=== PATIENT | female | born 1955 | race Caucasian/White ===

== ENCOUNTER 2020-08-11 08:45 | Emergency (ER) | payer MEDICARE, SELFPAY ==
[2020-08-11 09:14] VITALS: BP 216/111; PULSE 65; RESP 16; TEMP 36.6; O2SAT 97; BMI 38.0
--- NOTE | 2020-08-11 09:22 | XR_ITS ---
EXAMINATION: CR SHOULDER, LEFT CLINICAL INFORMATION: Left shoulder pain. COMPARISON: Contralateral right shoulder films from 07/04/2017. TECHNIQUE: AP external rotation, Grashey, scapular Y, and axillary views of the left shoulder. FINDINGS: No acute fracture or dislocation. Glenohumeral joint and acromioclavicular joints intact. Mild degenerative change at the acromioclavicular joint with moderate bursal surface spurring seen. No soft tissue calcification. Included left ribs intact. Low lung volumes are seen with crowding of bronchovascular lung markings in the left lung base. XR/XR shoulder LT min 2V IMPRESSION: No acute fracture or dislocation. Mild degenerative change at the acromioclavicular joint.
--- NOTE | 2020-08-11 09:22 | ECG_ITS ---
Test Reason : SHOULDER PAIN Blood Pressure : / mmHG Vent. Rate : 063 BPM Atrial Rate : 063 BPM P-R Int : 210 ms QRS Dur : 080 ms QT Int : 388 ms P-R-T Axes : 049 -02 010 degrees QTc Int : 397 ms Sinus rhythm with 1st degree A-V block Otherwise normal ECG When compared with ECG of 29-MAR-2019 11:33, No significant change was found Referred By: Marcio Yoo Electronically Signed By:IRENE HOLM MD
--- NOTE | 2020-08-11 09:27 | ED_ITS ---
HPI - General Adult General Chief complaint: Nausea/Vomiting/Diarrhea Stated complaint: neck pain, nausea Time Seen by Provider: 08/11/20 09:10 Source: patient Mode of arrival: ambulatory Limitations: no limitations History of Present Illness HPI narrative: Patient presents to ED for left shoulder pain and nausea. Patient states this morning she woke up and felt a pop in the left shoulder and ever since has had pain. Patient states also having nausea. Patient states no chest pain or shortness of breath. Related Data Previous Rx's Medication Instructions Recorded cyclobenzaprine 10 mg PO TID PRN #18 tab 08/11/20 Allergies Allergy/AdvReac Type Severity Reaction Status Date / Time nitroglycerin [NITROGLYCERIN] Allergy Severe SEVERE Unverified 05/04/20 15:04 HYPOTENSION codeine [CODEINE] Allergy Intermediate RASH Unverified 05/04/20 15:04 Sulfa (Sulfonamide Allergy Intermediate VOMITING Unverified 05/04/20 15:04 Antibiotics) [SULFA (SULFONAMIDE ANTIBIOTICS)] sulfamethoxazole Allergy Intermediate VOMITING Unverified 05/04/20 15:04 [From BACTRIM] trimethoprim [From BACTRIM] Allergy Intermediate UVOMITING Unverified 05/04/20 15:04 Menboav-Tbe-Yaj Reductase AdvReac Severe Severe Unverified 05/04/20 15:04 Inhibitor muscle [[id number] REDUCTASE pain. INHIBITOR] Codeine Phosphate Allergy Unknown Uncoded 11/09/14 00:00 statins Allergy Unknown Uncoded 07/23/19 00:00 Review of Systems Review of Systems: Yes all other systems are reviewed and are negative Constitutional: Constitutional: Reports as per HPI and Reports no additional constitutional complaints Eyes: Eyes: Reports as per HPI and Reports no additional eye complaints ENT: Reports system reviewed and no additional complaints, except as documented and Reports as per HPI Cardiovascular: Cardiovascular: Reports as per HPI and Reports no additional cardiovascular complaints Respiratory: Respiratory: Reports as per HPI and Reports no additional respiratory complaints Gastrointestinal: Gastrointestinal: Reports as per HPI and Reports no additional gastrointestinal complaints Musculoskeletal: Musculoskeletal: Reports no additional musculoskeletal complaints, Reports as per HPI and Reports arthralgias (Left shoulder) Neurologic: Reports system reviewed and no additional complaints, except as documented and Reports as per HPI Psychiatric: Psychiatric: Reports no additional psychiatric complaints and Reports as per HPI FOR[facility]LY [facility], [facility] Social History Social History Alcohol intake: never Smoking Status: Former smoker Smoked in Last 30 Days: No Use of substances other than those prescribed or required for medical reasons: No Advance Directives: No Advance Directives Information Provided: Yes Physical Exam Vital Signs: Vital Signs: Last Vital Signs Temp 97.9 F 08/11/20 09:14 Pulse 65 08/11/20 09:14 Resp 16 08/11/20 09:14 BP 182/96 H 08/11/20 11:37 Pulse Ox 97 08/11/20 09:14 Body Mass Index 38.0 Const: General: cooperative, healthy appearing, comfortable, no acute distress, well developed, alert, awake and Physically active Orientation/consciousness: patient oriented x3 HENMT: Head: Yes normal to inspection, Yes No palpable skull fracture present, Yes normocephalic and Yes atraumatic Eyes: General: appearance normal, both eyes and all related structures Neck: Neck: Yes normal visual inspection, Yes full ROM, Yes no lymphadenopathy, Yes no meningeal signs, Yes trachea midline, Yes supple, No anterior neck swelling and No tender Chest: Chest palpation & inspection: normal inspection of the chest and normal palpation of entire chest wall Resp: Effort & Inspection: normal respiratory effort and able to speak in complete sentences Auscultation: clear to auscultation bilaterally Cardio: Jugular venous distension: no JVD Heart sounds: S1 normal heart sound present and S2 normal heart sound present GI: Inspection: Yes normal to inspection and No abdominal wall ecchymosis Palpation (GI): Soft to palpation, not firm, nontender, no guarding and not rigid : General: No CVA tenderness and Yes no CVA tenderness Back/Spine/Pelvis: Back: no CVA tenderness, No CVA tenderness and No back tenderness Skin: General skin exam: no rashes or lesions noted and elasticity normal Neuro: General: patient oriented x3, gait normal, no meningeal signs and CN's II-XI intact bilaterally Cranial nerves: Yes CN's II-XII intact bilaterally Extrem: Other: Left upper extremity. Negative for any swelling, redness, or deformity of left shoulder. Positive for muscle tenderness on palpation of shoulder. Negative for any bone tenderness. Patient able to lift left upper extremity. Other extremities normal and negative for signs of trauma. Psych: Appearance: grossly normal, well kempt and not disheveled Course Course Course Narrative: Patient's blood pressure systolics 211 to 220. Patient states she took her meds this morning. Elevated blood pressure may be due to pain, but patient also having nausea without abdominal pain. Due to patient age and risk factors will do blood work to make sure patient is not having a heart attack. Patient also sent for head CT to make sure there is no hyperEmergency stroke. Physical exam negative for any neuro deficit. Not suspecting shoulder dislocation. Patient has multiple allergies and going take Tylenol for pain. Tylenol and Flexeril 10 ordered from patient. Reevaluation(s) Reevaluation #1: Patient head CT came back normal. Left shoulder showed d egenerative arthritis. Patient refused to have blood work done. Patient patient was explained blood work was ordered to make sure she was not in acute renal failure or having heart attack from elevated blood pressure. Discussion was made for at least 2 troponins to be done, but patient did not want to stay in the ED and wanted to go home for [place]. My assessment is most likely patient had left shoulder pain from arthritis or possible tear, but due to age and risk factors patient was informed was best to make sure there is no cardiac or kidney injury. Patient states she will return if symptoms worsen. Patient states left shoulder pain resolved with Flexeril. patient was explained risk of , heart attack, disablity, and decrease quality of life before signing out AMA. Time: 11:30 Medical Decision Making MDM Narrative Medical decision making narrative: Shoulder arthritis. Elevated blood pressure ECG Data Interpretation: Sinus rhythm with 1st degree AV block. Ventricular rate 63. VT interval 210. QRS duration 80. QTC 397 Discharge Plan Discharge Clinical Impression: Arthritis of shoulder, Hypertension Patient Disposition: Left Against Medical Advice Instructions: Osteoarthritis (ED), Hypertension (ED) Additional Instructions: Return to the ED immediately for worsening shoulder pain, any chest pain, shortness of breath, headache, dizziness, coughing up blood, blurry vision, or any other concerning symptoms. Prescriptions: New cyclobenzaprine 10 mg tablet 10 mg PO TID PRN (Reason: muscle spasm) Qty: 18 RF: 0 Referrals: Braulio Corrales MD [Primary Care Provider] - 2 days (Left shoulder arthritis. If pain worsens patient may need MRI. Patient also seen in the ED for high blood pressure.) Stand Alone Forms: Against Medical Advice Interventions: ED Discharge Assessment Last Done: 08/11/20 11:52 Discharge Date/Time: 08/11/20 11:55 Print Language: [place]
[2020-08-11] MEDS: Acetaminophen 325 MG TABLET 650 MG PO (09:31)
[2020-08-11] MEDS: Cyclobenzaprine HCl 10 MG TABLET PO (09:32)
--- NOTE | 2020-08-11 09:32 | CT_ITS ---
EXAMINATION: CT HEAD WITHOUT CONTRAST CLINICAL INFORMATION: Elevated blood pressure. Question stroke or bleed. COMPARISON: Report CT head 04/28/2012. TECHNIQUE: Contiguous axial imaging was performed from the skull base to vertex without intravenous administration of contrast. This CT examination was performed using dose optimization techniques as appropriate, variously including the following: *Automated exposure control *Adjustment of mA and/or kV according to patient size (this includes techniques or standardized protocols for targeted exams where dose is matched to indication/reason for exam; i.e. extremities or head) *Use of iterative reconstruction technique DLP: 563 mGy-cm FINDINGS: Incidental note is made of 2 mm inferior ectopia of the right cerebellar tonsil, within normal limits of expected anatomic variation and not sufficient for a Chiari malformation. Moderate segmental calcific atherosclerosis of the cavernous portions of the internal carotid arteries is visualized. The ventricles and sulci are normal in size and configuration. No intracranial hemorrhage, tumors or acute appearing infarcts are visualized. No focal parenchymal lesions of the brain are noted. The orbits and globes are partially included in the image [id number] and demonstrate no abnormalities. Within the visualized paranasal sinuses, mastoid air cells and middle ear cavities, no significant opacification is noted. CT/CT head/brain wo con IMPRESSION: 1. No acute abnormalities. 2. Mild nonocclusive appearing calcific atherosclerosis of the cavernous portions of the internal carotid arteries.
--- NOTE | 2020-08-11 09:32 | PC.NURSE ---
medicated per emar, tolerating po. ambulated to imaging w steady gait.
[2020-08-11 10:41] VITALS: BP 209/97
[2020-08-11 10:48] VITALS: BP 209/97
[2020-08-11] MEDS: cloNIDine HCL 0.2 MG TABLET PO (10:48)
--- NOTE | 2020-08-11 11:31 | PC.NURSE ---
pt doesnt want to stay for blood work, provider at bedside to discuss plan of care. pt deciding to leave ama. education and risks discussed by provider at bedside.
[2020-08-11 11:37] VITALS: BP 182/96
== END 2020-08-11 11:55 | disposition left against medical advice (07) ==
PROVIDERS: Emergency Provider Emergency Medicine Emergency Medical Services; PCP Internal Medicine
DX: M25.512 Pain in left shoulder (principal); M54.2 Cervicalgia; R51.9 Headache, unspecified; M19.012 Primary osteoarthritis, left shoulder; M19.011 Primary osteoarthritis, right shoulder; I10 Essential (primary) hypertension; Z87.891 Personal history of nicotine dependence; Z79.899 Other long term (current) drug therapy
CPT/HCPCS: 70450; 73030; 93005; 99284

== ENCOUNTER 2020-09-22 12:06 | Outpatient (REF) | payer MEDICARE, SELFPAY ==
--- NOTE | ~2020-09-22 | XR_ITS ---
EXAMINATION: XR LUMBOSACRAL SPINE CLINICAL INFORMATION: Back pain COMPARISON: Previous x-ray most recent March 2015 TECHNIQUE: Three views of the lumbosacral spine. FINDINGS: There is mild 5 mm anterior subluxation of L4 with respect L5. Bone alignment is otherwise normal. No fracture or dislocation is seen. There is degenerative disc disease at T12-L1 and L1-L2. There is lower lumbar spine facet arthritis. XR/XR lumbar spine 2-3V IMPRESSION: Degenerative changes.
[2020-09-22 13:28] LABS: MANUAL DIFF FLAG NO
[2020-09-22 13:51] LABS: Basophils Absolute Auto 0.1 X10*3/uL (0.0-0.2); Basophils Percent Auto 0.8 % (0-2); Eosinophils Absolute Auto 0.1 X10*3/uL (0.0-0.4); Eosinophils Percent Auto 1.5 % (0-4); Hematocrit 44.8 % (37-47); Hemoglobin 14.1 g/dl (12.0-16.0); Imm Gran Abs Auto 0.03 X10*3/uL (0.00-0.03); Imm Gran Pct Auto 0.5 % (0.0-0.4); Lymphocytes Absolute Auto 1.1 X10*3/uL (1.2-4.9); Lymphocytes Percent Auto 17.2 % (20-40); Mean Corpuscular HGB Conc 31.5 g/dl (31.0-35.0); Mean Corpuscular Hemoglobin 26.2 pg (27.0-33.0); Mean Corpuscular Volume 83.3 fL (80-98); Monocytes Absolute Auto 0.4 X10*3/uL (0.1-1.2); Monocytes Percent Auto 6.2 % (2-11); Neutrophils Absolute Auto 4.9 X10*3/uL (2.0-8.3); Neutrophils Percent Auto 73.8 % (45-73); Platelet Count 274 X10*3/uL (160-400); Red Blood Count 5.38 X10*6/uL (4.20-5.50); Red Cell Distribution Width 15.6 % (11.0-16.0); White Blood Count 6.6 X10*3/uL (4.8-10.8)
[2020-09-22 14:06] LABS: Alanine Aminotransferase 16 U/L (0-31); Albumin Level 4.3 g/dL (3.5-5.0); Alkaline Phosphatase 68 U/L (39-117); Anion Gap 15 (12-20); Aspartate Amino Transferase 21 U/L (5-31); Bilirubin Total 0.3 mg/dL (0.0-1.0); Blood Urea Nitrogen 15 mg/dL (9-16); C Reactive Protein 0.13 mg/dL (< or = 0.50); Calcium 9.5 mg/dL (8.4-10.2); Carbon Dioxide 26 mmol/L (22-29); Chloride 105 mmol/L (96-108); Estimated Glomerular Filt Rate > 60; Glucose Random 99 mg/dL (60-115); Potassium 4.8 mmol/L (3.3-5.1); Sodium 141 mmol/L (135-145); Total Protein 7.6 g/dL (6.5-8.0)
== END 2020-09-22 12:07 | disposition home or self-care (01) ==
LOC: HO.10HDL 12:06
PROVIDERS: Visit Provider Internal Medicine
DX: M54.9 Dorsalgia, unspecified (principal); I10 Essential (primary) hypertension; M35.00 Sjogren syndrome, unspecified
CPT/HCPCS: 36415; 72100; 80053; 85025; 86140

== ENCOUNTER 2020-10-19 20:00 | Outpatient (REF) | payer MEDICARE, SELFPAY ==
[2020-10-26 18:52] LABS: Saliva Cortisol 0.21 mcg/dL
== END 2020-10-19 20:01 | disposition home or self-care (01) ==
LOC: HO.LNP 20:00
PROVIDERS: Visit Provider Internal Medicine
DX: D35.01 Benign neoplasm of right adrenal gland (principal)
CPT/HCPCS: 82530

== ENCOUNTER 2020-10-20 10:28 | Outpatient (REF) | payer MEDICARE, SELFPAY ==
[2020-10-20 10:52] LABS: Total Volume 24 Hour Urine 750 mL
[2020-10-20 11:28] LABS: Creatinine, mg/dL 127.66
[2020-10-25 07:22] LABS: CATF, 24 Ur Volume 750 mL; CATF-24Ur Creatinine 0.87 g/24 h (0.50-2.15); Catecholamines,Tot. (E+NE) 24U 38 mcg/24 h (26-121); Dopamine, 24 Ur 198 mcg/24 h (52-480); Norepinephrine, 24 Ur 38 mcg/24 h (15-100)
[2020-10-31 13:27] LABS: Metanephrine, Free 24U 117 mcg/24 h (90-315); Normetanephrine, Free 24U 371 mcg/24 h (122-676); Total Metanephrine, Free 24U 488 mcg/24 h (224-832); Total Volume 24U 750 mL
== END 2020-10-20 10:29 | disposition home or self-care (01) ==
LOC: HO.LNP 10:28
PROVIDERS: Visit Provider Internal Medicine
DX: D35.01 Benign neoplasm of right adrenal gland (principal)
CPT/HCPCS: 82384; 82570; 83835

== ENCOUNTER 2020-11-14 10:22 | Outpatient (REF) | payer MEDICARE, SELFPAY ==
--- NOTE | ~2020-11-14 | MR_ITS ---
EXAMINATION: MR LUMBAR SPINE WITHOUT CONTRAST CLINICAL INFORMATION: Back pain and bilateral leg numbness. COMPARISON: Lumbar spine radiographs dated 09/22/2020. TECHNIQUE: MRI of the lumbar spine was obtained using routine sequences without contrast. FINDINGS: There are 5 nonrib-bearing lumbar vertebrae. Lumbar lordosis is preserved. Mild grade 1 anterolisthesis of L4 on L5. Developing Schmorl's node in the L1 inferior endplate. Intervertebral disc heights are relatively limited preserved. Minimal disc desiccation at L5-S1. Vertebral body heights are preserved. The visualized spinal cord is unremarkable. The conus medullaris terminates at the T12-L1 level. Paraspinal soft tissues are within normal limits. Visualized kidneys are unremarkable. Visualized aorta is normal in caliber. No retroperitoneal adenopathy. Level specific observations are as follows: T12-L1: Left paracentral disc bulge mildly effacing the thecal sac at this level. No facet arthrosis. No spinal canal stenosis. No foraminal narrowing. L1-L2: No disc bulge. Normal facets. Normal ligamentum flavum. No spinal canal stenosis. No foraminal narrowing. L2-L3: No disc bulge. No ligamentum flavum hypertrophy. Mild facet arthrosis. No spinal canal stenosis. No foraminal narrowing. L3-L4: No disc bulge. Moderate bilateral facet arthropathy. Mild ligamentum flavum hypertrophy. Mild prominence of dorsal epidural fat. Mild spinal canal stenosis. No foraminal narrowing. L4-L5: Small central disc bulge. Severe bilateral facet arthropathy. Hypertrophic changes of the facet joints approximate the traversing bilateral L5 spinal nerves. Mild to moderate spinal canal stenosis. No foraminal narrowing. L5-S1: Small annular fissure. No disc bulge. No ligamentum flavum hypertrophy. Minimal facet arthrosis. No spinal canal stenosis. No foraminal narrowing. MR/MR lumbar spine wo con IMPRESSION: Lumbar spondylosis most prominent at L4-L5 where there is severe bilateral facet hypertrophy and mild to moderate spinal canal stenosis. Other level specific findings as described above.
== END 2020-11-14 10:23 | disposition home or self-care (01) ==
LOC: HO.MRI 10:22
PROVIDERS: Visit Provider Internal Medicine
DX: R20.2 Paresthesia of skin (principal); M54.9 Dorsalgia, unspecified
CPT/HCPCS: 72148

== ENCOUNTER → 2021-01-31 08:21 | Outpatient (BNVA) | payer MEDICARE, SELFPAY | PROVIDERS: PCP Internal Medicine; Referring Provider Internal Medicine; Visit Provider Internal Medicine | CPT/HCPCS: Q3014 ==

== ENCOUNTER 2021-02-09 09:41 | Day surgery (SDC) | payer MEDICARE, SELFPAY ==
[2021-02-09 10:11] VITALS: BMI 35.5
[2021-02-09 10:26] VITALS: BP 186/89; PULSE 64; RESP 18; TEMP 36.2; O2SAT 96
--- NOTE | 2021-02-09 10:50 | P.CONAN_ITS ---
HPI - Anesthesia Eval Consult details Narrative: 65 year old female patient for EGD PMFSH Active Problems Active Problems: All Active Problems (Updated 02/09/21 @ 10:15 by Rafael Tellez RN) Vitamin D deficiency (Acute) Adrenal adenoma (Acute) Past Medical History Medical History (Updated 02/09/21 @ 11:03 by Riya Thornton) Adrenal adenoma Benitez esophagus Cervical cancer COVID-19 vaccine administered GERD (gastroesophageal reflux disease) HTN (hypertension) Hyperlipidemia IBS (irritable bowel syndrome) Snoring Vitamin D deficiency Family History Family History Father Lung cancer Mother Diabetes mellitus HTN (hypertension) COPD (chronic obstructive pulmonary disease) Surgical History Surgical History History of cholecystectomy History of rectal polypectomy History of repair of hiatal hernia History of tonsillectomy Hx of colonoscopy Hx of hernia repair Hx of hysterectomy Social History Social History Alcohol intake: never Patient Tobacco Use Status: Never used Tobacco Second Hand Smoke Exposure: Yes Use of substances other than those prescribed or required for medical reasons: No Are you DNR?: No Advance Directives: No Advance Directives Information Provided: Yes Advance Directives on File: No Meds Allergies Allergy/AdvReac Type Severity Reaction Status Date / Time nitroglycerin [NITROGLYCERIN] Allergy Severe SEVERE Verified 02/02/21 09:49 HYPOTENSION codeine [CODEINE] Allergy Intermediate RASH Verified 02/02/21 09:49 Sulfa (Sulfonamide Allergy Intermediate VOMITING Verified 02/02/21 09:49 Antibiotics) [SULFA (SULFONAMIDE ANTIBIOTICS)] sulfamethoxazole Allergy Intermediate VOMITING Verified 02/02/21 09:49 [From BACTRIM] trimethoprim [From BACTRIM] Allergy Intermediate Vomiting Verified 02/02/21 09:49 [place]we[place]-Qpw-Ofs Reductase AdvReac Severe Severe Verified 02/02/21 09:49 Inhibitor muscle [[id number] REDUCTASE pain. INHIBITOR] Active Medications: Current Medications Generic Name Dose Route Start Last Admin Trade Name Freq PRN Reason Stop Dose Admin Lactated Ringer's 1,000 mls @ 100 mls/hr 02/09/21 11:00 Lr IVCONT .Q10H [facility] Home Medications Medication Instructions Recorded Confirmed Last Taken Type atenolol 50 mg tablet 25 mg PO DAILY 01/31/21 02/02/21 02/09/21 History cholecalciferol (vitamin D3) 25 25 mcg PO DAILY 01/31/21 02/02/21 Unknown History mcg (1,000 unit) capsule hydrochlorothiazide 12.5 mg capsule 12.5 mg PO Q OTHER DAY 01/31/21 02/02/21 Unknown History losartan 50 mg tablet 50 mg PO DAILY 01/31/21 02/02/21 Unknown History pantoprazole 40 mg tablet,delayed 40 mg PO DAILY 01/31/21 02/02/21 02/09/21 History release Exam Exam Date and Time: February 09, 2021 1050 Height,Weight and Vital Signs: Height 5 ft 1 in Weight 85.275 kg Last Vital Signs Temp 97.2 F 02/09/21 10:26 Pulse 64 02/09/21 10:26 Resp 18 02/09/21 10:26 BP 186/89 H 02/09/21 10:26 Pulse Ox 96 02/09/21 10:26 Airway Mallampati Class: II TM Dist: >3cm Neck ROM: Full Denture: Upper and Lower Heart: RRR Lungs: CTAB Assessment and Plan Assessment Anesthesia Assessment: Anesthesia Plan Discussed and Chart Reviewed Final Anesthetic Review NPO: Yes ASA Class: II Final Preanesthetic Review: No Changes in Pt Med Stat, Meds/Allgs Chart Reviewed, Consent Obtained/Reviewed and Anes Risks/Benef Reviewed Patient Risk: Intermediate Procedure Risk: Low Assessment/Block/Sedation in SS: Assess/Block/Sedation-SS Anesthetic Plan Anesthetic Plan: MAC: Disposition: Standard PACU
[2021-02-09] MEDS: Lactated Ringers 1,000 ML 100 ML IVCONT (10:59)
[2021-02-09] MEDS: ondansetron HCL 4 MG/2 ML VIAL IVPUSH (11:03)
--- NOTE | 2021-02-09 11:04 | MHC.SHP ---
Pre-Procedural Eval Section A Date of Service: 02/09/21 The patient is an INPATIENT: No The History & Physical has been completed within 30 days and I have reviewed it.: Yes Section B Chief Complaint: barretts Allergies: Allergies Allergy/AdvReac Type Severity Reaction Status Date / Time nitroglycerin [NITROGLYCERIN] Allergy Severe SEVERE Verified 02/02/21 09:49 HYPOTENSION codeine [CODEINE] Allergy Intermediate RASH Verified 02/02/21 09:49 Sulfa (Sulfonamide Allergy Intermediate VOMITING Verified 02/02/21 09:49 Antibiotics) [SULFA (SULFONAMIDE ANTIBIOTICS)] sulfamethoxazole Allergy Intermediate VOMITING Verified 02/02/21 09:49 [From BACTRIM] trimethoprim [From BACTRIM] Allergy Intermediate Vomiting Verified 02/02/21 09:49 Ljpdfuk-Yqp-Pij Reductase AdvReac Severe Severe Verified 02/02/21 09:49 Inhibitor muscle [[id number] REDUCTASE pain. INHIBITOR] Plan I have reviewed the history and physical and performed a pertinent physical examination on my patient. No changes have occurred unless specified.
[2021-02-09 11:37] VITALS: BP 107/57; PULSE 64; RESP 16; TEMP 36.9; O2SAT 94
--- NOTE | 2021-02-09 11:40 | PM.OP ---
Brief Operative Note Date of Service: 02/09/21 Pre-op diagnosis: barretts esophagus Post-op diagnosis: same Procedure: egd Surgeon: Noel Robert Anesthesia: MAC Estimated blood loss (mL): 2 Pathology: other (see request) Condition: stable Disposition: PACU
[2021-02-09 11:55] VITALS: BP 123/68; PULSE 59; RESP 18; TEMP 36.9; O2SAT 95
--- NOTE | 2021-02-09 20:37 | OP_ITS ---
SURGEON: Noel Robert MD INDICATIONS: 1. Benitez esophagus. 2. Epigastric pain. PREOPERATIVE DIAGNOSIS: POSTOPERATIVE DIAGNOSIS: PROCEDURE PERFORMED: Upper endoscopy with biopsy. ESTIMATED BLOOD LOSS: COMPLICATIONS: ANESTHESIA: Monitored anesthesia care. ASSISTANTS: SPECIMENS: DESCRIPTION OF PROCEDURE: History and physical performed. The risks and benefits of the procedure were explained to the patient. Informed consent was obtained. The patient was placed in the left lateral decubitus position. The Olympus video gastroscope was introduced into the esophagus, stomach, and duodenum. Examination was performed. The scope was removed. She tolerated the procedure well and was taken to recovery area in stable condition. FINDINGS: Esophagus: The esophagus showed erosive esophagitis over the last 2 cm to 4 cm with superficial ulceration. There was no active bleeding. There was a 2 cm length of Benitez esophagus. Biopsies were obtained from the EG junction and at 28 cm. There were no raised lesions or obvious malignancy. Stomach: Showed no evidence of masses or ulcers. Multiple benign-appearing gastric polyps were present in the body and fundus upwards of 8 mm to 10 mm. Two biopsies were obtained from the benign-appearing polyps. Antral biopsies were also obtained. Duodenum: The bulb and second portion were normal. IMPRESSION: 1. Benitez esophagus. 2. Erosive esophagitis. RECOMMENDATION: Follow up biopsy results. MD PATRICIA Erazo/LUDIN / [id number]
== END 2021-02-09 13:08 | disposition home or self-care (01) ==
PROVIDERS: PCP Internal Medicine; Visit Provider Internal Medicine Gastroenterology
PROC: 0DJ08ZZ Inspection of Upper Intestinal Tract, Via Natural or Artificial Opening Endoscopic (ICD-10-PCS; CPT 43235; principal; 2021-02-09 10:50)
DX: K22.70 Barrett's esophagus without dysplasia (principal); K21.9 Gastro-esophageal reflux disease without esophagitis; K20.80 Other esophagitis without bleeding; K31.7 Polyp of stomach and duodenum; K58.9 Irritable bowel syndrome, unspecified; I10 Essential (primary) hypertension; E55.9 Vitamin D deficiency, unspecified; Z79.899 Other long term (current) drug therapy; Z88.8 Allergy status to other drugs, medicaments and biological substances; Z88.2 Allergy status to sulfonamides; Z85.41 Personal history of malignant neoplasm of cervix uteri; Z90.710 Acquired absence of both cervix and uterus; Z90.49 Acquired absence of other specified parts of digestive tract
CPT/HCPCS: 43239; 88305; 88342; J2405; J3010

== ENCOUNTER 2021-03-09 09:42 | Outpatient (REF) | payer MEDICARE, SELFPAY ==
[2021-03-09 10:50] LABS: MANUAL DIFF FLAG NO
[2021-03-09 10:58] LABS: Basophils Percent Auto 0.6 % (0-2); Eosinophils Absolute Auto 0.2 X10*3/uL (0.0-0.4); Eosinophils Percent Auto 2.9 % (0-4); Hematocrit 45.7 % (37-47); Hemoglobin 14.6 g/dl (12.0-16.0); Imm Gran Abs Auto 0.04 X10*3/uL (0.00-0.03); Imm Gran Pct Auto 0.6 % (0.0-0.4); Lymphocytes Absolute Auto 1.6 X10*3/uL (1.2-4.9); Lymphocytes Percent Auto 23.5 % (20-40); Mean Corpuscular HGB Conc 31.9 g/dl (31.0-35.0); Mean Corpuscular Hemoglobin 27.7 pg (27.0-33.0); Mean Corpuscular Volume 86.6 fL (80-98); Mean Platelet Volume 11.3 fL (9.4-12.3); Monocytes Absolute Auto 0.6 X10*3/uL (0.1-1.2); Monocytes Percent Auto 7.9 % (2-11); Neutrophils Absolute Auto 4.5 X10*3/uL (2.0-8.3); Neutrophils Percent Auto 64.5 % (45-73); Platelet Count 243 X10*3/uL (160-400); Red Blood Count 5.28 X10*6/uL (4.20-5.50); Red Cell Distribution Width 14.3 % (11.0-16.0)
[2021-03-09 11:29] LABS: Alanine Aminotransferase 13 U/L (0-31); Albumin Level 4.1 g/dL (3.5-5.0); Alkaline Phosphatase 64 U/L (39-117); Anion Gap 14 (12-20); Aspartate Amino Transferase 21 U/L (5-31); Bilirubin Total 0.4 mg/dL (0.0-1.0); Blood Urea Nitrogen 20 mg/dL (9-16); Calcium 9.9 mg/dL (8.4-10.2); Carbon Dioxide 26 mmol/L (22-29); Chloride 103 mmol/L (96-108); Estimated Glomerular Filt Rate 53; Glucose Random 110 mg/dL (60-115); Iron 78 mcg/dL (30-160); Percent Iron Saturation 18 % (15-50); Potassium 4.3 mmol/L (3.3-5.1); Sodium 139 mmol/L (135-145); Total Iron Binding Capacity 428 mcg/dL (228-428); Total Protein 7.2 g/dL (6.5-8.0); Unsaturated Iron Binding 350 ug/dL
[2021-03-09 11:42] LABS: Thyroid Stimulating Hormone 1.19 uIU/mL (0.32-4.0)
== END 2021-03-09 09:43 | disposition home or self-care (01) ==
LOC: HO.LAB 09:42
PROVIDERS: PCP Internal Medicine; Visit Provider Internal Medicine
DX: I10 Essential (primary) hypertension (principal); M85.80 Other specified disorders of bone density and structure, unspecified site; K22.70 Barrett's esophagus without dysplasia
CPT/HCPCS: 36415; 80053; 83540; 84443; 85025

== ENCOUNTER 2021-09-11 09:45 | Outpatient (REF) | payer MEDICARE, SELFPAY ==
[2021-09-11 10:16] LABS: MANUAL DIFF FLAG NO
[2021-09-11 10:18] LABS: Basophils Absolute Auto 0.1 X10*3/uL (0.0-0.2); Basophils Percent Auto 0.8 % (0-2); Eosinophils Absolute Auto 0.1 X10*3/uL (0.0-0.4); Eosinophils Percent Auto 1.9 % (0-4); Hematocrit 43.6 % (37.0-47.0); Hemoglobin 14.1 g/dl (12.0-16.0); Imm Gran Abs Auto 0.02 X10*3/uL (0.00-0.03); Imm Gran Pct Auto 0.3 % (0.0-0.4); Lymphocytes Absolute Auto 1.4 X10*3/uL (1.2-4.9); Lymphocytes Percent Auto 21.9 % (20-40); Mean Corpuscular HGB Conc 32.3 g/dl (31.0-35.0); Mean Corpuscular Hemoglobin 27.6 pg (27.0-33.0); Mean Corpuscular Volume 85.5 fL (80.0-98.0); Mean Platelet Volume 11.1 fL (9.4-12.3); Monocytes Absolute Auto 0.4 X10*3/uL (0.1-1.2); Monocytes Percent Auto 6.9 % (2-11); Neutrophils Absolute Auto 4.2 x10*3/uL (2.0-8.3); Neutrophils Percent Auto 68.2 % (45-73); Platelet Count 222 X10*3/uL (160-400); Red Cell Distribution Width 14.3 % (11.0-16.0); White Blood Count 6.2 X10*3/uL (4.8-10.8)
[2021-09-11 10:38] LABS: Estimated Average Glucose 120 mg/dL; Hemoglobin A1c % 5.8 %
[2021-09-11 10:50] LABS: Alanine Aminotransferase 19 U/L (0-31); Alkaline Phosphatase 55 U/L (39-117); Anion Gap 12 (12-20); Aspartate Amino Transferase 23 U/L (5-31); Bilirubin Total 0.5 mg/dL (0.0-1.0); Blood Urea Nitrogen 17 mg/dL (9-16); Calcium 9.8 mg/dL (8.4-10.2); Carbon Dioxide 26 mmol/L (22-29); Chloride 105 mmol/L (96-108); Cholesterol 270 mg/dL; Estimated Glomerular Filt Rate 53; Glucose Fasting 105 mg/dL (60-99); HDL Cholesterol 50 mg/dL; LDL Cholesterol Calculated 181 mg/dl; Potassium 4.4 mmol/L (3.3-5.1); Sodium 139 mmol/L (135-145); Total Protein 7.4 g/dL (6.5-8.0); Triglycerides 198 mg/dL
== END 2021-09-11 09:46 | disposition home or self-care (01) ==
LOC: HO.10HDL 09:45
PROVIDERS: Visit Provider Internal Medicine
DX: K21.9 Gastro-esophageal reflux disease without esophagitis (principal); R73.03 Prediabetes; M85.80 Other specified disorders of bone density and structure, unspecified site; I12.9 Hypertensive chronic kidney disease with stage 1 through stage 4 chronic kidney disease, or unspecified chronic kidney disease; N18.9 Chronic kidney disease, unspecified; M54.9 Dorsalgia, unspecified
CPT/HCPCS: 36415; 80053; 80061; 82306; 83036; 85025

== ENCOUNTER 2021-11-30 09:47 | Outpatient (REF) | payer MEDICARE, SELFPAY ==
--- NOTE | ~2021-11-30 | MM_ITS ---
EXAMINATION: MM SCREENING DIGITAL BREAST TOMOSYNTHESIS, BILATERAL CLINICAL INFORMATION: Screening. Asymptomatic. The lifetime risk of breast cancer based on the Tyrer-Cuzick Model is 2%. COMPARISON: Mammography: 11/17/2015 TECHNIQUE: Digital breast tomosynthesis is performed in both the craniocaudal and mediolateral oblique views along with computer-aided detection (CAD). Synthesized 2D images are generated from the tomosynthesis. FINDINGS: There are scattered areas of fibroglandular density (ACR BI-RADS breast composition Category b). There are no significant masses, abnormal calcifications, or other abnormalities. Parenchymal pattern is similar to prior exam. There are stable minor parenchymal asymmetries outer quadrants. The axilla and skin contours are unremarkable. No significant changes. MM/MM tomosynthesis screening BI IMPRESSION: No mammographic evidence of malignancy. ASSESSMENT: BI-RADS 2: Benign RECOMMENDATION: Routine annual mammography screening. This patient's information was entered into a reminder system with a target due date for their next mammogram.
== END 2021-11-30 09:48 | disposition home or self-care (01) ==
LOC: HO.MAMMO 09:47
PROVIDERS: PCP Internal Medicine; Visit Provider Internal Medicine
DX: Z12.31 Encounter for screening mammogram for malignant neoplasm of breast (principal)
CPT/HCPCS: 77063; 77067

== ENCOUNTER 2022-01-07 14:15 | Outpatient (REF) | payer MEDICARE, SELFPAY ==
[2022-01-07 15:01] LABS: Influenza A PCR NEGATIVE (Negative); Influenza B PCR NEGATIVE (Negative); Resp Syncy Virus RNA Qual PCR NEGATIVE (Negative); SARS COV2 PCR INHOUSE NEGATIVE (Negative)
== END 2022-01-07 14:16 | disposition home or self-care (01) ==
LOC: HO.LNP 14:15
PROVIDERS: Visit Provider Internal Medicine
DX: Z20.822 Contact with and (suspected) exposure to COVID-19 (principal); R51.9 Headache, unspecified
CPT/HCPCS: 0241U

== ENCOUNTER 2022-01-08 15:43 | Outpatient (REF) | payer MEDICARE, SELFPAY ==
[2022-01-08 16:07] LABS: MANUAL DIFF FLAG NO
[2022-01-08 16:20] LABS: Basophils Absolute Auto 0.1 X10*3/uL (0.0-0.2); Basophils Percent Auto 0.8 % (0-2); Eosinophils Absolute Auto 0.1 X10*3/uL (0.0-0.4); Eosinophils Percent Auto 1.8 % (0-4); Hematocrit 44.4 % (37.0-47.0); Hemoglobin 14.2 g/dl (12.0-16.0); Imm Gran Abs Auto 0.03 X10*3/uL (0.00-0.03); Imm Gran Pct Auto 0.5 % (0.0-0.4); Lymphocytes Absolute Auto 1.5 X10*3/uL (1.2-4.9); Lymphocytes Percent Auto 22.7 % (20-40); Mean Corpuscular Hemoglobin 27.4 pg (27.0-33.0); Mean Corpuscular Volume 85.5 fL (80.0-98.0); Mean Platelet Volume 10.6 fL (9.4-12.3); Monocytes Absolute Auto 0.6 X10*3/uL (0.1-1.2); Monocytes Percent Auto 9.5 % (2-11); Neutrophils Absolute Auto 4.3 x10*3/uL (2.0-8.3); Neutrophils Percent Auto 64.7 % (45-73); Platelet Count 238 X10*3/uL (160-400); Red Blood Count 5.19 X10*6/uL (4.20-5.50); White Blood Count 6.6 X10*3/uL (4.8-10.8)
[2022-01-08 16:41] LABS: Appearance Urine CLEAR; Color Urine YELLOW; Glucose Urine UA NEG (NEG); Leukocyte Esterase Urine 1+ (NEG); Nitrite Urine NEG (NEG); PH 5.5 (5.0-8.0); Specific Gravity - Urine 1.025 (1.005-1.025); UACC Culture Trigger YES; Urine Blood NEG (NEG); Urine Ketones NEG (NEG); Urine Protein NEG (NEG-TRACE)
[2022-01-08 16:43] LABS: Alanine Aminotransferase 24 U/L (0-31); Alkaline Phosphatase 56 U/L (39-117); Anion Gap 12 (12-20); Aspartate Amino Transferase 26 U/L (5-31); Bilirubin Total 0.3 mg/dL (0.0-1.0); Blood Urea Nitrogen 16 mg/dL (9-16); Calcium 9.8 mg/dL (8.4-10.2); Carbon Dioxide 27 mmol/L (22-29); Chloride 104 mmol/L (96-108); Estimated Glomerular Filt Rate 51; Glucose Random 86 mg/dL (60-115); Potassium 4.2 mmol/L (3.3-5.1); Sodium 139 mmol/L (135-145); Total Protein 7.4 g/dL (6.5-8.0)
[2022-01-08 16:56] LABS: Bacteria Urine 2+ /LPF; Mucus Urine TRACE /LPF; RBC Urine 0-2 /HPF (0); Squamous Epithelial Cell Urine 2+ /LPF
== END 2022-01-08 15:44 | disposition home or self-care (01) ==
LOC: HO.LAB 15:43
PROVIDERS: PCP Internal Medicine; Visit Provider Internal Medicine
DX: J06.9 Acute upper respiratory infection, unspecified (principal); B34.9 Viral infection, unspecified; R11.2 Nausea with vomiting, unspecified
CPT/HCPCS: 36415; 80053; 81001; 85025; 87086

== ENCOUNTER 2022-06-21 11:58 | Outpatient (REF) | payer MEDICARE, SELFPAY ==
--- NOTE | ~2022-06-21 | XR_ITS ---
EXAMINATION: CERVICAL SPINE AND RIGHT SHOULDER. CLINICAL INFORMATION: Pain in right shoulder COMPARISON: None TECHNIQUE: Right shoulder 4 views. Cervical spine 5 views. FINDINGS: RIGHT SHOULDER: There is moderate loss of right AC joint with periarticular spurring. The glenohumeral joint space is normal. No visible acute fracture, dislocation or subluxation seen. The soft tissues are normal. CERVICAL SPINE: There is mild straightening of cervical lordosis. The vertebral heights and alignment is normal. There is loss of C5-C6 and C6-C7 disc heights with ventral spondylosis. On oblique views there is moderate narrowing of right C3-C4 and mild right C5-C6 and C6-C7 neural foramina. No visible acute fracture, dislocation or subluxation seen. The prevertebral soft tissues are normal. XR/XR shoulder RT min 2V IMPRESSION: 1. Degenerative arthritic changes right A.C. joint. No visible acute fracture or dislocation seen. 2. Degenerative disc changes C5-C6 and C6-C7 disc levels with ventral spondylosis. No visible acute fracture or dislocation seen.
--- NOTE | ~2022-06-21 | XR_ITS ---
EXAMINATION: CERVICAL SPINE AND RIGHT SHOULDER. CLINICAL INFORMATION: Pain in right shoulder COMPARISON: None TECHNIQUE: Right shoulder 4 views. Cervical spine 5 views. FINDINGS: RIGHT SHOULDER: There is moderate loss of right AC joint with periarticular spurring. The glenohumeral joint space is normal. No visible acute fracture, dislocation or subluxation seen. The soft tissues are normal. CERVICAL SPINE: There is mild straightening of cervical lordosis. The vertebral heights and alignment is normal. There is loss of C5-C6 and C6-C7 disc heights with ventral spondylosis. On oblique views there is moderate narrowing of right C3-C4 and mild right C5-C6 and C6-C7 neural foramina. No visible acute fracture, dislocation or subluxation seen. The prevertebral soft tissues are normal. XR/XR cervical spine 4V IMPRESSION: 1. Degenerative arthritic changes right A.C. joint. No visible acute fracture or dislocation seen. 2. Degenerative disc changes C5-C6 and C6-C7 disc levels with ventral spondylosis. No visible acute fracture or dislocation seen.
[2022-06-21 13:39] LABS: MANUAL DIFF FLAG NO
[2022-06-21 13:43] LABS: Basophils Absolute Auto 0.1 X10*3/uL (0.0-0.2); Eosinophils Absolute Auto 0.2 X10*3/uL (0.0-0.4); Eosinophils Percent Auto 2.6 % (0-4); Hemoglobin 14.7 g/dl (12.0-16.0); Imm Gran Abs Auto 0.04 X10*3/uL (0.00-0.03); Imm Gran Pct Auto 0.5 % (0.0-0.4); Lymphocytes Absolute Auto 1.7 X10*3/uL (1.2-4.9); Lymphocytes Percent Auto 23.2 % (20-40); Mean Corpuscular Hemoglobin 27.4 pg (27.0-33.0); Mean Corpuscular Volume 85.7 fL (80.0-98.0); Mean Platelet Volume 11.5 fL (9.4-12.3); Monocytes Absolute Auto 0.6 X10*3/uL (0.1-1.2); Monocytes Percent Auto 8.7 % (2-11); Neutrophils Absolute Auto 4.7 x10*3/uL (2.0-8.3); Platelet Count 246 X10*3/uL (160-400); Red Blood Count 5.37 X10*6/uL (4.20-5.50); Red Cell Distribution Width 14.4 % (11.0-16.0); White Blood Count 7.3 X10*3/uL (4.8-10.8)
[2022-06-21 14:10] LABS: Alanine Aminotransferase 19 U/L (0-31); Albumin Level 4.2 g/dL (3.5-5.0); Alkaline Phosphatase 58 U/L (39-117); Anion Gap 18 (12-20); Aspartate Amino Transferase 21 U/L (5-31); Bilirubin Total 0.4 mg/dL (0.0-1.0); Blood Urea Nitrogen 18 mg/dL (9-16); C Reactive Protein 0.16 mg/dL (< or = 0.50); Calcium 9.8 mg/dL (8.4-10.2); Carbon Dioxide 25 mmol/L (22-29); Chloride 101 mmol/L (96-108); Estimated Glomerular Filt Rate 53; Glucose Random 89 mg/dL (60-115); Potassium 4.7 mmol/L (3.3-5.1); Sodium 139 mmol/L (135-145); Total Protein 7.6 g/dL (6.5-8.0)
== END 2022-06-21 11:59 | disposition home or self-care (01) ==
LOC: HO.10HDL 11:58
PROVIDERS: Visit Provider Internal Medicine
DX: M54.2 Cervicalgia (principal); M25.511 Pain in right shoulder; I10 Essential (primary) hypertension
CPT/HCPCS: 36415; 72050; 73030; 80053; 85025; 86140

== ENCOUNTER → 2022-07-23 13:43 | Outpatient (BNVA) | payer MEDICARE, SELFPAY | PROVIDERS: PCP Internal Medicine; Visit Provider Physician Assistant | DX: M19.011 Primary osteoarthritis, right shoulder (principal); M25.511 Pain in right shoulder | CPT/HCPCS: 99202 ==

== ENCOUNTER 2022-10-24 07:45 | Emergency (ER) | payer MEDICARE, SELFPAY ==
[2022-10-24] VITALS (7 sets, daily range): BP systolic 144–205; BP diastolic 76–110; PULSE 70–80; RESP 11–20; TEMP 36.7–36.8; O2SAT 96–97; BMI 38.7
--- NOTE | ~2022-10-24 | XR_ITS ---
EXAMINATION: XR CHEST CLINICAL INFORMATION: Chest pain COMPARISON: 06/09/[address] abdomen pelvis 06/23/2019 TECHNIQUE: Frontal view of the chest was obtained. FINDINGS: No significant abnormality is noted involving the heart, lungs, mediastinum, bony thorax or soft tissues. Again seen is a small hiatal hernia. XR/XR chest 1V IMPRESSION: No acute intrathoracic disease. Small hiatal hernia.
--- NOTE | ~2022-10-24 | CT_ITS ---
EXAMINATION: CTA CHEST, ABDOMEN AND PELVIS CLINICAL INFORMATION: Reason for Exam chest pain going to the back COMPARISON: CTA chest 06/09/2014 TECHNIQUE: Multidetector volumetric imaging was performed from the thoracic inlet through the pubic symphysis both before as well as following administration of 100 mL of Omnipaque 350. Sagittal and coronal reformatted images were obtained on the technologist's workstation. Additional 2-D coronal and sagittal reformatted images and axial 3-D maximum intensity projection MIP images are generated on the CT workstation. This CT examination was performed using dose optimization techniques as appropriate, variously including the following: *Automated exposure control *Adjustment of mA and/or kV according to patient size (this includes techniques or standardized protocols for targeted exams where dose is matched to indication/reason for exam; i.e. extremities or head) *Use of iterative reconstruction technique DLP: 745 mGy-cm VASCULAR FINDINGS: The thoracic aorta appears normal without evidence of aneurysm, dissection. Mild calcific plaque is present. Tricuspid aortic valve is seen with a normal three-vessel branching pattern of the arch with widely patent great vessels. The abdominal aorta and iliofemoral vessels appear normal. No abdominal aortic aneurysm or dissection is seen. No significant atherosclerotic changes are present. The celiac SMA and PAM are all widely patent. There are 2 right-sided renal arteries and single left-sided rib which are widely patent. Although not carried out for evaluation of the pulmonary arteries or pulmonary veins, no abnormalities are seen. No pulmonary emboli are detected. NONVASCULAR FINDINGS: CHEST: Lung: The lungs are clear without focal opacity or nodule. Mediastinum: The mediastinum is normal. The central vascular structures are unremarkable. No hilar or mediastinal lymphadenopathy. Coronary Artery Calcification: Present Pericardium/Pleura: No significant effusion. No pleural mass or thickening. Chest Wall/Axilla: Unremarkable ABDOMEN/PELVIS: Peritoneal Space: No significant free air or free fluid identified. Liver, Gallbladder, Biliary Tree: The liver is normal in size, shape, and attenuation. No focal hepatic lesion or biliary ductal dilatation is present. Status post cholecystectomy Pancreas: Unremarkable Spleen: Unremarkable Adrenal Glands: There is a 1.4 cm benign left adrenal adenoma which measures water density even after IV contrast with a similar smaller 0.7 cm nodule on the right. Kidneys and Ureters: The kidneys are normal in size, shape, and attenuation. No hydronephrosis, hydroureter, or calculi seen. No perinephric stranding. Bladder: Unremarkable Gastrointestinal Tract: There is colonic diverticulosis without diverticulitis. The small and large bowel are otherwise unremarkable. The appendix is unremarkable. Abdominal Wall: No significant hernia is appreciated. Lymph Nodes: No lymphadenopathy. PELVIC VISCERA: Uterus is not seen. An abnormal adnexal mass or free intraperitoneal fluid is not present OSSEUS STRUCTURES: Mild degenerative changes are noted in the spine. Mild grade 1 anterolisthesis L4 upon L5. No bony destructive lesions are seen. CT/CT angio abdomen pelvis IMPRESSION: 1. No evidence of aortic aneurysm or or any other acute aortic syndrome. 2. No pulmonary emboli are seen. 3. Incidental note made of bilateral benign adrenal adenomas, cholecystectomy, colonic diverticulosis, hysterectomy and degenerative changes in the spine with grade 1 anterolisthesis L4 upon L5. Fleischner guidelines were followed.
--- NOTE | 2022-10-24 07:46 | ECG_ITS ---
Test Reason : cp Blood Pressure : / mmHG Vent. Rate : 075 BPM Atrial Rate : 075 BPM P-R Int : 226 ms QRS Dur : 082 ms QT Int : 366 ms P-R-T Axes : 076 -14 023 degrees QTc Int : 408 ms Sinus rhythm with 1st degree A-V block Cannot rule out Anterior infarct , age undetermined Abnormal ECG When compared with ECG of 11-AUG-2020 09:47, No significant change was found Referred By: Generic ED Physician Electronically Signed By:JULIEN FENG
[2022-10-24 08:52] LABS: MANUAL DIFF FLAG NO
[2022-10-24 08:57] LABS: Basophils Absolute Auto 0.1 X10*3/uL (0.0-0.2); Basophils Percent Auto 0.4 % (0-2); Eosinophils Percent Auto 0.3 % (0-4); Hematocrit 45.6 % (37.0-47.0); Imm Gran Abs Auto 0.06 X10*3/uL (0.00-0.03); Imm Gran Pct Auto 0.5 % (0.0-0.4); Lymphocytes Percent Auto 8.5 % (20-40); Mean Corpuscular HGB Conc 32.9 g/dl (31.0-35.0); Mean Corpuscular Hemoglobin 27.7 pg (27.0-33.0); Mean Corpuscular Volume 84.1 fL (80.0-98.0); Mean Platelet Volume 10.7 fL (9.4-12.3); Monocytes Absolute Auto 0.5 X10*3/uL (0.1-1.2); Monocytes Percent Auto 4.7 % (2-11); Neutrophils Absolute Auto 9.6 x10*3/uL (2.0-8.3); Neutrophils Percent Auto 85.6 % (45-73); Platelet Count 263 X10*3/uL (160-400); Red Blood Count 5.42 X10*6/uL (4.20-5.50); Red Cell Distribution Width 14.2 % (11.0-16.0); White Blood Count 11.3 X10*3/uL (4.8-10.8)
--- NOTE | 2022-10-24 09:03 | PC.NURSE ---
pt is a/o x 4 no sob/mary noted speaks in full sentences. lungs - cta. heart sounds - regular. abd soft and noon-tender. bx s + x 4 quads. pt c/o chest since last night with reflux. pt states that she took her omperazole this am and her other require meds. pt seen by er md. pt/ aware of plan of care.
[2022-10-24 09:09] LABS: Prothrombin Time 11.9 SEC (10.0-13.1)
[2022-10-24 09:11] LABS: Partial Thromboplastin Time 31.5 SEC (26.0-36.4)
[2022-10-24 09:15] LABS: Anion Gap 13 (12-20); Blood Urea Nitrogen 15 mg/dL (9-16); Calcium 9.9 mg/dL (8.4-10.2); Carbon Dioxide 29 mmol/L (22-29); Chloride 101 mmol/L (96-108); Creatinine Clr Calc Pharmacy 53.4; Estimated Glomerular Filt Rate 54; Glucose Random 133 mg/dL (60-115); Potassium 4.4 mmol/L (3.3-5.1); Sodium 139 mmol/L (135-145)
[2022-10-24 09:23] LABS: Troponin-I High Sensitivity 4.6 ng/L (<3.5-17.0)
--- NOTE | 2022-10-24 09:36 | ED.CHESTPAIN ---
HPI - Chest Pain General Chief Complaint: Chest Pain Stated Complaint: Chest pain Time Seen by Provider: 10/24/22 08:06 History of Present Illness HPI narrative: Patient is a 67-year-old female presents today with chest pain. Chest pain is sharp it goes to the back was fairly sudden onset is been ongoing about 6 hours. Patient had mild shortness of breath. No diaphoresis. Positive history of hypertension positive history of high cholesterol no history of smoking no history of HI no history of dissection patient has been compliant with her medication the different blood pressure medicine. No coughing no congestion or upper respiratory symptoms. No diaphoresis. Patient is from home. Related Data Home Medications Medication Instructions Recorded Confirmed atenolol 50 mg tablet 25 mg PO DAILY 01/31/21 02/02/21 cholecalciferol (vitamin D3) 25 25 mcg PO DAILY 01/31/21 02/02/21 mcg (1,000 unit) capsule hydrochlorothiazide 12.5 mg capsule 12.5 mg PO Q OTHER DAY 01/31/21 02/02/21 losartan 50 mg tablet 50 mg PO DAILY 01/31/21 02/02/21 omeprazole 20 mg capsule,delayed 20 mg PO DAILY 07/23/22 release Previous Rx's Medication Instructions Recorded meloxicam 15 mg tablet 15 mg PO DAILY 30 days #30 tabs 07/23/22 Allergies Allergy/AdvReac Type Severity Reaction Status Date / Time nitroglycerin [NITROGLYCERIN] Allergy Severe SEVERE Verified 02/02/21 09:49 HYPOTENSION codeine [CODEINE] Allergy Intermediate RASH Verified 02/02/21 09:49 Sulfa (Sulfonamide Allergy Intermediate VOMITING Verified 02/02/21 09:49 Antibiotics) [SULFA (SULFONAMIDE ANTIBIOTICS)] sulfamethoxazole Allergy Intermediate VOMITING Verified 02/02/21 09:49 [From BACTRIM] trimethoprim [From BACTRIM] Allergy Intermediate Vomiting Verified 02/02/21 09:49 Osbhmev-[id number] Reductase AdvReac Severe Severe Verified 02/02/21 09:49 Inhibitor muscle [[id number]-[id number] REDUCTASE pain. INHIBITOR] Review of Systems Review of Systems: Positive chest pain Yes all other systems are reviewed and are negative PMFSH Past Medical History Attestation statement: The following information was validated with the patient. Medical History Adrenal adenoma Benitez esophagus Cervical cancer COVID-19 vaccine administered GERD (gastroesophageal reflux disease) HTN (hypertension) Hyperlipidemia IBS (irritable bowel syndrome) Snoring Vitamin D deficiency Surgical History History of cholecystectomy History of rectal polypectomy History of repair of hiatal hernia History of tonsillectomy Hx of colonoscopy Hx of hernia repair Hx of hysterectomy Family History Family History Father Lung cancer Mother Diabetes mellitus HTN (hypertension) COPD (chronic obstructive pulmonary disease) Social History Social History Alcohol intake: current Alcohol intake frequency: holidays/special occasions only Patient Tobacco Use Status: Never used Tobacco Smoked in Last 30 Days: No Second Hand Smoke Exposure: Yes Use of substances other than those prescribed or required for medical reasons: No Advance Directives: Yes Advance Directives Information Provided: Yes Advance Directives on File: No Physical Exam Vital Signs: Vital Signs: Last Vital Signs Temp 98.3 F 10/24/22 14:22 Pulse 71 10/24/22 14:22 Resp 20 10/24/22 14:22 BP 144/82 H 10/24/22 14:22 Pulse Ox 97 10/24/22 14:22 O2 Del Method 10/24/22 14:22 BMI result Body Mass Index 38.7 Appearance: Alert. Oriented X3. No acute distress. Eyes: Pupils equal, round and reactive to light. ENT: Pharynx normal. Neck: Normal inspection. Neck supple. No lymph nodes noted. No crepitus CVS: Normal heart rate and rhythm. Pulses normal. Normal S1 and S2 Respiratory: No respiratory distress. Breath sounds normal. No Wheezing. No rales Abdomen: Soft and nontender. No rigidity. No distention. good BS x4 Skin: Skin warm and dry. Normal skin color. Normal skin turgor. Extremities: No lower extremity edema. Neurovascular intact to all extremities. No Lacerations. No Rash Neuro: Oriented X 3. No motor deficit. No sensory deficit. Moving all extermities. No slurred speech Medications Administered Discontinued Medications Generic Name Dose Route Start Last Admin Trade Name Freq PRN Reason Stop Dose Admin Iohexol 100 ml 10/24/22 09:46 10/24/22 09:47 Iohexol 350 Mg/Ml 100 Ml Infus..Btl IV 10/24/22 09:47 100 ml ONCE ONE Administration Medical Decision Making Medical Decision Making [facility] Narrative: My interpretation the patient's EKG showed a sinus pattern heart rate is 75 MO QRS QTC within normal limits is no acute ST segment elevation noted. Patient has chest pain radiating to the back. Has extremely elevated blood pressure. A CTA of the chest abdomen pelvis ordered to rule out the possibility of dissection. Patient's cardiac enzymes ordered for CAD. Will monitor carefully. CTA will get us a better evaluation of patient's lung parenchyma as well. Currently in stable condition. CT angio of the chest abdomen pelvis were all negative. There is no evidence for dissection. There is no evidence for PE. There is no evidence for pneumonia. There is no evidence for acute intra-abdominal pathology. My interpretation patient's EKG showed a sinus rhythm heart rate is 75 MO QRS QT within normal limits is no acute ST segment elevation noted. Three sets of enzymes were done they were all negative. Patient's pain unlikely secondary to ACS with a history of 3 sets of enzymes be negative pain atypical for CAD. Will discharge patient home. Follow up Cardiology on an outpatient basis. Differential Diagnosis Differential Diagnoses: The differential diagnosis associated with the presentation includes Dissection, ACS, pulmonary emboli, pneumonia, reflux Admission/Observation Consideration of admission/observation: Escalation of care including admission/observation considered Lab Data [facility] Lab Attestation statement: I reviewed the patient's lab results. 10/24/22 08:46 10/24/22 08:46 Labs: Lab Results 10/24/22 10/24/22 10/24/22 Range/Units 08:46 08:46 08:46 WBC 11.3 H (4.8-10.8) X10*3/uL RBC 5.42 (4.20-5.50) X10*6/uL Hgb 15.0 (12.0-16.0) g/dl Hct 45.6 (37.0-47.0) % MCV 84.1 (80.0-98.0) fL MCH 27.7 (27.0-33.0) pg MCHC 32.9 (31.0-35.0) g/dl RDW 14.2 (11.0-16.0) % Plt Count 263 (160-400) X10*3/uL MPV 10.7 (9.4-12.3) fL Immature Gran % (Auto) 0.5 H (0.0-0.4) % Neut % (Auto) 85.6 H (45-73) % Lymph % (Auto) 8.5 L (20-40) % [place] % (Auto) 4.7 (2-11) % Eos % (Auto) 0.3 (0-4) % Baso % (Auto) 0.4 (0-2) % Lymph # (Auto) 1.0 L (1.2-4.9) X10*3/uL [place] # (Auto) 0.5 (0.1-1.2) X10*3/uL Eos # (Auto) 0.0 (0.0-0.4) X10*3/uL Baso # (Auto) 0.1 (0.0-0.2) X10*3/uL Abs Immat Gran (auto) 0.06 H (0.00-0.03) X10*3/uL Absolute Neuts (auto) 9.6 H (2.0-8.3) x10*3/uL Absolute Nucleated RBC 0.000 (0.0-0.012) X10*3/uL Nucleated RBC % (auto) 0.0 (0.0-0.2) /100WBC PT (10.0-13.1) SEC INR (0.9-1.1) APTT (26.0-36.4) SEC Sodium 139 (135-145) mmol/L Potassium 4.4 (3.3-5.1) mmol/L Chloride 101 (96-108) mmol/L Carbon Dioxide 29 (22-29) mmol/L Anion Gap 13 (12-20) BUN 15 (9-16) mg/dL Creatinine 1.02 (0.5-1.4) mg/dL Estim Creat Clear Calc 53.4 Estimated GFR 54 Random Glucose 133 H (60-115) mg/dL Calcium 9.9 (8.4-10.2) mg/dL Total Bilirubin 0.6 (0.0-1.0) mg/dL Direct Bilirubin 0.2 (0.0-0.5) mg/dL AST 23 (5-31) U/L ALT 19 (0-31) U/L Alkaline Phosphatase 63 (39-117) U/L Troponin I High Sens 4.6 (<3.5-17.0) ng/L Total Protein 7.4 (6.5-8.0) g/dL Albumin 4.2 (3.5-5.0) g/dL Lipase 107 H (8-78) U/L Influenza Type A (PCR) (Negative) Influenza Type B (PCR) (Negative) RSV RNA Qual (PCR) (Negative) SARS-CoV-2 RNA (RT-PCR) (Negative) Blood Type Antibody Screen 10/24/22 10/24/22 10/24/22 Range/Units 08:46 08:52 09:01 WBC (4.8-10.8) X10*3/uL RBC (4.20-5.50) X10*6/uL Hgb (12.0-16.0) g/dl Hct (37.0-47.0) % MCV (80.0-98.0) fL MCH (27.0-33.0) pg MCHC (31.0-35.0) g/dl RDW (11.0-16.0) % Plt Count (160-400) X10*3/uL MPV (9.4-12.3) fL Immature Gran % (Auto) (0.0-0.4) % Neut % (Auto) (45-73) % Lymph % (Auto) (20-40) % [place] % (Auto) (2-11) % Eos % (Auto) (0-4) % Baso % (Auto) (0-2) % Lymph # (Auto) (1.2-4.9) X10*3/uL [place] # (Auto) (0.1-1.2) X10*3/uL Eos # (Auto) (0.0-0.4) X10*3/uL Baso # (Auto) (0.0-0.2) X10*3/uL Abs Immat Gran (auto) (0.00-0.03) X10*3/uL Absolute Neuts (auto) (2.0-8.3) x10*3/uL Absolute Nucleated RBC (0.0-0.012) X10*3/uL Nucleated RBC % (auto) (0.0-0.2) /100WBC PT 11.9 (10.0-13.1) SEC INR 1.0 (0.9-1.1) APTT 31.5 (26.0-36.4) SEC Sodium (135-145) mmol/L Potassium (3.3-5.1) mmol/L Chloride (96-108) mmol/L Carbon Dioxide (22-29) mmol/L Anion Gap (12-20) BUN (9-16) mg/dL Creatinine (0.5-1.4) mg/dL Estim Creat Clear Calc Estimated GFR Random Glucose (60-115) mg/dL Calcium (8.4-10.2) mg/dL Total Bilirubin (0.0-1.0) mg/dL Direct Bilirubin (0.0-0.5) mg/dL AST (5-31) U/L ALT (0-31) U/L Alkaline Phosphatase (39-117) U/L Troponin I High Sens (<3.5-17.0) ng/L Total Protein (6.5-8.0) g/dL Albumin (3.5-5.0) g/dL Lipase (8-78) U/L Influenza Type A (PCR) NEGATIVE (Negative) Influenza Type B (PCR) NEGATIVE (Negative) RSV RNA Qual (PCR) NEGATIVE (Negative) SARS-CoV-2 RNA (RT-PCR) NEGATIVE (Negative) Blood Type A Positive Antibody Screen NEGATIVE 10/24/22 10/24/22 Range/Units 12:01 13:10 WBC (4.8-10.8) X10*3/uL RBC (4.20-5.50) X10*6/uL Hgb (12.0-16.0) g/dl Hct (37.0-47.0) % MCV (80.0-98.0) fL MCH (27.0-33.0) pg MCHC (31.0-35.0) g/dl RDW (11.0-16.0) % Plt Count (160-400) X10*3/uL MPV (9.4-12.3) fL Immature Gran % (Auto) (0.0-0.4) % Neut % (Auto) (45-73) % Lymph % (Auto) (20-40) % [place] % (Auto) (2-11) % Eos % (Auto) (0-4) % Baso % (Auto) (0-2) % Lymph # (Auto) (1.2-4.9) X10*3/uL [place] # (Auto) (0.1-1.2) X10*3/uL Eos # (Auto) (0.0-0.4) X10*3/uL Baso # (Auto) (0.0-0.2) X10*3/uL Abs Immat Gran (auto) (0.00-0.03) X10*3/uL Absolute Neuts (auto) (2.0-8.3) x10*3/uL Absolute Nucleated RBC (0.0-0.012) X10*3/uL Nucleated RBC % (auto) (0.0-0.2) /100WBC PT (10.0-13.1) SEC INR (0.9-1.1) APTT (26.0-36.4) SEC Sodium (135-145) mmol/L Potassium (3.3-5.1) mmol/L Chloride (96-108) mmol/L Carbon Dioxide (22-29) mmol/L Anion Gap (12-20) BUN (9-16) mg/dL Creatinine (0.5-1.4) mg/dL Estim Creat Clear Calc Estimated GFR Random Glucose (60-115) mg/dL Calcium (8.4-10.2) mg/dL Total Bilirubin (0.0-1.0) mg/dL Direct Bilirubin (0.0-0.5) mg/dL AST (5-31) U/L ALT (0-31) U/L Alkaline Phosphatase (39-117) U/L Troponin I High Sens 6.7 7.0 (<3.5-17.0) ng/L Total Protein (6.5-8.0) g/dL Albumin (3.5-5.0) g/dL Lipase (8-78) U/L Influenza Type A (PCR) (Negative) Influenza Type B (PCR) (Negative) RSV RNA Qual (PCR) (Negative) SARS-CoV-2 RNA (RT-PCR) (Negative) Blood Type Antibody Screen Independent Interpretation I performed an independent interpretation of an: EKG Interpretation: Sinus heart rate is 75 MO QRS QTC within normal limits is no acute ST segment elevation noted. Radiology Impression Discussion of test interpretation with radiology: I have reviewed the radiologist's reading. Independent Historian Clinical information obtained from an independent historian. History obtained from or confirmed by: Spouse External Record Review External record reviewed: Inpatient record Discharge Plan Discharge Clinical Impression: Chest pain Patient Disposition: Home, Self-Care Instructions: Chest Pain (ED) Prescriptions: No Action losartan 50 mg tablet 50 mg PO DAILY atenolol 50 mg tablet 25 mg PO DAILY hydrochlorothiazide 12.5 mg capsule 12.5 mg PO Q OTHER DAY cholecalciferol (vitamin D3) 25 mcg (1,000 unit) capsule 25 mcg PO DAILY omeprazole 20 mg capsule,delayed release(DR/EC) 20 mg PO DAILY meloxicam 15 mg tablet 15 mg PO DAILY 30 Days Qty: 30 0RF Referrals: Akash Márquez MD [Physician] -
[2022-10-24 09:41] LABS: Influenza A PCR NEGATIVE (Negative); Influenza B PCR NEGATIVE (Negative); Resp Syncy Virus RNA Qual PCR NEGATIVE (Negative); SARS COV2 PCR INHOUSE NEGATIVE (Negative)
[2022-10-24] MEDS: iohexoL 350 MG/ML 100 ML INFUS..BTL IV (09:47)
[2022-10-24 12:29] LABS: Troponin-I High Sensitivity 6.7 ng/L (<3.5-17.0)
[2022-10-24 12:48] LABS: Alanine Aminotransferase 19 U/L (0-31); Albumin Level 4.2 g/dL (3.5-5.0); Alkaline Phosphatase 63 U/L (39-117); Aspartate Amino Transferase 23 U/L (5-31); Bilirubin Direct 0.2 mg/dL (0.0-0.5); Bilirubin Total 0.6 mg/dL (0.0-1.0); Lipase 107 U/L (8-78); Total Protein 7.4 g/dL (6.5-8.0)
== END 2022-10-24 15:34 | disposition home or self-care (01) ==
PROVIDERS: Emergency Provider Emergency Medicine Emergency Medical Services; PCP Internal Medicine
DX: R07.89 Other chest pain (principal); R06.02 Shortness of breath; Z20.822 Contact with and (suspected) exposure to COVID-19; Z20.828 Contact with and (suspected) exposure to other viral communicable diseases; Z79.899 Other long term (current) drug therapy
CPT/HCPCS: 0241U; 36415; 71045; 71275; 74174; 80048; 80076; 83690; 84484; 85025; 85610; 85730; 86850; 86900; 86901; 93005; 99284; 99285; Q9967

== ENCOUNTER 2022-12-06 08:14 | Outpatient (REF) | payer MEDICARE, SELFPAY ==
--- NOTE | ~2022-12-06 | MM_ITS ---
EXAMINATION: MM SCREENING DIGITAL BREAST TOMOSYNTHESIS, BILATERAL CLINICAL INFORMATION: Screening. Asymptomatic. The lifetime risk of breast cancer based on the Tyrer-Cuzick Model is 2%. COMPARISON: Mammography: 11/30/2021, 11/17/2015 TECHNIQUE: Digital breast tomosynthesis is performed in both the craniocaudal and mediolateral oblique views along with computer-aided detection (CAD). Synthesized 2D images are generated from the tomosynthesis. Additional bilateral CC views are provided. FINDINGS: There are scattered areas of fibroglandular density (ACR BI-RADS breast composition Category b). There are no significant masses, abnormal calcifications, or other abnormalities. Parenchymal pattern is similar to prior studies and there is no developing density or architectural abnormality. The axilla and skin contours are unremarkable. No significant changes from prior exams. MM/MM tomosynthesis screening BI IMPRESSION: No mammographic evidence of malignancy. ASSESSMENT: BI-RADS 1: Negative RECOMMENDATION: Routine annual mammography screening. This patient's information was entered into a reminder system with a target due date for their next mammogram.
== END 2022-12-06 08:15 | disposition home or self-care (01) ==
LOC: HO.MAMMO 08:14
PROVIDERS: PCP Internal Medicine; Visit Provider Internal Medicine
DX: Z12.31 Encounter for screening mammogram for malignant neoplasm of breast (principal); I10 Essential (primary) hypertension; K21.9 Gastro-esophageal reflux disease without esophagitis; R73.03 Prediabetes; R53.83 Other fatigue
CPT/HCPCS: 36415; 77063; 77067; 80048; 82607; 83036; 84443

== ENCOUNTER 2022-12-06 09:04 | Outpatient (REF) | payer MEDICARE, SELFPAY ==
[2022-12-06 11:16] LABS: Estimated Average Glucose 120 mg/dL; Hemoglobin A1c % 5.8 %
[2022-12-06 11:30] LABS: Anion Gap 15 (12-20); Blood Urea Nitrogen 22 mg/dL (9-16); Calcium 9.7 mg/dL (8.4-10.2); Carbon Dioxide 24 mmol/L (22-29); Chloride 105 mmol/L (96-108); Estimated Glomerular Filt Rate 50; Glucose Random 99 mg/dL (60-115); Potassium 5.1 mmol/L (3.3-5.1); Sodium 139 mmol/L (135-145)
[2022-12-06 11:52] LABS: Thyroid Stimulating Hormone 1.02 uIU/mL (0.32-4.0); Vitamin B12 270 pg/mL (200-900)
== END 2022-12-06 09:05 | disposition home or self-care (01) ==
LOC: HO.10HDL 09:04
PROVIDERS: Visit Provider Internal Medicine
DX: Z13.89 Encounter for screening for other disorder (principal)
CPT/HCPCS: 36415; 80048; 82607; 83036; 84443

== ENCOUNTER → 2022-12-16 09:26 | Outpatient (BNVA) | payer MEDICARE, SELFPAY | PROVIDERS: PCP Internal Medicine; Referring Provider Internal Medicine; Visit Provider Internal Medicine | DX: R07.2 Precordial pain (principal); I10 Essential (primary) hypertension | CPT/HCPCS: 99202 ==

== ENCOUNTER → 2023-01-17 09:41 | Outpatient (REF) | payer MEDICARE, SELFPAY ==
--- NOTE | 2023-01-17 09:44 | CA_ITS ---
Transthoracic Echocardiogram Patient (Last, First, Middle): Suki Vasquez A Gender: Female Date of : 1955 Age: 67 Procedure Date: 01/17/2023 Procedure Type: Transthoracic Echocardiogram Location: OP Height: 152.4 cm Weight: 90.72 kg BSA: 1.87 m2 Heart Rate: 65 bpm BP: 140 / 84 mmHg Service Now Developer: LORI Referring MD: Akash Márquez MD Student Counselor: Todd De Leon MD Symptoms: R07.2 - Precordial pain Study Quality: Adequate ECG Rhythm: Sinus Conclusions: - 1. Normal LV ejection fraction 55-60% with impaired relaxation filling pattern 2. Normal cardiac valvular Doppler 3. Normal RV systolic pressure 4. No gross pericardial effusion Findings Left Ventricle Normal left ventricular size, thickness, and systolic function. The visually estimated ejection fraction is between 55-60%. Spectral Doppler is indicative of an impaired relaxation filling pattern. E/E prime ratio is between 8 and 15 consistent with indeterminate filling pressures. There is moderate septal asymmetric hypertrophy. Peak GLS is -14.1%, which is reduced. Right Ventricle Normal right ventricular cavity size and systolic function. Atria The left atrium is likely dilated. There is lipomatous hypertrophy of the interatrial septum. There is no evidence of interatrial shunt. The right atrium is normal in size. Aortic Valve Normal aortic valve structure and function. There is no aortic valve stenosis. There is no aortic valve regurgitation. Mitral Valve Normal mitral valve structure and function. There is trace mitral valve regurgitation. There is no mitral valve stenosis. Tricuspid Valve Normal tricuspid valve structure. There is trace tricuspid valve regurgitation. The right ventricular systolic pressure is normal. The right ventricular systolic pressure is 25 mmHg. Normal right atrial pressure. There is no evidence of pulmonary hypertension. Great Vessels All visible segments of the aorta are normal in size. The pulmonary artery was not well visualized. Venous The inferior vena cava is normal in size and collapses greater than 50% with inspiration. Pericardium/Pleural There is no evidence of pericardial effusion. Measurements 2D Linear Measurements IVSd: 1.56 0.6-0.9/0.6-1.0 cm LVIDd: 3.91 3.9-5.3/4.2-5.9 cm LVIDd Index: 2.09 2.4-3.2/2.2-3.1 cm/m2 LVIDs: 2.57 2.0-3.6 cm LVPWd: 0.74 0.7-1.1 cm LA Diam: 4.30 2.7-3.8/3.0-4.0 cm LAIDs Index: 2.30 1.5-2.3 cm/m2 LV Mass: 186.77 67-162/88-224 g LV Mass Index: 99.88 43-95/49-115 g/m2 LVOT Diam: 2.10 3.0+(-)1.3 cm 2D Systolic Function EF 4C: 60.00 >55% EF 2C: 54.30 >55% EF BiP: 57.30 >55% Mitral Valve MV Pk E: 0.69 MV PK A: 0.62 MV Decel Time: 170.00 E/A: 1.10 E'Lateral: 6.53 E'Medial: 3.85 E/E' Med: 18.00 E/E' Lat: 10.60 PHT: 50.00 MVA PHT: 4.40 Decel [place]: 4.08 Aortic Valve AoV Pk Donny: 0.96 AoV Pk Grad: 4.00 ALEXANDER: 3.07 LVOT LVOT Pk Donny: 0.80 LVOT Mn Donny: 0.54 LVOT VTI: 0.18 LVOT Pk Grad: 3.00 LVOT Mn Grad: 1.00 LVOT Diam: 2.10 LVOT Area: 3.46 Diastolic Function MV Pk E: 0.69 MV Pk A: 0.62 E/A: 1.10 E'Medial: 3.85 E/E' Med: 18.00 E' Laterial: 6.53 E/E' Lat: 10.60 Right Ventricle TAPSE (mm): 26.40 TVS' Donny: 9.68 Tricuspid Valve TR Pk Donny: 2.06 TR Pk Grad: 17.00 RA Press: 8.00 RVSP: 25.00 Great Vessels Aorta Sinus of Valsalva: 3.20 2.0-3.5 cm Ao Asc: 3.00 2.1-3.4 cm Ao Arch: 2.80 Pulmonary Valve PV Pk Donny: 0.67 Peak PV Grad: 2.00 Updated in Other Vendor System with Status of Final Todd De Leon MD electronically signed on 01/20/2023 2:48:45 PM with status of Final
== END ==
LOC: HO.CARD 09:41
PROVIDERS: PCP Internal Medicine; Visit Provider Internal Medicine
DX: R07.2 Precordial pain (principal)
CPT/HCPCS: 93306; 93356

== ENCOUNTER → 2023-02-11 14:11 | Outpatient (BNVA) | payer MEDICARE, SELFPAY | PROVIDERS: PCP Internal Medicine; Referring Provider Internal Medicine; Visit Provider Internal Medicine | DX: R07.2 Precordial pain (principal); I10 Essential (primary) hypertension | CPT/HCPCS: 99212 ==

== ENCOUNTER 2023-04-08 11:52 | Outpatient (REF) | payer MEDICARE, SELFPAY ==
[2023-04-08 13:18] LABS: MANUAL DIFF FLAG NO
[2023-04-08 13:23] LABS: Basophils Absolute Auto 0.1 X10*3/uL (0.0-0.2); Basophils Percent Auto 0.6 % (0-2); Eosinophils Absolute Auto 0.1 X10*3/uL (0.0-0.4); Eosinophils Percent Auto 1.4 % (0-4); Hematocrit 46.1 % (37.0-47.0); Hemoglobin 14.5 g/dl (12.0-16.0); Imm Gran Abs Auto 0.05 X10*3/uL (0.00-0.03); Imm Gran Pct Auto 0.6 % (0.0-0.4); Lymphocytes Absolute Auto 1.6 X10*3/uL (1.2-4.9); Lymphocytes Percent Auto 20.3 % (20-40); Mean Corpuscular HGB Conc 31.5 g/dl (31.0-35.0); Mean Corpuscular Volume 85.7 fL (80.0-98.0); Mean Platelet Volume 11.6 fL (9.4-12.3); Monocytes Absolute Auto 0.7 X10*3/uL (0.1-1.2); Monocytes Percent Auto 8.5 % (2-11); Neutrophils Absolute Auto 5.3 x10*3/uL (2.0-8.3); Neutrophils Percent Auto 68.6 % (45-73); Platelet Count 226 X10*3/uL (160-400); Red Blood Count 5.38 X10*6/uL (4.20-5.50); White Blood Count 7.8 X10*3/uL (4.8-10.8)
[2023-04-08 13:43] LABS: Alanine Aminotransferase 22 U/L (0-31); Albumin Level 4.1 g/dL (3.5-5.0); Alkaline Phosphatase 57 U/L (39-117); Anion Gap 12 (12-20); Aspartate Amino Transferase 22 U/L (5-31); Bilirubin Total 0.4 mg/dL (0.0-1.0); Blood Urea Nitrogen 17 mg/dL (9-16); Carbon Dioxide 28 mmol/L (22-29); Chloride 104 mmol/L (96-108); Estimated Glomerular Filt Rate 56; Glucose Random 97 mg/dL (60-115); Potassium 5.4 mmol/L (3.3-5.1); Sodium 139 mmol/L (135-145); Total Protein 7.8 g/dL (6.5-8.0)
[2023-04-08 13:59] LABS: Free T4 (Free Thyroxine) 0.89 ng/dL (0.71-1.85); Thyroid Stimulating Hormone 1.39 uIU/mL (0.32-4.0)
[2023-04-08 14:02] LABS: Vitamin B12 264 pg/mL (200-900)
== END 2023-04-08 11:53 | disposition home or self-care (01) ==
LOC: HO.10HDL 11:52
PROVIDERS: Visit Provider Internal Medicine
DX: I10 Essential (primary) hypertension (principal); R53.83 Other fatigue; K21.9 Gastro-esophageal reflux disease without esophagitis
CPT/HCPCS: 36415; 80053; 82607; 84439; 84443; 85025

== ENCOUNTER 2023-05-01 13:03 | Outpatient (REF) | payer MEDICARE, SELFPAY ==
[2023-05-01 13:58] LABS: Anion Gap 13 (12-20); Blood Urea Nitrogen 18 mg/dL (9-16); Carbon Dioxide 25 mmol/L (22-29); Chloride 104 mmol/L (96-108); Estimated Glomerular Filt Rate 55; Glucose Random 128 mg/dL (60-115); Sodium 138 mmol/L (135-145)
[2023-05-05 13:59] LABS: Calcium (PTHI) 9.7 mg/dL (8.6-10.4); PTHI 112 pg/mL (16-77)
== END 2023-05-01 13:04 | disposition home or self-care (01) ==
LOC: HO.LAB 13:03
PROVIDERS: PCP Internal Medicine; Visit Provider Internal Medicine
DX: I10 Essential (primary) hypertension (principal); E83.52 Hypercalcemia
CPT/HCPCS: 36415; 80048; 83970

== ENCOUNTER 2023-06-03 07:50 | Day surgery (SDC) | payer MEDICARE, SELFPAY ==
--- NOTE | 2023-06-02 08:49 | HO.ANESPROP2 ---
Documented by User: Ira Garcia NP 06/02/23 08:51 HPI - Anesthesia Eval Consult details Narrative: 68yo F for Colonoscopy PMFSH Active Problems Active Problems: All Active Problems (Updated 12/16/22 @ 10:44 by Akash Márquez MD) HTN (hypertension) (Acute) Precordial chest pain (Acute) Arthritis of right acromioclavicular joint (Acute) Snoring (Acute) Vitamin D deficiency (Acute) Adrenal adenoma (Acute) Past Medical History Medical History Snoring COVID-19 vaccine administered Hyperlipidemia Cervical cancer IBS (irritable bowel syndrome) HTN (hypertension) GERD (gastroesophageal reflux disease) Benitez esophagus Vitamin D deficiency Adrenal adenoma Family History Family History Father Lung cancer Mother Diabetes mellitus HTN (hypertension) COPD (chronic obstructive pulmonary disease) Surgical History Surgical History History of cholecystectomy History of rectal polypectomy History of repair of hiatal hernia History of tonsillectomy Hx of colonoscopy Hx of hernia repair Hx of hysterectomy Social History Social History Alcohol intake: current Alcohol intake frequency: holidays/special occasions only Patient Tobacco Use Status: Never used Tobacco Second Hand Smoke Exposure: Yes Are you DNR?: No Advance Directives: No Advance Directives Information Provided: Yes Nutrition Risks: No Nutritional Risk Meds Allergies Allergy/AdvReac Type Severity Reaction Status Date / Time nitroglycerin [NITROGLYCERIN] Allergy Severe SEVERE Verified 06/03/23 08:03 HYPOTENSION codeine [CODEINE] Allergy Intermediate RASH Verified 06/03/23 08:03 Sulfa (Sulfonamide Allergy Intermediate VOMITING Verified 06/03/23 08:03 Antibiotics) [SULFA (SULFONAMIDE ANTIBIOTICS)] sulfamethoxazole Allergy Intermediate VOMITING Verified 06/03/23 08:03 [From BACTRIM] trimethoprim [From BACTRIM] Allergy Intermediate Vomiting Verified 06/03/23 08:03 Kpuayhc-DJC-EdW Reductase AdvReac Severe Severe Verified 06/03/23 08:03 Inhibitor muscle [[id number]-[id number]-DGR REDUCTASE pain. INHIBITOR] Home Medications Medication Instructions Recorded Confirmed Last Taken Type cholecalciferol (vitamin D3) 25 25 mcg PO DAILY 01/31/21 06/03/23 Unknown History mcg (1,000 unit) capsule hydrochlorothiazide 12.5 mg capsule 12.5 mg PO Q OTHER DAY 01/31/21 06/03/23 Unknown History omeprazole 20 mg capsule,delayed 20 mg PO DAILY 07/23/22 06/03/23 06/03/23 History release atenolol 50 mg tablet 50 mg PO DAILY 12/16/22 06/03/23 06/03/23 History losartan 50 mg tablet 50 mg PO BID 02/11/23 06/03/23 06/03/23 History Exam Exam Date and Time: June 02, 2023 0849 Pertinent Lab Results Pertinent Lab Results: Laboratory Tests 04/08/23 05/01/23 12:00 13:21 WBC 7.8 Hgb 14.5 Hct 46.1 Plt Count 226 Sodium 138 Potassium 4.0 D Chloride 104 Carbon Dioxide 25 BUN 18 H Creatinine 1.01 Narrative Narrative: EKG 10/2022 Vent. Rate : 075 BPM Atrial Rate : 075 BPM P-R Int : 226 ms QRS Dur : 082 ms QT Int : 366 ms P-R-T Axes : 076 -14 023 degrees QTc Int : 408 ms Sinus rhythm with 1st degree A-V block Cannot rule out Anterior infarct , age undetermined Abnormal ECG When compared with ECG of 11-AUG-2020 09:47, No significant change was found ECHO 01/2023 Conclusions: - 1. Normal LV ejection fraction 55-60% with impaired relaxation filling pattern 2. Normal cardiac valvular Doppler 3. Normal RV systolic pressure 4. No gross pericardial effusion Assessment and Plan Assessment Anesthesia Assessment: Chart Reviewed Documented by User: Paolo Doss MD 06/03/23 09:26 [facility] Past Medical History Medical History Snoring COVID-19 vaccine administered Hyperlipidemia Cervical cancer IBS (irritable bowel syndrome) HTN (hypertension) GERD (gastroesophageal reflux disease) Benitez esophagus Vitamin D deficiency Adrenal adenoma Family History Family History Father Lung cancer Mother Diabetes mellitus HTN (hypertension) COPD (chronic obstructive pulmonary disease) Family history of problems with anesthesia: No Surgical History Surgical History History of cholecystectomy History of rectal polypectomy History of repair of hiatal hernia History of tonsillectomy Hx of colonoscopy Hx of hernia repair Hx of hysterectomy History of Problems with Anesthesia: No Social History Social History Alcohol intake: current Alcohol intake frequency: holidays/special occasions only Patient Tobacco Use Status: Never used Tobacco Second Hand Smoke Exposure: Yes Are you DNR?: No Advance Directives: No Advance Directives Information Provided: Yes Nutrition Risks: No Nutritional Risk Meds Allergies Allergy/AdvReac Type Severity Reaction Status Date / Time nitroglycerin [NITROGLYCERIN] Allergy Severe SEVERE Verified 06/03/23 08:03 HYPOTENSION codeine [CODEINE] Allergy Intermediate RASH Verified 06/03/23 08:03 Sulfa (Sulfonamide Allergy Intermediate VOMITING Verified 06/03/23 08:03 Antibiotics) [SULFA (SULFONAMIDE ANTIBIOTICS)] sulfamethoxazole Allergy Intermediate VOMITING Verified 06/03/23 08:03 [From BACTRIM] trimethoprim [From BACTRIM] Allergy Intermediate Vomiting Verified 06/03/23 08:03 Kpdcycj-MYF-FeH Reductase AdvReac Severe Severe Verified 06/03/23 08:03 Inhibitor muscle [[id number] REDUCTASE pain. INHIBITOR] Home Medications Medication Instructions Recorded Confirmed Last Taken Type cholecalciferol (vitamin D3) 25 25 mcg PO DAILY 01/31/21 06/03/23 Unknown History mcg (1,000 unit) capsule hydrochlorothiazide 12.5 mg capsule 12.5 mg PO Q OTHER DAY 01/31/21 06/03/23 Unknown History omeprazole 20 mg capsule,delayed 20 mg PO DAILY 07/23/22 06/03/23 06/03/23 History release atenolol 50 mg tablet 50 mg PO DAILY 12/16/22 06/03/23 06/03/23 History losartan 50 mg tablet 50 mg PO BID 02/11/23 06/03/23 06/03/23 History Exam Airway Mallampati Class: II TM Dist: <=3cm Neck ROM: Full Denture: Upper and Lower Heart: ok. see above. cardiac cath. planned. Risks disc w patient. Lungs: ok. Assessment and Plan Assessment Anesthesia Assessment: Anesthesia Plan Discussed Final Anesthetic Review Family History of Problems with Anesthesia: No History of Problems with Anesthesia: No NPO: Yes ASA Class: III Final Preanesthetic Review: No Changes in Pt Med Stat, Meds/Allgs Chart Reviewed, Consent Obtained/Reviewed and Anes Risks/Benef Reviewed (d/w patient at length) Patient Risk: High Procedure Risk: Low Anesthetic Plan Anesthetic Plan: MAC: and Agree w/ Assess. and Plan Disposition: Standard PACU
[2023-06-03 06:05] VITALS: BMI 39.1
[2023-06-03 08:00] VITALS: BP 207/97; PULSE 78; RESP 18; TEMP 36.6; O2SAT 95
[2023-06-03] MEDS: Lactated Ringers 1,000 ML 100 ML IVCONT (08:08)
[2023-06-03 08:38] VITALS: BP 174/88
--- NOTE | 2023-06-03 09:00 | P.HPSUR_ITS ---
Pre-Procedural Eval Section A Date of Service: 06/03/23 Section B Chief Complaint: Encounter for screening for malignant neoplasm of Details of Present Illness: see h&P Relevant Family History (Specify if Yes): No Relevant Social History: None Present Medications: see Short Stay [facility] assessment Medical History: Significant History (cardiac evaluation per Dr Márquez) Allergies: Allergies Allergy/AdvReac Type Severity Reaction Status Date / Time nitroglycerin [NITROGLYCERIN] Allergy Severe SEVERE Verified 06/03/23 08:03 HYPOTENSION codeine [CODEINE] Allergy Intermediate RASH Verified 06/03/23 08:03 Sulfa (Sulfonamide Allergy Intermediate VOMITING Verified 06/03/23 08:03 Antibiotics) [SULFA (SULFONAMIDE ANTIBIOTICS)] sulfamethoxazole Allergy Intermediate VOMITING Verified 06/03/23 08:03 [From BACTRIM] trimethoprim [From BACTRIM] Allergy Intermediate Vomiting Verified 06/03/23 08:03 Fyfxxwg-QQY-GaI Reductase AdvReac Severe Severe Verified 06/03/23 08:03 Inhibitor muscle [EZCRHBF-MRE-ODS REDUCTASE pain. INHIBITOR] Review of Systems Sugical H&P ROS: Negative: Constitution, Cardiovascular, Respiratory, Neurological, Psychiatric, Hem-Onc, Allergic/Immunologic, Gastrointestinal, Gen itourinary, Musculoskeletal, Integumentary, Endocrine and Eyes/Ears/Nose/Throat Exam Surgical H&P Exam: Normal: HEENT, Normal: Heart, Normal: Lungs, Normal: Extremities, Normal: Abdomen, Normal: Skin and Normal: Neurological Plan Diagnosis/Plan: Unchanged I have reviewed the history and physical and performed a pertinent physical examination on my patient. No changes have occurred unless specified. Time Spent With Patient Time: Total time managing care of this patient today ____ minutes.
--- NOTE | 2023-06-03 09:05 | PC.NURSE ---
Dr. Doss aware of patient BP results and that patient stated that she was scheduled to have a cardiac catheterization last week, but patient cancelled it until July. Dr. Doss assessing patient at this time.
--- NOTE | 2023-06-03 09:16 | PC.NURSE ---
dr. briscoe assessed patient. okay to proceed. see previous note.
--- NOTE | 2023-06-03 09:57 | PM.OP ---
Brief Operative Note Date of Service: 06/03/23 Pre-op diagnosis: screening Post-op diagnosis: same Surgeon: Noel Robert MD Anesthesia: MAC Was an Deputy Chief Counsel used for this Procedure?: No Estimated blood loss (mL): 2 Pathology: other Condition: stable Disposition: PACU
[2023-06-03 09:58] VITALS: BP 116/68; PULSE 67; RESP 18; TEMP 36.3; O2SAT 94
[2023-06-03 10:13] VITALS: BP 112/64; PULSE 63; RESP 18; TEMP 36.3; O2SAT 97
--- NOTE | 2023-06-03 11:28 | OP_ITS ---
DATE OF SERVICE: 06/03/2023 SURGEON: Noel Robert MD INDICATIONS: Colon cancer screening. PREOPERATIVE DIAGNOSIS: POSTOPERATIVE DIAGNOSIS: PROCEDURE PERFORMED: Colonoscopy to the terminal ileum with snare polypectomy and biopsy. ESTIMATED BLOOD LOSS: COMPLICATIONS: ANESTHESIA: Monitored anesthesia care. ASSISTANTS: SPECIMENS: DESCRIPTION OF PROCEDURE: A history and physical were performed. The risks and benefits of the procedure were explained to the patient. Informed consent was obtained. The patient was placed in the left lateral decubitus position. A digital rectal exam was performed and was found to be normal. The Olympus pediatric video colonoscope was introduced into the rectum and advanced to the cecum. The cecum was identified by transillumination, palpation, and identification of ileocecal valve. Examination was performed, and the scope was removed. She tolerated the procedure well and was taken to the recovery in stable condition. FINDINGS: The terminal ileum was examined and appeared normal. The visualized colonic mucosa was normal. The quality of the prep was good. Multiple polyps were identified and removed with a combination of snare polypectomy and biopsy. These were all less than 10 mm. Two were located at 60 cm, a third was located at 20 cm. There was moderate diverticulosis involving the sigmoid. Retroflexed examination showed moderate-sized internal hemorrhoids. IMPRESSION: Colon polyps. RECOMMENDATION: Follow up the biopsy results. MD PATRICIA Erazo/LUDIN / [phone]
== END 2023-06-03 10:50 | disposition home or self-care (01) ==
PROVIDERS: PCP Internal Medicine; Visit Provider Internal Medicine Gastroenterology
PROC: 0DJD8ZZ Inspection of Lower Intestinal Tract, Via Natural or Artificial Opening Endoscopic (ICD-10-PCS; CPT 45378; principal; 2023-06-03 08:50)
DX: Z12.11 Encounter for screening for malignant neoplasm of colon (principal); Z83.719 Family history of colon polyps, unspecified; D12.4 Benign neoplasm of descending colon; D12.5 Benign neoplasm of sigmoid colon; K57.30 Diverticulosis of large intestine without perforation or abscess without bleeding; K64.8 Other hemorrhoids; K58.9 Irritable bowel syndrome, unspecified; K22.70 Barrett's esophagus without dysplasia; I10 Essential (primary) hypertension; E78.5 Hyperlipidemia, unspecified; Z85.41 Personal history of malignant neoplasm of cervix uteri; Z90.710 Acquired absence of both cervix and uterus; Z90.49 Acquired absence of other specified parts of digestive tract; Z98.890 Other specified postprocedural states; Z79.899 Other long term (current) drug therapy; Z88.5 Allergy status to narcotic agent; Z88.1 Allergy status to other antibiotic agents; Z88.8 Allergy status to other drugs, medicaments and biological substances
CPT/HCPCS: 45385; 45380; 88305; 88341; 88342

== ENCOUNTER 2023-07-01 08:26 | Outpatient (REF) | payer MEDICARE, SELFPAY ==
[2023-07-01 08:56] LABS: MANUAL DIFF FLAG NO
[2023-07-01 09:07] LABS: Basophils Absolute Auto 0.1 X10*3/uL (0.0-0.2); Basophils Percent Auto 0.9 % (0-2); Eosinophils Absolute Auto 0.2 X10*3/uL (0.0-0.4); Eosinophils Percent Auto 3.3 % (0-4); Hemoglobin 14.5 g/dl (12.0-16.0); Imm Gran Abs Auto 0.02 X10*3/uL (0.00-0.03); Imm Gran Pct Auto 0.3 % (0.0-0.4); Lymphocytes Absolute Auto 1.7 X10*3/uL (1.2-4.9); Lymphocytes Percent Auto 26.2 % (20-40); Mean Corpuscular HGB Conc 32.2 g/dl (31.0-35.0); Mean Corpuscular Hemoglobin 27.2 pg (27.0-33.0); Mean Corpuscular Volume 84.4 fL (80.0-98.0); Mean Platelet Volume 10.8 fL (9.4-12.3); Monocytes Absolute Auto 0.5 X10*3/uL (0.1-1.2); Monocytes Percent Auto 7.5 % (2-11); Neutrophils Absolute Auto 3.9 x10*3/uL (2.0-8.3); Neutrophils Percent Auto 61.8 % (45-73); Platelet Count 227 X10*3/uL (160-400); Red Blood Count 5.33 X10*6/uL (4.20-5.50); Red Cell Distribution Width 13.8 % (11.0-16.0); White Blood Count 6.4 X10*3/uL (4.8-10.8)
[2023-07-01 09:44] LABS: Alanine Aminotransferase 17 U/L (0-31); Albumin Level 3.9 g/dL (3.5-5.0); Alkaline Phosphatase 53 U/L (39-117); Anion Gap 13 (12-20); Aspartate Amino Transferase 20 U/L (5-31); Bilirubin Total 0.4 mg/dL (0.0-1.0); Blood Urea Nitrogen 20 mg/dL (9-16); Carbon Dioxide 28 mmol/L (22-29); Chloride 107 mmol/L (96-108); Cholesterol 239 mg/dL (<200); Estimated Glomerular Filt Rate 52; Glucose Fasting 106 mg/dL (60-99); HDL Cholesterol 46 mg/dL (>40); LDL Cholesterol Calculated 151 mg/dL (<100); Potassium 4.8 mmol/L (3.3-5.1); Sodium 143 mmol/L (135-145); Total Protein 7.5 g/dL (6.5-8.0); Triglycerides 214 mg/dL (<150)
[2023-07-01 10:01] LABS: Thyroid Stimulating Hormone 1.07 uIU/mL (0.32-4.0); Vitamin B12 241 pg/mL (200-900)
== END 2023-07-01 08:27 | disposition home or self-care (01) ==
LOC: HO.LAB 08:26
PROVIDERS: PCP Internal Medicine; Visit Provider Internal Medicine
DX: I12.9 Hypertensive chronic kidney disease with stage 1 through stage 4 chronic kidney disease, or unspecified chronic kidney disease (principal); N18.9 Chronic kidney disease, unspecified; K21.9 Gastro-esophageal reflux disease without esophagitis; E78.00 Pure hypercholesterolemia, unspecified; R53.83 Other fatigue
CPT/HCPCS: 36415; 80053; 80061; 82607; 84443; 85025

== ENCOUNTER 2023-09-16 10:38 | Outpatient (REF) | payer MEDICARE, SELFPAY ==
[2023-09-16 11:44] LABS: Anion Gap 12 (12-20); Blood Urea Nitrogen 19 mg/dL (9-16); Carbon Dioxide 27 mmol/L (22-29); Chloride 104 mmol/L (96-108); Estimated Glomerular Filt Rate 50; Glucose Random 101 mg/dL (60-115); Potassium 4.5 mmol/L (3.3-5.1); Sodium 138 mmol/L (135-145)
== END 2023-09-16 10:39 | disposition home or self-care (01) ==
LOC: HO.LAB 10:38
PROVIDERS: PCP Internal Medicine; Visit Provider Internal Medicine
DX: E78.5 Hyperlipidemia, unspecified (principal); I10 Essential (primary) hypertension
CPT/HCPCS: 36415; 80048

== ENCOUNTER 2023-10-07 11:11 | Outpatient (AMB) | payer MEDICARE, SELFPAY ==
[2023-10-07 11:22] VITALS: BP 174/98; PULSE 70; BMI 39.3
--- NOTE | 2023-10-07 11:22 | A.OFFVIS_ITS ---
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 Required: No Accompanied by: Self / Same As Patient Allergies nitroglycerin [NITROGLYCERIN] Allergy (Severe, Verified 10/07/23 11:24) SEVERE HYPOTENSION codeine [CODEINE] Allergy (Intermediate, Verified 10/07/23 11:24) RASH Sulfa (Sulfonamide Antibiotics) [SULFA (SULFONAMIDE ANTIBIOTICS)] Allergy (Intermediate, Verified 10/07/23 11:24) VOMITING sulfamethoxazole [From BACTRIM] Allergy (Intermediate, Verified 10/07/23 11:24) VOMITING trimethoprim [From BACTRIM] Allergy (Intermediate, Verified 10/07/23 11:24) Vomiting Bltawgf-KNS-JlI Reductase Inhibitor [GPGKGKS-GMM-LDK REDUCTASE INHIBITOR] Adverse Reaction (Severe, Verified 10/07/23 11:24) Severe muscle pain. Medication List - Last Reconciled 10/07/23 by Akash Márquez MD amlodipine 5 mg PO DAILY aspirin (Adult Aspirin Regimen) 81 mg PO DAILY atenolol 50 mg PO DAILY cholecalciferol (vitamin D3) 25 mcg PO DAILY evolocumab (Repatha SureClick) 140 mg subcut Q2W hydrochlorothiazide 12.5 mg PO Q OTHER DAY losartan 50 mg PO BID omeprazole 20 mg PO DAILY HPI HPI Comments History of Present Illness Details Suki returns for follow-up. Last year, she was seen in consultation regarding chest pain. She has had chest pains off and on thought to be from Benitez's esophagus. Then had an episode of chest pain when she was lying down at nighttime and that led to ER visit. No evidence of ACS. Otherwise, she seems to have uncontrolled hypertension. No known coronary disease or myocardial infarction. Coronary CTA has been completed and she is here to follow-up. Since last visit, she states she has not had any further chest pains. [facility] Medical History (Updated 10/07/23 @ 11:25 by Akash Márquez MD) Atherosclerotic cardiovascular disease Snoring COVID-19 vaccine administered Hyperlipidemia Cervical cancer IBS (irritable bowel syndrome) HTN (hypertension) GERD (gastroesophageal reflux disease) Benitez esophagus Vitamin D deficiency Adrenal adenoma Surgical History History of repair of hiatal hernia History of rectal polypectomy History of cholecystectomy Hx of hysterectomy History of tonsillectomy Hx of colonoscopy Hx of hernia repair Family History Father Lung cancer Mother Diabetes mellitus HTN (hypertension) COPD (chronic obstructive pulmonary disease) Social History Alcohol intake: current Alcohol intake frequency: holidays/special occasions only Patient Tobacco Use Status: Never used Tobacco Second Hand Smoke Exposure: Yes Review of Systems Const Denies weakness ENT Denies dizziness Card Denies chest pain, Denies chest pain with activity, Denies syncope, Denies rapid heart rate, Denies pedal edema, Denies edema, Denies leg edema, Denies lightheadedness, Denies palpitations, Denies dyspnea, Denies dyspnea on exertion and Denies orthopnea Resp Denies cough, Denies dyspnea and Denies dyspnea on exertion GI Denies hematochezia and Denies change in stool character Musc Denies abnormal gait, Denies muscle cramps, Denies muscle weakness, Denies numbness, Denies radiating pain into limb and Denies tingling Neuro Denies abnormal gait, Denies dizziness, Denies syncope, Denies numbness, Denies tingling and Denies weakness Endo Denies palpitations Physical Exam Vital Signs: Last Vital Signs Pulse 70 10/07/23 11:22 BP 174/98 H 10/07/23 11:22 BMI result Body Mass Index 39.3 Const General: comfortable and no acute distress Orientation/consciousness: patient oriented x3 HEENT Other: Unremarkable Head: Yes normal to inspection Neck Neck: Yes normal visual inspection Chest Chest palpation & inspection: normal inspection of the chest Resp Auscultation: clear to auscultation bilaterally Cardio Palpation: normal PMI Heart sounds: S1 normal heart sound present, S2 normal heart sound present, no gallops, no murmurs and no rubs GI Palpation (GI): Soft to palpation Back/Spine/Pelvis Other: unremarkable Skin General skin exam: no rashes or lesions noted Neuro General: patient oriented x3 Extrem General: Yes normal to inspection Psych Mental Status: mental status grossly normal Office Procedures EKG Details: EKG with sinus rhythm at 70/Min; ME prolongation 240 millisecond; [place]. [id number], Complete Assessment & Plan Assessment & Plan (1) Atherosclerotic cardiovascular disease: Code(s): I25.10 - Atherosclerotic heart disease of paimiut coronary artery without angina pectoris Plan: Coronary CTA reviewed. Moderate to severe calcification the proximal LAD, probable less than 70% stenosis. First diagonal, 50% stenosis. Mid LAD, about 40% stenosis. Mid circumflex with about 50-70% stenosis. Mild RCA stenosis. FFR significant in the mid LAD, at 0.69. She has had some chest pain in the past but nothing recently. We discussed about a diagnostic catheterization but she would rather hold off as she has severe right shoulder pain and may not be able to lie down and tolerate the procedure. We will optimize medications in the interim. Continue low-dose aspirin. Continue beta-blockers. Statin intolerant and hence try Repatha. She is willing. (2) HTN (hypertension): Code(s): I10 - Essential (primary) hypertension Plan: Blood pressure running high but she states it is because of the extreme amount of pain she is in. Any case, still advisable to adjust meds. Add amlodipine 5 mg daily. Advised to call us back in a couple of weeks and may have make further changes. Medications: New amlodipine 5 mg PO DAILY 90 tabs 3RF evolocumab (Repatha SureClick) 140 mg subcut Q2W 2 mL 5RF Coding Level of Care Code Est Pt Level 4 (56869) Diagnoses Atherosclerotic cardiovascular disease I25.10 HTN (hypertension) I10 CPT Codes EKG - CPT: 12031-[id number], Complete ([id number])
== END 2023-10-07 12:41 | disposition home or self-care (01) ==
PROVIDERS: PCP Internal Medicine; Visit Provider Internal Medicine
DX: I25.10 Atherosclerotic heart disease of native coronary artery without angina pectoris (principal); I10 Essential (primary) hypertension
CPT/HCPCS: 93010; 99214

== ENCOUNTER → 2023-10-07 11:11 | Outpatient (BNVA) | payer MEDICARE, SELFPAY | PROVIDERS: PCP Internal Medicine; Visit Provider Internal Medicine | DX: I25.10 Atherosclerotic heart disease of native coronary artery without angina pectoris (principal); I10 Essential (primary) hypertension | CPT/HCPCS: 93005; 99212 ==

== ENCOUNTER 2023-12-12 07:53 | Outpatient (REF) | payer MEDICARE, SELFPAY ==
--- NOTE | ~2023-12-12 | MM_ITS ---
EXAMINATION: MM SCREENING DIGITAL BREAST TOMOSYNTHESIS, BILATERAL CLINICAL INFORMATION: Screening. Asymptomatic. COMPARISON: Mammography: This study is compared with prior exams dating back to 2016. TECHNIQUE: Digital breast tomosynthesis is performed in both the craniocaudal and mediolateral oblique views along with computer-aided detection (CAD). Synthesized 2D images are generated from the tomosynthesis. FINDINGS: The breasts are almost entirely fatty (ACR BI-RADS breast composition Category a). There are no significant masses, abnormal calcifications, or other abnormalities. MM/MM tomosynthesis screening BI IMPRESSION: No mammographic evidence of malignancy. ASSESSMENT: BI-RADS BI-RADS 1 - Negative RECOMMENDATION: Routine annual mammography screening. 1 year F/U This examination should not preclude the clinical evaluation of a suspicious palpable abnormality. This patient's information was entered into a reminder system with a target due date for their next mammogram.
--- NOTE | ~2023-12-12 | MM_ITS ---
EXAMINATION: BONE DENSITOMETRY CLINICAL INDICATION: Menopause. COMPARISON: Previous BD dated 09/17/2013 and baseline BD dated 06/21/2005. TECHNIQUE: Using a [employer] DXA System (software version: 13.1) manufactured by [employer], dual-energy x-ray absorptiometry was performed of the lumbar spine and left hip. The images are of good technical quality. Summary results are attached. FINDINGS: LEFT FEMUR, NECK: Current: BMD 0.586 g/cm2, Z-score -2.2, T-score -3.3, osteoporosis. Prior: BMD 0.852 g/cm2. Baseline: BMD 0.898 g/cm2. LEFT FEMUR, TOTAL: Current: BMD 0.700 g/cm2, Z-score -1.7, T-score -2.4, osteopenia, 28.3% decrease from previous, 34.6% decrease from baseline (<5% change is not significant). Prior: BMD 0.976 g/cm2. Baseline: BMD 1.071 g/cm2. AP SPINE L1-L3 (excluding L4): The data of L1-L4 has been changed to exclude the L4 vertebral body, because degenerative sclerosis at this level may cause overestimation of lumbar spine density. Current: BMD 1.118 g/cm2, Z-score 0.3, T-score -0.4, normal, 5.6% increase from previous, 10.4% increase from baseline (<5% change is not significant). Prior: BMD 1.059 g/cm2. Baseline: BMD 1.013 g/cm2. IDENTIFIED RISK FACTORS: Early menopause, hysterectomy, bilateral oophorectomy, low calcium intake, secondary osteoporosis, thiazide. HISTORY OF FRACTURE: None listed. MEDICATIONS: Multivitamin, vitamin D. MM/XR DEXA axial skeleton IMPRESSION: 1. DIAGNOSIS: Osteoporosis based on the lowest T-score value of -3.3 in the femoral neck applying World Health Organization criteria. 2. 10-YEAR FRACTURE RISK PREDICTION, FRAX: According to the guidelines, FRAX calculation should only be performed on patients in the osteopenia bone density category. Therefore, FRAX was not performed on this patient. 3. Treatment Recommendations: NOF guidelines recommend consideration for treatment in postmenopausal women and men age 50 and older presenting with the following: -A hip or vertebral (clinical or morphometric) fracture. -T-score less than or equal to -2.5 at the femoral neck or spine after appropriate evaluation to exclude secondary causes. -Low bone mass at the hip or spine and a 10-year fracture probability by FRAX of greater than or equal to 3% for hip fracture or greater than or equal to 20% for major osteoporotic fracture based on the [place] adapted WHO algorithm. 4. Other Recommendations: All treatment decisions require clinical judgment and consideration of individual patient factors, including patient preferences, comorbidities, previous drug use, risk factors not captured in the FRAX model (e.g. frailty, falls, vitamin D deficiency, increased bone turnover, interval significant decline in bone density) and possible under or overestimation of fracture risk by FRAX. Additional medical evaluation for secondary cause of low bone mineral density may be appropriate. FUTURE SCAN RECOMMENDATION: People with diagnosed cases of osteoporosis or at high risk for fracture should have regular bone mineral density tests. For patients eligible for Medicare, routine testing is allowed once every 2 years. The testing frequency can be increased to one year for patients who have rapidly progressing disease, those who are receiving or discontinuing medical therapy to restore bone mass, or have additional risk factors.
== END 2023-12-12 07:54 | disposition home or self-care (01) ==
LOC: HO.MAMMO 07:53
PROVIDERS: PCP Internal Medicine; Visit Provider Internal Medicine
DX: Z12.31 Encounter for screening mammogram for malignant neoplasm of breast (principal); Z13.820 Encounter for screening for osteoporosis; Z78.0 Asymptomatic menopausal state
CPT/HCPCS: 77063; 77067; 77080

== ENCOUNTER → 2023-12-12 08:15 | Outpatient (BNV) | payer MEDICARE, SELFPAY | PROVIDERS: PCP Internal Medicine; Visit Provider Radiology Diagnostic Radiology | DX: Z12.31 Encounter for screening mammogram for malignant neoplasm of breast (principal) | CPT/HCPCS: 77063; 77067 ==

== ENCOUNTER 2023-12-29 09:36 | Outpatient (REF) | payer MEDICARE, SELFPAY ==
--- NOTE | ~2023-12-29 | XR_ITS ---
EXAMINATION: XR SHOULDER, RIGHT CLINICAL INFORMATION: Pain in unspecified shoulder. COMPARISON: 06/21/2022 TECHNIQUE: Four views of the right shoulder. FINDINGS: Moderate degenerative changes in the acromioclavicular joint with joint space narrowing and hypertrophic change. Glenohumeral alignment preserved. Narrowing of the subacromial space. XR/XR shoulder RT min 2V IMPRESSION: Progression of degenerative changes with narrowing of the subacromial space. Moderate degenerative changes in the acromioclavicular joint.
== END 2023-12-29 09:37 | disposition home or self-care (01) ==
LOC: HO.HOSX 09:36
PROVIDERS: Visit Provider Physician Assistant
DX: M19.011 Primary osteoarthritis, right shoulder (principal)
CPT/HCPCS: 73030; 99212

== ENCOUNTER 2023-12-29 09:48 | Outpatient (AMB) | payer MEDICARE, SELFPAY ==
--- NOTE | 2023-12-29 09:49 | A.OFFVIS_ITS ---
Vital Signs 12/29/23 09:55 Height 5 ft Weight 201 lb BMI 39.3 Handedness Right Intake Visit Reasons: OV-Right shoulder OA Intake Note: Suki is a 67 year old right hand dominant female who presents today for a follow up of her right shoulder OA. Patient reports she had a MRI done at [facility]. She states that her pain is a 5/10 on the pain scale. Patient finds mild relief with taking Tylenol. Pain is on top of the should and moves to the back of her shoulder. She expresses that her pain is worse with any movement. Allergies nitroglycerin [NITROGLYCERIN] Allergy (Severe, Verified 12/29/23 09:50) SEVERE HYPOTENSION codeine [CODEINE] Allergy (Intermediate, Verified 12/29/23 09:50) RASH Sulfa (Sulfonamide Antibiotics) [SULFA (SULFONAMIDE ANTIBIOTICS)] Allergy (Intermediate, Verified 12/29/23 09:50) VOMITING sulfamethoxazole [From BACTRIM] Allergy (Intermediate, Verified 12/29/23 09:50) VOMITING trimethoprim [From BACTRIM] Allergy (Intermediate, Verified 12/29/23 09:50) Vomiting Zzrbhpa-VOD-AtO Reductase Inhibitor [MVRPSIG-AZU-TGB REDUCTASE INHIBITOR] Adverse Reaction (Severe, Verified 12/29/23 09:50) Severe muscle pain. HPI HPI OV-Right shoulder OA: Details: 68-year-old right hand dominant female who presents in the office today for a follow up of right shoulder pain. I last saw the patient in the office on 07/23/2022 when the patient was offered a cortisone injection and PT but deferred at the time. She was given a prescription for Meloxicam 15 mg PO daily for 30 days. While in the office today the patient reports having an MRI done at [facility]. She claims her pain is a 5/10 in the office. She finds mild relief with Tylenol. Reports her pain is on the top of her shoulder and radiates to the back of her shoulder. She states the pain increases with movement. [facility] Medical History (Updated 10/07/23 @ 11:25 by Akash Márquez MD) Atherosclerotic cardiovascular disease Snoring COVID-19 vaccine administered Hyperlipidemia Cervical cancer IBS (irritable bowel syndrome) HTN (hypertension) GERD (gastroesophageal reflux disease) Benitez esophagus Vitamin D deficiency Adrenal adenoma Surgical History History of repair of hiatal hernia History of rectal polypectomy History of cholecystectomy Hx of hysterectomy History of tonsillectomy Hx of colonoscopy Hx of hernia repair Family History Father Lung cancer Mother Diabetes mellitus HTN (hypertension) COPD (chronic obstructive pulmonary disease) Social History Alcohol intake: current Alcohol intake frequency: holidays/special occasions only Patient Tobacco Use Status: Never used Tobacco Second Hand Smoke Exposure: Yes Review of Systems Const All systems reviewed & are unremarkable except as noted in HPI and below Physical Exam Vital Signs: BMI result Body Mass Index 39.3 Const General: cooperative, healthy appearing and no acute distress Resp Effort & Inspection: normal respiratory effort and able to speak in complete sentences Cardio Rate: regular rate Peripheral pulses: Peripheral pulses 2+ throughout GI Palpation (GI): Soft to palpation Skin Lesions: no lesions Rashes: no rashes Extrem Other: Right shoulder: Normal to inspection. No ecchymosis, erythema, or edema. Lacking 10 degrees of forward flexion. Abduction to 100 degrees. Pain with cross-body reach. Pain and weakness with empty can. Negative drop arm. NVI. Assessment & Plan Assessment & Plan (1) Arthritis of right acromioclavicular joint: Code(s): M19.011 - Primary osteoarthritis, right shoulder Category: Medical Plan Ms. Vasquez is a 68-year-old right hand dominant female who presents in the office today for a follow up of right shoulder pain. I last saw the patient in the office on 07/23/2022 when the patient was offered a cortisone injection and PT but deferred at the time. She was given a prescription for Meloxicam 15 mg PO daily for 30 days. While in the office today the patient reports having an MRI done at [facility]. She claims her pain is a 5/10 in the office. She finds mild relief with Tylenol. Reports her pain is on the top of her shoulder and radiates to the back of her shoulder. She states the pain increases with movement. We again discussed cortisone injections and PT in the encounter today. However, the patient reports she is to undergo a heart catheterization in the near further and therefore would like to defer on these options at this time. A prescription for a topical cream was supplied in the office today. She was supplied with my business card and will contact the office once she is ready to proceed with physical therapy and/or cortisone injections. Follow up will be PRN, or sooner if needed. X-rays of the right shoulder which were obtained while in the office today and were reviewed by me, Bonnie Enrique PA-C, revealed no acute fracture or dislocation. AC joint arthritis noted. MRI of the right shoulder, obtained on 11/07/2023, revealed: 1. Broad high-grade articular sided partial tearing of the supraspinatus and infraspinatus with moderate supraspinatus muscle atrophy. 2. Moderate subacromial bursitis. 3. Mild acromioclavicular joint osteoarthritis. 4. Tendinopathy and agree partial tearing long head biceps tendon. 5. Glenohumeral joint effusion. Orders: Orders XR shoulder RT min 2V Today M25.519 - Pain in unspecified shoulder Patient Instructions: Scribed by Michelle Huertas medical support specialist, for Bonnie Enrique PA-C on 12/29/2023 at 10:20 am, EST. Coding Level of Care Code Est Pt Level 4 (49194) Diagnoses Arthritis of right acromioclavicular joint M19.011
[2023-12-29 09:55] VITALS: BMI 39.3
== END 2023-12-29 10:21 | disposition home or self-care (01) ==
PROVIDERS: PCP Internal Medicine; Visit Provider Physician Assistant
DX: M19.011 Primary osteoarthritis, right shoulder (principal)
CPT/HCPCS: 99213

== ENCOUNTER 2024-01-05 10:53 | Outpatient (AMB) | payer MEDICARE, SELFPAY ==
[2024-01-05 11:02] VITALS: BP 132/70; PULSE 72; O2SAT 99; BMI 38.7
--- NOTE | 2024-01-05 11:02 | MHC.OFFVIS ---
Vital Signs 01/05/24 11:02 Height 5 ft Weight 198 lb 6.656 oz BMI 38.7 BP 132/70 Blood Pressure Location Lt brachial Position Sitting Pulse 72 Pulse Source Pulse Oximeter Pulse Oximetry (%) 99 Oxygen Delivery Method Room Air Intake Visit Reasons: 3 mth f/up Allergies nitroglycerin [NITROGLYCERIN] Allergy (Severe, Verified 12/29/23 09:50) SEVERE HYPOTENSION codeine [CODEINE] Allergy (Intermediate, Verified 12/29/23 09:50) RASH Sulfa (Sulfonamide Antibiotics) [SULFA (SULFONAMIDE ANTIBIOTICS)] Allergy (Intermediate, Verified 12/29/23 09:50) VOMITING sulfamethoxazole [From BACTRIM] Allergy (Intermediate, Verified 12/29/23 09:50) VOMITING trimethoprim [From BACTRIM] Allergy (Intermediate, Verified 12/29/23 09:50) Vomiting Hsrhfzz-DIT-VjT Reductase Inhibitor [APKCMMH-TUN-YVF REDUCTASE INHIBITOR] Adverse Reaction (Severe, Verified 12/29/23 09:50) Severe muscle pain. Medication List - Last Reconciled 01/05/24 by Akash Márquez MD amlodipine 10 mg PO DAILY aspirin (Adult Aspirin Regimen) 81 mg PO DAILY atenolol 50 mg PO DAILY atorvastatin 20 mg PO BEDTIME cholecalciferol (vitamin D3) 25 mcg PO DAILY coQ10 (ubiquinol) (Qunol Vincent CoQ10) 100 mg PO DAILY 30 days hydrochlorothiazide 12.5 mg PO Q OTHER DAY losartan 50 mg PO BID omeprazole 20 mg PO DAILY HPI Comments Details: Suki returns for follow-up. Last year, she was seen in consultation regarding chest pain. She has had chest pains off and on thought to be from Benitez's esophagus. Then had an episode of chest pain when she was lying down at nighttime and that led to ER visit. No evidence of ACS. She is hypertension, dyslipidemia. Subsequently, she underwent workup with a coronary CTA that shows LAD stenosis. She still gets some heartburn type symptoms off and on but she still feels that that happens when she does not take her omeprazole. Hence not clear if it is rather acid reflux. Otherwise, some shortness of breath activity. She does have poorly controlled lipids. Statins cause lot of myalgias. With regard to Repatha, cost was too high and now she is trying statins again. [facility] Medical History (Updated 10/07/23 @ 11:25 by Akash Márquez MD) Atherosclerotic cardiovascular disease Snoring COVID-19 vaccine administered Hyperlipidemia Cervical cancer IBS (irritable bowel syndrome) HTN (hypertension) GERD (gastroesophageal reflux disease) Benitez esophagus Vitamin D deficiency Adrenal adenoma Surgical History History of repair of hiatal hernia History of rectal polypectomy History of cholecystectomy Hx of hysterectomy History of tonsillectomy Hx of colonoscopy Hx of hernia repair Family History Father Lung cancer Mother Diabetes mellitus HTN (hypertension) COPD (chronic obstructive pulmonary disease) Social History Alcohol intake: current Alcohol intake frequency: holidays/special occasions only Patient Tobacco Use Status: Never used Tobacco Second Hand Smoke Exposure: Yes Review of Systems Const Denies weakness ENT Denies dizziness Card Denies chest pain, Denies chest pain with activity, Denies syncope, Denies rapid heart rate, Denies pedal edema, Denies edema, Denies leg edema, Denies lightheadedness, Denies palpitations, Denies dyspnea, Denies dyspnea on exertion and Denies orthopnea Resp Denies cough, Denies dyspnea and Denies dyspnea on exertion GI Denies hematochezia and Denies change in stool character Musc Denies abnormal gait, Denies muscle cramps, Denies muscle weakness, Denies numbness, Denies radiating pain into limb and Denies tingling Neuro Denies abnormal gait, Denies dizziness, Denies syncope, Denies numbness, Denies tingling and Denies weakness Endo Denies palpitations Physical Exam Vital Signs: Last Vital Signs Pulse 72 01/05/24 11:02 BP 132/70 01/05/24 11:02 Pulse Ox 99 01/05/24 11:02 Oxygen Delivery Method Room Air 01/05/24 11:02 BMI result Body Mass Index 38.7 Const General: comfortable and no acute distress Orientation/consciousness: patient oriented x3 HEENT Other: Unremarkable Head: Yes normal to inspection Neck Neck: Yes normal visual inspection Chest Chest palpation & inspection: normal inspection of the chest Resp Auscultation: clear to auscultation bilaterally Cardio Palpation: normal PMI Heart sounds: S1 normal heart sound present, S2 normal heart sound present, no gallops, no murmurs and no rubs GI Palpation (GI): Soft to palpation Back/Spine/Pelvis Other: unremarkable Skin General skin exam: no rashes or lesions noted Neuro General: patient oriented x3 Extrem General: Yes normal to inspection Psych Mental Status: mental status grossly normal Assessment & Plan Assessment & Plan (1) Atherosclerotic cardiovascular disease: Code(s): I25.10 - Atherosclerotic heart disease of [place] coronary artery without angina pectoris Category: Medical Plan: Coronary CTA reviewed. Moderate to severe calcification the proximal LAD, probable less than 70% stenosis. First diagonal, 50% stenosis. Mid LAD, about 40% stenosis. Mid circumflex with about 50-70% stenosis. Mild RCA stenosis. FFR significant in the mid LAD, at 0.69. In the past, she has had chest pains. Currently, rather just burning type symptoms and she states that that can happen when she does not take omeprazole. Hence, could also be all possibly acid reflux than cardiac, but difficult to say definitively. Recommend diagnostic catheterization and she is agreeable. Can schedule. (2) HTN (hypertension): Code(s): I10 - Essential (primary) hypertension Category: Medical Plan: Continue current meds. With regard to amlodipine, she is getting some leg swelling but we can monitor. In the past, difficult to control blood pressures. (3) Hyperlipidemia: Code(s): E78.5 - Hyperlipidemia, unspecified Category: Medical Plan: History of statin intolerance. Now back on statins as Repatha was too expensive. We can recheck lipids. Orders: Orders Lipid Panel Today E78.5 - Hyperlipidemia, unspecified Liver Panel Today I25.10 - Atherosclerotic heart disease of [place] coronary artery without angina pectoris Basic Metabolic Panel Today I25.10 - Atherosclerotic heart disease of [place] coronary artery without angina pectoris Prothrombin Time INR Today I25.10 - Atherosclerotic heart disease of [place] coronary artery without angina pectoris Cardiac Cath LT Diagnostic Today I25.10 - Atherosclerotic heart disease of [place] coronary artery without angina pectoris Complete Blood Count no Diff Today I25.10 - Atherosclerotic heart disease of [place] coronary artery without angina pectoris Coding Level of Care Code Est Pt Level 4 (96056) Diagnoses Atherosclerotic cardiovascular disease I25.10 HTN (hypertension) I10 Hyperlipidemia E78.5
== END 2024-01-05 11:51 | disposition home or self-care (01) ==
PROVIDERS: PCP Internal Medicine; Visit Provider Internal Medicine
DX: I25.10 Atherosclerotic heart disease of native coronary artery without angina pectoris (principal); I10 Essential (primary) hypertension; E78.5 Hyperlipidemia, unspecified
CPT/HCPCS: 99214

== ENCOUNTER → 2024-01-05 10:53 | Outpatient (BNVA) | payer MEDICARE, SELFPAY | PROVIDERS: PCP Internal Medicine; Visit Provider Internal Medicine | DX: I25.10 Atherosclerotic heart disease of native coronary artery without angina pectoris (principal); I10 Essential (primary) hypertension; E78.5 Hyperlipidemia, unspecified | CPT/HCPCS: 99212 ==

== ENCOUNTER 2024-01-29 07:29 | Outpatient (REF) | payer MEDICARE, SELFPAY ==
[2024-01-29 08:19] LABS: INTERNATIONAL NORM RATIO 0.9 (0.9-1.1); Prothrombin Time 11.2 SEC (11.1-13.3)
[2024-01-29 08:24] LABS: Hematocrit 44.9 % (37.0-47.0); Hemoglobin 15.2 g/dl (12.0-16.0); Mean Corpuscular HGB Conc 33.9 g/dl (31.0-35.0); Mean Corpuscular Hemoglobin 28.6 pg (27.0-33.0); Mean Corpuscular Volume 84.4 fL (80.0-98.0); Mean Platelet Volume 11.6 fL (9.4-12.3); Platelet Count 213 X10*3/uL (160-400); Red Blood Count 5.32 X10*6/uL (4.20-5.50); Red Cell Distribution Width 14.4 % (11.0-16.0); White Blood Count 7.8 X10*3/uL (4.8-10.8)
[2024-01-29 09:04] LABS: Alanine Aminotransferase 16 U/L (0-31); Alkaline Phosphatase 63 U/L (39-117); Anion Gap 17 (12-20); Aspartate Amino Transferase 23 U/L (5-31); Bilirubin Direct 0.2 mg/dL (0.0-0.5); Bilirubin Total 0.5 mg/dL (0.0-1.0); Blood Urea Nitrogen 20 mg/dL (9-16); Calcium 10.2 mg/dL (8.4-10.2); Carbon Dioxide 23 mmol/L (22-29); Chloride 103 mmol/L (96-108); Cholesterol 161 mg/dL (<200); Estimated Glomerular Filt Rate 50; Glucose Random 111 mg/dL (60-115); HDL Cholesterol 53 mg/dL (>40); LDL Cholesterol Calculated 68 mg/dL (<100); Potassium 4.1 mmol/L (3.3-5.1); Sodium 139 mmol/L (135-145); Total Protein 7.8 g/dL (6.5-8.0); Triglycerides 204 mg/dL (<150)
== END 2024-01-29 07:30 | disposition home or self-care (01) ==
LOC: HO.LAB 07:29
PROVIDERS: PCP Internal Medicine; Visit Provider Internal Medicine
DX: E78.5 Hyperlipidemia, unspecified (principal); I25.10 Atherosclerotic heart disease of native coronary artery without angina pectoris
CPT/HCPCS: 36415; 80048; 80061; 80076; 85027; 85610

== ENCOUNTER → 2024-02-11 23:59 | Outpatient (BNV) | payer MEDICARE, SELFPAY | PROVIDERS: PCP Internal Medicine; Visit Provider Internal Medicine Cardiovascular Disease | DX: I20.89 Other forms of angina pectoris (principal) | CPT/HCPCS: 92928; 92978; 93458; 99152 ==

== ENCOUNTER 2024-02-25 13:29 | Outpatient (AMB) | payer MEDICARE, SELFPAY ==
--- NOTE | 2024-02-25 13:34 | MHC.OFFVIS ---
Vital Signs 02/25/24 13:35 Height 5 ft Weight 198 lb 6.656 oz BMI 38.7 BP 124/68 Blood Pressure Location Lt brachial Position Sitting Pulse 77 Pulse Source Pulse Oximeter Intake Visit Reasons: 2 wk s/p cath Allergies nitroglycerin [NITROGLYCERIN] Allergy (Severe, Verified 12/29/23 09:50) SEVERE HYPOTENSION codeine [CODEINE] Allergy (Intermediate, Verified 12/29/23 09:50) RASH Sulfa (Sulfonamide Antibiotics) [SULFA (SULFONAMIDE ANTIBIOTICS)] Allergy (Intermediate, Verified 12/29/23 09:50) VOMITING sulfamethoxazole [From BACTRIM] Allergy (Intermediate, Verified 12/29/23 09:50) VOMITING trimethoprim [From BACTRIM] Allergy (Intermediate, Verified 12/29/23 09:50) Vomiting Sonboel-RKJ-QzA Reductase Inhibitor [SCNTKVS-IAC-KMC REDUCTASE INHIBITOR] Adverse Reaction (Severe, Verified 12/29/23 09:50) Severe muscle pain. Medication List - Last Reconciled 02/25/24 by Cecily Angulo NP amlodipine 5 mg PO DAILY 90 days aspirin (Adult Aspirin Regimen) 81 mg PO DAILY atenolol 50 mg PO DAILY atorvastatin 20 mg PO BEDTIME cholecalciferol (vitamin D3) 25 mcg PO DAILY clopidogrel (Plavix) 75 mg PO DAILY coQ10 (ubiquinol) (Qunol Vincent CoQ10) 100 mg PO DAILY 30 days hydrochlorothiazide 12.5 mg PO Q OTHER DAY losartan 50 mg PO BID omeprazole 20 mg PO DAILY HPI Comments Details: 68-year-old female presents today for a follow-up post cardiac catheterization on 02/10/[address] Nicholas. She reports her breathing has improved and has had no bleeding issues. She was switched from Brilinta to Plavix due to it not being covered and has been tolerating it well. She denies any pain, swelling, drainage, or tenderness. She was accessed first in the right radial artery and then the right femoral artery. [facility] Medical History Atherosclerotic cardiovascular disease Snoring COVID-19 vaccine administered Hyperlipidemia Cervical cancer IBS (irritable bowel syndrome) HTN (hypertension) GERD (gastroesophageal reflux disease) Benitez esophagus Vitamin D deficiency Adrenal adenoma Surgical History (Updated 02/27/24 @ 08:55 by Cecily Angulo NP) S/P cardiac catheterization History of repair of hiatal hernia History of rectal polypectomy History of cholecystectomy Hx of hysterectomy History of tonsillectomy Hx of colonoscopy Hx of hernia repair Family History Father Lung cancer Mother Diabetes mellitus HTN (hypertension) COPD (chronic obstructive pulmonary disease) Social History Alcohol intake: current Alcohol intake frequency: holidays/special occasions only Patient Tobacco Use Status: Never used Tobacco Second Hand Smoke Exposure: Yes Review of Systems Const Denies weakness ENT Denies dizziness Card Denies chest pain, Denies chest pain with activity, Denies syncope, Denies rapid heart rate, Denies pedal edema, Denies edema, Denies leg edema, Denies lightheadedness, Denies palpitations, Denies dyspnea, Denies dyspnea on exertion and Denies orthopnea Resp Denies cough, Denies dyspnea and Denies dyspnea on exertion GI Denies hematochezia and Denies change in stool character Musc Denies abnormal gait, Denies muscle cramps, Denies muscle weakness, Denies numbness, Denies radiating pain into limb and Denies tingling Neuro Denies abnormal gait, Denies dizziness, Denies syncope, Denies numbness, Denies tingling and Denies weakness Endo Denies palpitations Physical Exam Vital Signs: Last Vital Signs Pulse 77 02/25/24 13:35 BP 124/68 02/25/24 13:35 BMI result Body Mass Index 38.7 Assessment & Plan Assessment & Plan (1) Atherosclerotic cardiovascular disease: Code(s): I25.10 - Atherosclerotic heart disease of [place] coronary artery without angina pectoris Category: Medical (2) S/P cardiac catheterization: Comment: 02/10/[address] Nicholas. LMCA: Normal LAD Ostial DI 90%. Moderate Diffuse disease in LAD LCx: kesion in 2nd Ob Lory. Mid Subsection 95%. Culprit Lesion RCA: Minimal Luminal Irregularities MO to OM2 Code(s): Z98.890 - Other specified postprocedural states Category: Medical (3) HTN (hypertension): Code(s): I10 - Essential (primary) hypertension Category: Medical (4) Hyperlipidemia: Code(s): E78.5 - Hyperlipidemia, unspecified Category: Medical Plan MO to OM2. Aspirin 81mg QD indefinitely. Was switched from Brilinta to Plavix. Plavix 12 months uninteruptted. Signs of bleeding reviewed. On 01/29/24 LDL was 68. Will repeat lipid panel in 3 months. Cardiac rehab oder already in. She checks blood pressures at home and are within range. Report any new or worsening symptoms. Orders: Orders Basic Metabolic Panel 02/25/24 I25.10 - Atherosclerotic heart disease of [place] coronary artery without angina pectoris Lipid Panel 02/25/24 I25.10 - Atherosclerotic heart disease of [place] coronary artery without angina pectoris Medications: Changed From amlodipine 10 mg PO DAILY 90 tabs 3RF To amlodipine 5 mg PO DAILY 90 tabs 3RF 90 days Coding Level of Care Code Est Pt Level 4 (21039) Diagnoses Atherosclerotic cardiovascular disease I25.10 S/P cardiac catheterization Z98.890 HTN (hypertension) I10 Hyperlipidemia E78.5
[2024-02-25 13:35] VITALS: BP 124/68; PULSE 77; BMI 38.7
== END 2024-02-25 14:08 | disposition home or self-care (01) ==
PROVIDERS: PCP Internal Medicine; Visit Provider Nurse Practitioner
DX: I25.10 Atherosclerotic heart disease of native coronary artery without angina pectoris (principal); Z98.890 Other specified postprocedural states; I10 Essential (primary) hypertension; E78.5 Hyperlipidemia, unspecified
CPT/HCPCS: 99214

== ENCOUNTER → 2024-02-25 13:29 | Outpatient (BNVA) | payer MEDICARE, SELFPAY | PROVIDERS: PCP Internal Medicine; Visit Provider Nurse Practitioner | DX: I25.10 Atherosclerotic heart disease of native coronary artery without angina pectoris (principal); I10 Essential (primary) hypertension; E78.5 Hyperlipidemia, unspecified; Z79.02 Long term (current) use of antithrombotics/antiplatelets; Z79.82 Long term (current) use of aspirin | CPT/HCPCS: 99212 ==

== ENCOUNTER 2024-05-07 10:00 | Outpatient (RCR) | payer MEDICARE, SELFPAY | END 2024-06-01 13:17 | disposition home or self-care (01) | LOC: HO.CR 10:00 | PROVIDERS: PCP Internal Medicine; Visit Provider Internal Medicine | DX: Z95.5 Presence of coronary angioplasty implant and graft (principal) | CPT/HCPCS: 93798 ==

== ENCOUNTER 2024-06-02 08:15 | Outpatient (REF) | payer MEDICARE, SELFPAY ==
[2024-06-02 09:28] LABS: Anion Gap 11 (12-20); Blood Urea Nitrogen 17 mg/dL (9-16); Calcium 9.8 mg/dL (8.4-10.2); Carbon Dioxide 28 mmol/L (22-29); Chloride 105 mmol/L (96-108); Cholesterol 172 mg/dL (<200); Estimated Glomerular Filt Rate 50; Glucose Random 111 mg/dL (60-115); HDL Cholesterol 47 mg/dL (>40); LDL Cholesterol Calculated 85 mg/dL (<100); Potassium 4.2 mmol/L (3.3-5.1); Sodium 140 mmol/L (135-145); Triglycerides 202 mg/dL (<150)
== END 2024-06-02 08:16 | disposition home or self-care (01) ==
LOC: HO.LAB 08:15
PROVIDERS: Nurse Practitioner; PCP Internal Medicine; Visit Provider Internal Medicine
DX: I25.10 Atherosclerotic heart disease of native coronary artery without angina pectoris (principal)
CPT/HCPCS: 36415; 80048; 80061

== ENCOUNTER 2024-06-07 12:41 | Outpatient (AMB) | payer MEDICARE, SELFPAY ==
--- NOTE | 2024-06-07 13:00 | A.OFFVIS_ITS ---
Vital Signs 06/07/24 13:01 Height 5 ft Weight 200 lb 9.93 oz BMI 39.2 BP 130/70 Blood Pressure Location Lt brachial Position Sitting Pulse 68 Pulse Source Pulse Oximeter Intake Visit Reasons: 3mth F/up Lipids rehab R/S fr 05/27 Platform Loader Required: No Accompanied by: Self / Same As Patient Allergies nitroglycerin [NITROGLYCERIN] Allergy (Severe, Verified 12/29/23 09:50) SEVERE HYPOTENSION codeine [CODEINE] Allergy (Intermediate, Verified 12/29/23 09:50) RASH Sulfa (Sulfonamide Antibiotics) [SULFA (SULFONAMIDE ANTIBIOTICS)] Allergy (Intermediate, Verified 12/29/23 09:50) VOMITING sulfamethoxazole [From BACTRIM] Allergy (Intermediate, Verified 12/29/23 09:50) VOMITING trimethoprim [From BACTRIM] Allergy (Intermediate, Verified 12/29/23 09:50) Vomiting Learvpn-AKY-ZpL Reductase Inhibitor [QNRXCNU-EUX-LIQ REDUCTASE INHIBITOR] Adverse Reaction (Severe, Verified 12/29/23 09:50) Severe muscle pain. Medication List - Last Reconciled 06/07/24 by Akash Márquez MD amlodipine 5 mg PO DAILY 90 days aspirin (Adult Aspirin Regimen) 81 mg PO DAILY atenolol 50 mg PO DAILY atorvastatin 20 mg PO BEDTIME 90 days cholecalciferol (vitamin D3) 25 mcg PO DAILY clopidogrel (Plavix) 75 mg PO DAILY coQ10 (ubiquinol) (Qunol Vincent CoQ10) 100 mg PO DAILY 30 days hydrochlorothiazide 12.5 mg PO Q OTHER DAY losartan 50 mg PO BID omeprazole 20 mg PO DAILY HPI Comments Details: Suki returns for follow-up. In 2022, she was seen in consultation regarding chest pain. She has had chest pains off and on thought to be from Benitez's esophagus. Then had an episode of chest pain when she was lying down at night time and that led to ER visit. She has hypertension, dyslipidemia. Subsequently, she underwent workup with a coronary CTA followed by cardiac catheterization. Underwent drug-eluting stent to OM2. Overall, main symptoms are aches and pains all over the body. She has fibromyalgia but she strongly believes that the statins and waking it much worse. Repatha was approved by insurance but the co-pay was way too high. [facility] Medical History Atherosclerotic cardiovascular disease Snoring COVID-19 vaccine administered Hyperlipidemia Cervical cancer IBS (irritable bowel syndrome) HTN (hypertension) GERD (gastroesophageal reflux disease) Benitez esophagus Vitamin D deficiency Adrenal adenoma Surgical History S/P cardiac catheterization History of repair of hiatal hernia History of rectal polypectomy History of cholecystectomy Hx of hysterectomy History of tonsillectomy Hx of colonoscopy Hx of hernia repair Family History Father Lung cancer Mother Diabetes mellitus HTN (hypertension) COPD (chronic obstructive pulmonary disease) Social History Alcohol intake: current Alcohol intake frequency: holidays/special occasions only Patient Tobacco Use Status: Never used Tobacco Second Hand Smoke Exposure: Yes Review of Systems Const Denies chills, Denies fatigue, Denies fever(s), Denies frequent falls, Denies weakness, Denies weight gain and Denies weight loss ENT Denies dizziness Card Denies chest pain, Denies leg edema, Denies lightheadedness, Denies palpitations, Denies dyspnea and Denies dyspnea on exertion Resp Denies cough, Denies dyspnea and Denies dyspnea on exertion GI Denies hematochezia Musc Denies abnormal gait, Denies muscle weakness, Denies numbness, Denies radiating pain into limb and Denies tingling Neuro Denies abnormal gait, Denies dizziness, Denies frequent falls, Denies numbness, Denies tingling and Denies weakness Endo Denies fatigue and Denies palpitations Physical Exam Vital Signs: Last Vital Signs Pulse 68 06/07/24 13:01 BP 130/70 06/07/24 13:01 BMI result Body Mass Index 39.2 Const General: comfortable and no acute distress Orientation/consciousness: patient oriented x3 HEENT Other: Unremarkable Head: Yes normal to inspection Neck Neck: Yes normal visual inspection Chest Chest palpation & inspection: normal inspection of the chest Resp Auscultation: clear to auscultation bilaterally Cardio Palpation: normal PMI Heart sounds: S1 normal heart sound present, S2 normal heart sound present, no gallops, no murmurs and no rubs GI Palpation (GI): Soft to palpation Back/Spine/Pelvis Other: unremarkable Skin General skin exam: no rashes or lesions noted Neuro General: patient oriented x3 Extrem General: Yes normal to inspection Psych Mental Status: mental status grossly normal Assessment & Plan Assessment & Plan (1) Atherosclerotic cardiovascular disease: Code(s): I25.10 - Atherosclerotic heart disease of [place] coronary artery without angina pectoris Category: Medical Plan: Cardiac catheterization data reviewed from 01/2024. Successful drug-eluting stent to OM2. Severe D1 stenosis but medically treated-if necessary, then bifurcation PCI. Moderate diffuse proximal LAD disease. Continue long-term aspirin. Plavix for the next year. With regard to lipids, much better than before but she states she does not want take statins due to myalgias. We can cut back on the atorvastatin from 20 mg to 10 mg daily and see how she does. May have to accept a low-dose statin as oppos ed to stopping it completely. With regard to Repatha, approved by insurance but she states her co-pay will be 600 dollars a month. Hence she would not want that. Otherwise, consider Zetia, but I doubt she will accept more meds. (2) HTN (hypertension): Code(s): I10 - Essential (primary) hypertension Category: Medical Plan: Stable. On atenolol, amlodipine, losartan, hydrochlorothiazide. (3) Hyperlipidemia: Code(s): E78.5 - Hyperlipidemia, unspecified Category: Medical Plan: Statin intolerance. Plan as above. Try to cut back on statin dose. Coding Level of Care Code Est Pt Level 4 (95751) Diagnoses Atherosclerotic cardiovascular disease I25.10 HTN (hypertension) I10 Hyperlipidemia E78.5
[2024-06-07 13:01] VITALS: BP 130/70; PULSE 68; BMI 39.2
== END 2024-06-07 13:21 | disposition home or self-care (01) ==
PROVIDERS: PCP Internal Medicine; Visit Provider Internal Medicine
DX: I25.10 Atherosclerotic heart disease of native coronary artery without angina pectoris (principal); I10 Essential (primary) hypertension; E78.5 Hyperlipidemia, unspecified
CPT/HCPCS: 99214

== ENCOUNTER → 2024-06-07 12:41 | Outpatient (BNVA) | payer MEDICARE, SELFPAY | PROVIDERS: PCP Internal Medicine; Visit Provider Internal Medicine | DX: R07.9 Chest pain, unspecified (principal); I25.10 Atherosclerotic heart disease of native coronary artery without angina pectoris; I10 Essential (primary) hypertension; E78.5 Hyperlipidemia, unspecified | CPT/HCPCS: 99212 ==

== ENCOUNTER 2024-12-02 08:00 | Outpatient (AMB) | payer MEDICARE, SELFPAY ==
--- OUTSIDE RECORDS SUMMARY | 2024-12-02 08:06 | XMS_ITS | Patient Health Record ---
Author Organization [facility] Address [address] [place] [address] Care Team Providers Care Patient Relations Director Name Role Phone Braulio Corrales MD Primary Care Provider Noel Lu Jr Unavailable Allergies Allergen (clinical drug ingredient) Drug/Non Drug Allergy documented on EMR Reaction Allergy Type Onset Date Status nitroglycerin Nitroglycerin sensitive Drug Allergy Active morphine Morphine Sulfate Unknown Drug Allergy Active Codeine Phosphate Unknown Drug Allergy Active sulfamethoxazole / trimethoprim Bactrim Unknown Drug Allergy Active Substance with 5-arttlaz-7-methylglutar yl-coenzyme A reductase inhibitor mechanism of action (substance) all statins (uncoded) Unknown Allergy Active Reason For Referral No Information Medications Medication SIG (Take, Route, Frequency, Duration) Notes Start Date End Date Status hydroCHLOROthiazide 12.5 MG TAKE 1 CAPSU LE BY MOUTH EVERY OTHER DAY Oral for 90 every other day takes med Active Tylenol 325 MG 1 tablet as needed Orally every 4 hrs PRN Active Losartan Potassium 25 MG 1 tablet Orally Once a day Active Atenolol 25 MG 1 tablet Orally Once a day Active Omeprazole 20 MG TAKE 1 CAPSULE BY MOUTH EVERY DAY 30 MINUTES BEFORE MORNING MEAL for 90 Active Vitamin D3 1000 UNIT 1 tablet Orally Once a day Active MiraLax (colon prep) 17 GM/SCOOP mixed with Gatorade or Crystal Light Orally begin at 5:00 p.m. the day before the procedure for 1 day 09/06/2022 Active Pantoprazole Sodium 40 MG 1 tablet 1/2 t o 1 hour before morning meal Orally Once a day for 30 days 12/02/2024 Active Immunizations Vaccine Route Administration Date Status Comme nts Influenza Unknown 05/31/2020 Administered Influenza Unknown 04/18/2022 Administered Influenza Unknown 07/30/2018 Refused Influenza Unknown 02/03/2019 Refused Influenza Unknown 08/04/2019 Refused Problems Problem Type SNOMED Code ICD Code Onset Dates Problem Status W/U Status Risk Notes Problem 778611711 Colon cancer screening (Z12.11) Active confirmed Problem 66825685 Epigastric pain (R10.13) Active confirmed Problem 937040990 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 confirmed Problem 460930284 Gastroesophageal reflux disease without esophagitis (K21.9) Active confirmed Problem 88254340 Hiatal hernia (K44.9) Active confirmed Problem 89126739 Erosive esophagi tis (K22.10) Active confirmed Problem 45144959 Iron deficiency anemia, unspecified iron deficiency anemia type (D50.9) Active confirmed Problem 62158191 Gastrointestinal hemorrhage, unspecified gastrointestinal hemorrhage type (K92.2) Active confirmed Problem Benitez esophagus (780416056) 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 [place] [address] 12/01/2024 Noel Robert Jr Plan Of Treatment Pending Test Test Name Order Date CBC w/o DIFF 03/06/2018 CBC w/o DIFF 08/21/2018 Future Test Test Name Order Date UPPER GI ENDOSCOPY 03/06/2018 COLONOSCOPY 03/06/2018 UPPER GI ENDOSCOPY 01/29/2021 COLONOSCOPY 09/06/2022 Insurance Providers Payer Name Payer Address Payer Phone Subscriber Number Group Number Insured Name Patient Relationship to Insured Coverage Start Date Coverage End Date MEDICARE OF [place] [address] [place] [address] [id number] DANILO MOSELEY Self - patient is the insured [employer] ATT[employer] CLAIMS [address] [place] [address] [id number] DANILO MOSELEY Self - patient is the insured Medical (General) History Medical History History ICD Code colonoscopy 05/06/18, polypoi d rectal mass, transanal excision, inflammatory cloacogenic polyp, five-year followup Benitez's esophagus, EGD 02/05, no dyspla alfredo, three-year EGD recall hypertension irritable bowel syndrome cervical cancer hyperlipidemia Surgical History Surgery Date(Month/Year) tonsillectomy oophorectomy for cancer with subsequent hysterectomy cholecystectomy oral surgery rectal polyp requiring trans anal excision, Dr. Sen, inflamed cloacogenic polyp 07/2018 hiatal hernia repair with fundoplication 06/30/2019 basal cell removal from from face
--- OUTSIDE RECORDS SUMMARY | 2024-12-02 08:06 | XMS_ITS ---
Author Organization [facility] Address [address] [place] [address] Care Team Providers Care Cement Paver Name Role Phone Savanna CHING, Braulio Primary Care Provider Unavaildelta Robert Jr, Noel Diaz REASON FOR VISIT screening Encounters Encounter Location Date Provider Diagnosis [facility] [address] [place] [id number] 06/03/2023 Noel Robert Jr Encounter for screening colonoscopy Z12.11 and Colon polyp K63.5 Assessments Encounter Date Diagnosis (ICD Code) Assessment Notes Treatment Notes Treatment Clinical Notes Section Notes 06/03/2023 Encounter for screening colonoscopy (ICD-10 - Z12.11) 06/03/2023 Colon polyp (ICD-10 - K63.5) Plan Of Treatment No Information Progress Notes * HAILEYDANILO PENN ADOB:[birth year] (69 yo F)Acc No.[id number]:06/03/2023 COLON WITH MAC Patient:?DANILO HART Provider:?Noel Robert MD :1955???Age:68 Y???Sex:Female D ate:06/03/2023 Address:[address] [place] [address] Pcp:Braulio Corrales MD Subjective: * Chief Complaints: * ???1. Screening. * Medical History:? Objective: * Vitals:? Assessment: * Assessment: 1.?Encounter for screening c olonoscopy - Z12.11 (Primary)???2.?Colon polyp - K63.5??? Plan: * Treatment: * Procedure Codes:?06296 LESIO N REMOVAL COLONOSCOPY, 35896 COLONOSCOPY AND BIOPSY, Modifiers: 59 , 0529F INTRVL 3+YRS PTS CLNSCP DOCD * * The named appointment provid er may or may not be the originator of this progress note, and it is not deemed complete until electronically signed by the appointment provider. Sign off status: Pending * Provider:?Noel Robert MD Date:?1 Generated for Bruce egan/Dmitriy/eTransmitting on:?12/02/2024 08:06 AM EDT
--- OUTSIDE RECORDS SUMMARY | 2024-12-02 08:06 | XMS_ITS | Clinical Summary ---
Author Organization [facility] Address [address] [place] [address] Care Team Providers Care Oil Deliverer Name Role Phone Mike Monson MD Primary Care Provider [phone] Social History Tobacco Use Types Packs/Day Years Used Date Smoking Tobacco: Never Assessed Comments Unknown Sex and Gender Information Value Date Recorded Sex Assigned at Not on file Legal Sex Female 6:47 AM EST Gender Identity Not on file Sexual Orientation Not on file Plan of Treatment Health Maintenance Due Date Last Done Comments Breast Cancer Screening 1955 DTaP,Tdap,and Td Vaccines (1 - Tdap) 1974 Pneumococcal Vaccine: 50+ Ye ars (1 of 1 - PCV) 2005 Zoster Vaccines (1 of 2) 2005 Colorectal Cancer Screening: Colonoscopy 07/21/2022 Depression Screening 07/21/2022 Falls Risk Assessment 07/21/2022 Hepatitis C Screening 07/21/2022 Osteoporosis Screening (Bone Density Screening) 07/21/2022 Social Influencers of Health Screening 07/21/2022 COVID-19 Vaccine ( - 2023-2 5 season) 2024 Influenza Vaccine (Season Ended) 2025 RSV Immunization Adult Patie nts (1 - 1-dose 75+ series) 2030 HIB Vaccines Aged Out No longer eligi ble based on patient's age to complete this topic HPV Vaccines Aged Out No longer eligi ble based on patient's age to complete this topic Hepatitis A Vaccines Aged Out No long er eligible based on patient's age to complete this topic Hepatitis B Vaccines Aged Out No long er eligible based on patient's age to complete this topic IPV Vaccines Aged Out No longer eligi ble based on patient's age to complete this topic MMR Vaccines Aged Out No longer eligi ble based on patient's age to complete this topic Meningococcal ACWY Vaccine Aged Out N o longer eligible based on patient's age to complete this topic Meningococcal B Vaccine Aged Out No l onger eligible based on patient's age to complete this topic RSV Immunization Patients Un rebecca 20 months Aged Out No longer eligible b ased on patient's age to complete this topic Varicella Vaccines Aged Out No longer eligible based on patient's age to complete this topic Advance Directives Documents on File Type Date Recorded 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
--- OUTSIDE RECORDS SUMMARY | 2024-12-02 08:06 | XMS_ITS ---
Author Organization [facility] Address [address] [place] [address] Care Team Providers Care Psych Specialist Name Role Phone Braulio Corrales MD Primary Care Provider Stefan Robert Jr, Noel Diaz REASON FOR VISIT cell:[phone]/increase acid reflux Medications Medication SIG (Take, Route, Frequency, Duration) Notes Start Date End Date Status Pantoprazole Sodium 40 MG 1 tablet 1/2 t o 1 hour before morning meal Orally Once a day for 30 days 12/02/2024 Active Encounters Encounter Location Date Provider Diagnosis [facility] [address] [address] 12/01/2024 Noel Robert Jr Plan Of Treatment Medication Medication Name Sig Start Date Stop Date Notes Pantoprazole Sodium 40 MG 1 tablet 1/2 t o 1 hour before morning meal Orally Once a day for 30 days 12/02/2024 Progress Notes * HAILEYDANILO PENN ADOB:[birth year] (69 yo F)Acc No.[id number]:12/01/2024 Patient:?DANILO HART :1955???Age:69 Y???Sex:Female Address:[address] [place] [address] * Refills? Start Pantoprazole Sodium Tablet Delayed Release, 40 MG, Orally, 30, 1 tablet 1/2 to 1 hour before morning meal, Once a day, 30 days, Refills=3 * * Date:?
--- OUTSIDE RECORDS SUMMARY | 2024-12-02 08:06 | XMS_ITS ---
Author Organization [facility] Address [address] [place] [address] Care Team Providers Care Anesthesiologist Assistant Certified Name Role Phone Braulio Corrales MD Primary Care Provider Noel Lu Jr [phone] REASON FOR VISIT pathology Encounters Encounter Location Date Provider Diagnosis [facility] [address] [place] [address] 06/12/2023 Noel Robert Jr Plan Of Treatment No Information Progress Notes * DANILO HART ADOB:[birth year] (68 yo F)Acc No.[id number]:06/12/2023 Patient:?DANILO HART :1955???Age:68 Y???Sex:Female Address:[address] [place] [address] * true * Date:? Generated for Bruce egan/Dmitriy/eTransmitting on:?12/02/2024 08:05 AM EDT
[2024-12-02 08:15] VITALS: BP 110/72; PULSE 80; BMI 40.4
--- NOTE | 2024-12-02 08:15 | A.OFFVIS_ITS ---
Vital Signs 12/02/24 08:15 Height 5 ft Weight 206 lb 12.697 oz BMI 40.4 BP 110/72 Blood Pressure Location Lt brachial Position Sitting Pulse 80 Pulse Source Monitor Intake Visit Reasons: 6 mth f/up Intake Note: 6 month follow-up with ekg c/o Playground Director Required: No Accompanied by: Self / Same As Patient Allergies nitroglycerin [NITROGLYCERIN] Allergy (Severe, Verified 12/29/23 09:50) SEVERE HYPOTENSION codeine [CODEINE] Allergy (Intermediate, Verified 12/29/23 09:50) RASH Sulfa (Sulfonamide Antibiotics) [SULFA (SULFONAMIDE ANTIBIOTICS)] Allergy (Intermediate, Verified 12/29/23 09:50) VOMITING sulfamethoxazole [From BACTRIM] Allergy (Intermediate, Verified 12/29/23 09:50) VOMITING trimethoprim [From BACTRIM] Allergy (Intermediate, Verified 12/29/23 09:50) Vomiting Rwtsuhz-VHR-LnA Reductase Inhibitor [HQVKZQS-EIJ-SVQ REDUCTASE INHIBITOR] Adverse Reaction (Severe, Verified 12/29/23 09:50) Severe muscle pain. Medication List - Last Reconciled 12/02/24 by Akash Márquez MD amlodipine 5 mg PO DAILY 90 days atenolol 50 mg PO DAILY atorvastatin 20 mg PO BEDTIME 90 days cholecalciferol (vitamin D3) 25 mcg PO DAILY clopidogrel 75 mg PO DAILY coQ10 (ubiquinol) (Qunol Vincent CoQ10) 100 mg PO DAILY 30 days hydrochlorothiazide 12.5 mg PO ONCE losartan 50 mg PO BID omeprazole 20 mg PO DAILY HPI Comments Details: Suki returns for follow-up. In 2022, she was seen in consultation regarding chest pain. She has had chest pains off and on thought to be from Benitez's esophagus. Then had an episode of chest pain when she was lying down at night time and that led to ER visit. She has hypertension, dyslipidemia. Subsequently, she underwent workup with a coronary CTA followed by cardiac catheterization. Underwent drug-eluting stent to OM2. She feels that she already has acid reflux and aspirin is making it worse. She tried to hold it briefly and apparently felt better. She also has fibromyalgia history and she feels that statins and making them worse. Repatha was approved by insurance but the co-pay was way too high. [facility] Medical History (Updated 12/02/24 @ 08:55 by Akash Márquez MD) Atherosclerotic cardiovascular disease Snoring COVID-19 vaccine administered Hyperlipidemia Cervical cancer IBS (irritable bowel syndrome) HTN (hypertension) GERD (gastroesophageal reflux disease) Benitez esophagus Vitamin D deficiency Adrenal adenoma Surgical History S/P cardiac catheterization History of repair of hiatal hernia History of rectal polypectomy History of cholecystectomy Hx of hysterectomy History of tonsillectomy Hx of colonoscopy Hx of hernia repair Family History Father Lung cancer Mother Diabetes mellitus HTN (hypertension) COPD (chronic obstructive pulmonary disease) Social History Alcohol intake: current Alcohol intake frequency: holidays/special occasions only Patient Tobacco Use Status: Never used Tobacco Second Hand Smoke Exposure: Yes Review of Systems Const Denies chills, Denies fatigue, Denies fever(s), Denies frequent falls, Denies weakness, Denies weight gain and Denies weight loss ENT Denies dizziness Card Denies chest pain, Denies leg edema, Denies lightheadedness, Denies palpitations, Denies dyspnea, Denies dyspnea on exertion, Denies orthopnea and Denies other (loss of consciousness) Resp Denies cough, Denies dyspnea and Denies dyspnea on exertion GI Denies hematochezia and Denies change in stool character Musc Denies abnormal gait, Denies muscle weakness, Denies numbness, Denies radiating pain into limb and Denies tingling Neuro Denies abnormal gait, Denies dizziness, Denies frequent falls, Denies numbness, Denies tingling and Denies weakness Endo Denies fatigue and Denies palpitations Physical Exam Vital Signs: Last Vital Signs Pulse 80 12/02/24 08:15 BP 110/72 12/02/24 08:15 BMI result Body Mass Index 40.4 Const General: comfortable and no acute distress Orientation/consciousness: patient oriented x3 HEENT Other: Unremarkable Head: Yes normal to inspection Neck Neck: Yes normal visual inspection Chest Chest palpation & inspection: normal inspection of the chest Resp Auscultation: clear to auscultation bilaterally Cardio Palpation: normal PMI Heart sounds: S1 normal heart sound present, S2 normal heart sound present, no gallops, no murmurs and no rubs GI Palpation (GI): Soft to palpation Back/Spine/Pelvis Other: unremarkable Skin General skin exam: no rashes or lesions noted Neuro General: patient oriented x3 Extrem General: Yes normal to inspection Psych Mental Status: mental status grossly normal Office Procedures EKG Details: EKG with underlying sinus rhythm at 80/Min; KS prolongation to 278 milliseconds; low-voltage QRS complexes; [place]. [address]Ffmfajfsgwhbefkmu, Complete Assessment & Plan Assessment & Plan (1) Atherosclerotic cardiovascular disease: Code(s): I25.10 - Atherosclerotic heart disease of [place] coronary artery without angina pectoris Category: Medical Plan: Cardiac catheterization data 01/2024. Successful drug-eluting stent to OM2. Severe D1 stenosis but medically treated-if necessary, then bifurcation PCI. Moderate diffuse proximal LAD disease. Due to acid reflux symptoms, stop aspirin. Continue Plavix. Still on statins but continues to complain of myalgias. With regard to Repatha, approved by insurance but she states her co-pay will be 600 dollars a month. Hence she would not want that. Possibly add Zetia in the future if willing. (2) HTN (hypertension): Code(s): I10 - Essential (primary) hypertension Category: Medical Plan: Stable. On atenolol, amlodipine, losartan, hydrochlorothiazide. (3) Hyperlipidemia: Code(s): E78.5 - Hyperlipidemia, unspecified Category: Medical Plan: Plan as above. (4) First degree heart block: Code(s): I44.0 - Atrioventricular block, first degree Category: Medical Plan: Decrease beta-sam dosing. Plan I discussed the potential role of aspirin in worsening the patient's g astroesophageal reflux disease symptoms. Given her current use of Clopidogrel for antiplatelet therapy, we agreed to discontinue aspirin and monitor her reflux symptoms. For her hypertension, we discussed adjusting atenolol dosage to minimize side effects that may be contributing to her fatigue. Risks and benefits of altering her medication regimen were outlined, and the patient consented to the proposed adjustments. Coordination with her primary physician for ongoing blood pressure management was emphasized. Medications: New atenolol 25 mg PO DAILY 90 tabs 3RF Patient Instructions: - Stop taking aspirin and continue Clopidogrel (Plavix). - Decrease Atenolol dose from 50mg to 25mg daily. - Monitor for any changes in symptoms related to acid reflux or blood pressure. - Follow up with your new primary care physician for hypertension management. - Report any unusual symptoms or lack of improvement in symptoms. Coding Level of Care Code Est Pt Level 4 (42914) Complex EM visit Add On G2211 Diagnoses Atherosclerotic cardiovascular disease I25.10 HTN (hypertension) I10 Hyperlipidemia E78.5 First degree heart block I44.0 CPT Codes EKG - CPT: 80449-[id number], Complete ([id number])
== END 2024-12-02 08:38 | disposition home or self-care (01) ==
LOC: HO.HCS 08:00
PROVIDERS: PCP Internal Medicine; Visit Provider Internal Medicine
DX: I25.10 Atherosclerotic heart disease of native coronary artery without angina pectoris (principal); I10 Essential (primary) hypertension; E78.5 Hyperlipidemia, unspecified; I44.0 Atrioventricular block, first degree
CPT/HCPCS: 93010; 99214; G2211

== ENCOUNTER → 2024-12-02 08:00 | Outpatient (BNVA) | payer MEDICARE, SELFPAY | PROVIDERS: PCP Internal Medicine; Visit Provider Internal Medicine | DX: I25.10 Atherosclerotic heart disease of native coronary artery without angina pectoris (principal); I10 Essential (primary) hypertension; E78.5 Hyperlipidemia, unspecified; I44.0 Atrioventricular block, first degree; R07.9 Chest pain, unspecified | CPT/HCPCS: 93005; 99212 ==

== ENCOUNTER 2024-12-14 11:19 | Outpatient (AMB) | payer MEDICARE, SELFPAY ==
[2024-12-14 11:26] VITALS: BP 124/70; PULSE 76; TEMP 36.6; O2SAT 97; BMI 39.6
--- NOTE | 2024-12-14 11:26 | MHC.PC.OV ---
Vital Signs 12/14/24 11:26 Height 5 ft Weight 92.079 kg BMI 39.6 BP 124/70 Blood Pressure Location Rt brachial Position Sitting Pulse 76 Pulse Source Pulse Oximeter Temp 98 F Temp Source Axillary Pulse Oximetry (%) 97 Oxygen Delivery Method Room Air Intake Visit Reasons: Sick Appt Radio News Anchor Required: No Accompanied by: Self / Same As Patient Allergies nitroglycerin [NITROGLYCERIN] Allergy (Severe, Verified 12/14/24 11:26) SEVERE HYPOTENSION codeine [CODEINE] Allergy (Intermediate, Verified 12/14/24 11:26) RASH Sulfa (Sulfonamide Antibiotics) [SULFA (SULFONAMIDE ANTIBIOTICS)] Allergy (Intermediate, Verified 12/14/24 11:26) VOMITING sulfamethoxazole [From BACTRIM] Allergy (Intermediate, Verified 12/14/24 11:26) VOMITING trimethoprim [From BACTRIM] Allergy (Intermediate, Verified 12/14/24 11:26) Vomiting Nxqzyyb-LUH-MuF Reductase Inhibitor [YWWOSWN-QPQ-ZRF REDUCTASE INHIBITOR] Adverse Reaction (Severe, Verified 12/14/24 11:26) Severe muscle pain. Medication List - Last Reconciled 12/14/24 by ITA Simpson amlodipine 5 mg PO DAILY 90 days amoxicillin 875 mg PO BID atenolol 25 mg PO DAILY atorvastatin 20 mg PO BEDTIME 90 days cholecalciferol (vitamin D3) 25 mcg PO DAILY clopidogrel 75 mg PO DAILY coQ10 (ubiquinol) (Qunol Vincent CoQ10) 100 mg PO DAILY 30 days fluconazole 150 mg PO Q3D 2 doses hydrochlorothiazide 12.5 mg PO ONCE losartan 50 mg PO BID pantoprazole 40 mg PO DAILY Tobacco use date assessed: 12/14/24 Fall risk assessment: No Falls in past year Last assessed Fall Risk: 12/14/24 Dental Screening Dental Screen Date: 12/14/24 Did you have a dental visit in the last 12 months?: No Did you have a dental problem in the last 6 months where you did not have access to dental care?: No HPI HPI Comments History of Present Illness Details 69-year-old female with history of hypertension and coronary artery disease s/p PCI with MO to the OM 2 presents to the office today for evaluation of upper respiratory symptoms ongoing for 4 days. The patient reports that she went away on vacation to [facility] for 4 days and the next day woke up with significant sinus pressure and headache. Then developed nasal congestion with yellow/green mucus. There has been significant facial pressure that worsens when bending forward. She has also had a nonproductive cough, bilateral ear pressure, and mild sore throat. She denies any sick contacts. She did take a COVID-19 test which was negative at home. She denies any fevers, chills. She has been taking Tylenol and has used Sudafed without much relief. [facility] Medical History Atherosclerotic cardiovascular disease Snoring COVID-19 vaccine administered Hyperlipidemia Cervical cancer IBS (irritable bowel syndrome) HTN (hypertension) GERD (gastroesophageal reflux disease) Benitez esophagus Vitamin D deficiency Adrenal adenoma Surgical History S/P cardiac catheterization History of repair of hiatal hernia History of rectal polypectomy History of cholecystectomy Hx of hysterectomy History of tonsillectomy Hx of colonoscopy Hx of hernia repair Family History Father Lung cancer Mother Diabetes mellitus HTN (hypertension) COPD (chronic obstructive pulmonary disease) Social History Housing: House Alcohol intake: current Alcohol intake frequency: holidays/special occasions only Patient Tobacco Use Status: Never used Tobacco e-Cigarette/Vaping Use: Never Used Second Hand Smoke Exposure: Yes service: No Current occupational status: retired Cognitive needs: No Hearing needs: No Vision needs: Yes (rx glasses) Questionnaire PHQ-9 Over the last 2 weeks, how often have you been bothered by any of the following problems? 1. Little interest or pleasure in doing things: not at all 2. Feeling down, depressed, or hopeless: not at all 3. Trouble falling or staying asleep, or sleeping too much: not at all 4. Feeling tired or having little energy: not at all 5. Poor appetite or overeating: not at all 6. Feeling bad about yourself - or that you are a failure or have let yourself or your family down: not at all 7. Trouble concentrating on things, such as reading the newspaper or watching television: not at all 8. Moving or speaking so slowly that other people could have noticed. Or the opposite - being so fidgety or restless that you have been moving around a lot more than usual: not at all 9. Thoughts that you would be better off or of hurting yourself in some way: not at all Total score: 0 Source: Developed by Drs. Brandan Nolasco, Kamini Espino, Steven Ramirez and colleagues, with an educational sridhar from [employer]. Thrive Questionnaire Date Thrive assessed: 12/14/24 I am a: Patient Within the past 12 months, did the food you bought not last and you didn't have the money to get more?: Never true Within the past 12 months, did you worry whether your food would run out before you got money to buy more?: Never true Do you have trouble paying for medicines?: No Do you have trouble getting transportation to medical appointments?: No Do you have trouble paying your heating and electricity bill?: No Do you have trouble taking care of your child, family member or friend?: No Do you have trouble with day-to-day activities such as bathing, preparing meals, shopping, managing finances, etc.?: No Are you currently unemployed and looking for a job?: No Are you interested in more education?: No THRIVE Score: 0 AUDIT C Alcohol Use Questionnaire (AUDIT-C) 1. How often do you have a drink containing alcohol?: Monthly or less 2. How many drinks containing alcohol do you have on a typical day when you are drinking?: 1 or 2 3. How often do you have six or more drinks on one occasion?: Less than monthly Total Score: 2 ANJUM-7 AMB Questionnaire ANJUM-7 Date ANJUM - 7 assessed: 12/14/24 Feeling nervous, anxious, or on edge: 0 = Not at all Not being able to stop or control worryin = Not at all Worrying too much about different things: 0 = Not at all Trouble relaxin = Not at all Being so restless that it is hard to sit still: 0 = Not at all Becoming easily annoyed or irritable: 0 = Not at all Feeling afraid as if something awful might happen: 0 = Not at all Total ANJUM-7 score (0-4 normal; 5-9 mild; 10-14 moderate; 15-21 severe): 0 Source: Developed by Drs. Brandan Nolasco, Kamini Espino, Steven Ramirez and colleagues, with an educational sridhar from [employer]. Review of Systems Const All systems reviewed & are unremarkable except as noted in HPI and below Physical exam (Primary Care) Vital Signs: Last Vital Signs Temp 98 F 12/14/24 11:26 Pulse 76 12/14/24 11:26 BP 124/70 12/14/24 11:26 Pulse Ox 97 12/14/24 11:26 Oxygen Delivery Method Room Air 12/14/24 11:26 BMI result Body Mass Index 39.6 Tobacco/Smoking Status: Tobacco use Status Tobacco use date assessed 12/14/24 12/14/24 11:28 Patient Tobacco Use Status Never used Tobacco 12/14/24 11:28 e-Cigarette/Vaping Use Never Used 12/14/24 11:28 PHQ-9: PHQ-9 Score PHQ-9: Total score 0 12/14/24 11:28 Thrive Assessment: Date of Thrive Assessment Date Thrive assessed 12/14/24 12/14/24 11:28 Const Other: Constitutional - Awake and Alert, No apparent distress Eyes - PERRLA Ears- external ear normal, canals without edema but with slight erythema, tympanic membrane pearly moy with good cone of light nonbulging and intact Nose-erythematous turbinates without any edema or significant drainage. Significant maxillary and frontal tenderness to percussion/palpation. Mouth/throat-erythema of the posterior oropharynx without any tonsillar edema or exudate noted Neck-anterior cervical and tonsillar adenopathy Cardiovascular - S1S2, RRR, No edema Respiratory - Normal lung expansion, Normal respiratory effort, No respiratory distress, CTA bilaterally Extremities - no calf tenderness bilaterally, no swelling Skin - Warm/Dry Neurological - Alert & oriented Coding Level of Care Code New Pt Level 4 (05445) Diagnoses Acute rhinosinusitis J01.90 Atherosclerotic cardiovascular disease I25.10 HTN (hypertension) I10 Assessment & Plan Assessment & Plan (1) Acute rhinosinusitis: Code(s): J01.90 - Acute sinusitis, unspecified Category: Medical Plan: Discussed that after 4 days, infection is likely self limiting. Conservative therapies such as saline/fluticasone nasal spray and saline rinses such as Neti-pot are advised. Mucolytics such as guaifenesin can also be helpful, but advised to seek out HBP versions of the medication. Recommend avoiding sudafed given cardiac history/htn. Given significant comorbities including CAD w/ PCI within the last year, will also prescribe augmentin 875mg BID x 7 days. Counseled on side effects. She is concerned about potential yeast infection r/t antibiotic use and is prescribed one time dose fluconazole (to repeat in 3 days if no improvement). Recommend probiotic. (2) Atherosclerotic cardiovascular disease: Code(s): I25.10 - Atherosclerotic heart disease of [place] coronary artery without angina pectoris Category: Medical Plan: No chest pain. Continue current therapies. Recommendations as above. (3) HTN (hypertension): Code(s): I10 - Essential (primary) hypertension Category: Medical Plan: Blood pressure stable. Continue current therapies. Advised to use caution with sudafed and certain cough medications. Medications: New fluconazole Take for symptoms or yeast infection. If symptoms persist after 3 days, may repeat dose 150 mg PO Q3D 2 tabs 0RF amoxicillin 875 mg PO BID 14 tabs 0RF
--- OUTSIDE RECORDS SUMMARY | 2024-12-14 13:22 | XMS_ITS | Clinical Summary ---
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
== END 2024-12-14 12:58 | disposition home or self-care (01) ==
LOC: HO.HMCHD 11:20
PROVIDERS: PCP Physician Assistant; Visit Provider Physician Assistant
DX: J01.90 Acute sinusitis, unspecified (principal); I25.10 Atherosclerotic heart disease of native coronary artery without angina pectoris; I10 Essential (primary) hypertension

== ENCOUNTER → 2024-12-14 11:19 | Outpatient (BNVA) | payer MEDICARE, SELFPAY | PROVIDERS: PCP Physician Assistant; Visit Provider Physician Assistant | DX: I10 Essential (primary) hypertension (principal); I25.10 Atherosclerotic heart disease of native coronary artery without angina pectoris; J01.90 Acute sinusitis, unspecified | CPT/HCPCS: 96127; 99202 ==

== ENCOUNTER 2024-12-23 10:29 | Outpatient (AMB) | payer MEDICARE, SELFPAY ==
[2024-12-23 09:44] VITALS: BP 124/70; PULSE 61; TEMP 36.4; O2SAT 97; BMI 39.1
--- NOTE | 2024-12-23 09:44 | MHC.PC.OV ---
Vital Signs 12/23/24 09:44 Height 5 ft Weight 200 lb BMI 39.1 BP 124/70 Blood Pressure Location Rt brachial Position Sitting Pulse 61 Pulse Source Pulse Oximeter Temp 97.5 F Temp Source Axillary Pulse Oximetry (%) 97 Oxygen Delivery Method Room Air Intake Visit Reasons: Routine Coffee Sampler Required: No Accompanied by: Self / Same As Patient Allergies nitroglycerin [NITROGLYCERIN] Allergy (Severe, Verified 12/23/24 09:44) SEVERE HYPOTENSION codeine [CODEINE] Allergy (Intermediate, Verified 12/23/24 09:44) RASH Sulfa (Sulfonamide Antibiotics) [SULFA (SULFONAMIDE ANTIBIOTICS)] Allergy (Intermediate, Verified 12/23/24 09:44) VOMITING sulfamethoxazole [From BACTRIM] Allergy (Intermediate, Verified 12/23/24 09:44) VOMITING trimethoprim [From BACTRIM] Allergy (Intermediate, Verified 12/23/24 09:44) Vomiting Hgcajxv-FPX-JsF Reductase Inhibitor [HMVGCLE-GHC-DKC REDUCTASE INHIBITOR] Adverse Reaction (Severe, Verified 12/23/24 09:44) Severe muscle pain. Tobacco use date assessed: 12/23/24 Fall risk assessment: No Falls in past year Last assessed Fall Risk: 12/23/24 Dental Screening Dental Screen Date: 12/23/24 Did you have a dental visit in the last 12 months?: No Did you have a dental problem in the last 6 months where you did not have access to dental care?: No HPI HPI Comments History of Present Illness Details 69-year-old female with history of hypertension and coronary artery disease s/p PCI with MO to the OM 2, GERD presenting for follow up. Last seen by pcp last summer. CV: Follows with cardiology. Atenolol was just decreased in half. Still has some residual fatigue. on amlodipine, lipitor, plavix, losartan. Frustrated by weight gain. Exercise,dietary changes without weight loss GERD: on PPI. Left shoulder pain. Ongoing, worsening Colonoscopy:2022-5 years DXA: 11/2023 ROS CONSTITUTIONAL: Denies weight loss, fever and chills. HEENT: Denies changes in vision and hearing. RESPIRATORY: Denies SOB and cough. CV: Denies palpitations and CP GI: Denies abdominal pain, nausea, vomiting and diarrhea. : Denies dysuria and urinary frequency. MSK: Denies new myalgia and joint pain. SKIN: Denies rash and pruritus. NEUROLOGICAL: Denies headache PSYCHIATRIC: Denies recent changes in mood. PHYSICAL EXAM: GENERAL: Alert and oriented x 3. NAD EYES: EOMI. Anicteric. HENT: Moist mucous membranes. No scleral icterus. No cervical lymphadenopathy. LUNGS: Clear to auscultation bilaterally. CARDIOVASCULAR: Regular rate and rhythm. No murmur. No JVD. ABDOMEN: Soft, non-tender +bs EXTREMITIES: No edema. Non-tender. SKIN: No rashes or lesions. Warm. NEUROLOGIC: No focal neurological deficits. CN II-XII grossly intact PSYCHIATRIC: Cooperative. Appropriate mood and affect [facility] Medical History Atherosclerotic cardiovascular disease Snoring COVID-19 vaccine administered Hyperlipidemia Cervical cancer IBS (irritable bowel syndrome) HTN (hypertension) GERD (gastroesophageal reflux disease) Benitez esophagus Vitamin D deficiency Adrenal adenoma Surgical History S/P cardiac catheterization History of repair of hiatal hernia History of rectal polypectomy History of cholecystectomy Hx of hysterectomy History of tonsillectomy Hx of colonoscopy (~06/03/23) Hx of hernia repair Family History Father Lung cancer Mother Diabetes mellitus HTN (hypertension) COPD (chronic obstructive pulmonary disease) Brother Mental health disorder Social History Housing: House Alcohol intake: current Alcohol intake frequency: holidays/special occasions only Patient Tobacco Use Status: Never used Tobacco e-Cigarette/Vaping Use: Never Used Second Hand Smoke Exposure: Yes service: No Current occupational status: retired Cognitive needs: No Hearing needs: No Vision needs: Yes (rx glasses) Questionnaire PHQ-9 Over the last 2 weeks, how often have you been bothered by any of the following problems? 1. Little interest or pleasure in doing things: not at all 2. Feeling down, depressed, or hopeless: not at all 3. Trouble falling or staying asleep, or sleeping too much: not at all 4. Feeling tired or having little energy: not at all 5. Poor appetite or overeating: not at all 6. Feeling bad about yourself - or that you are a failure or have let yourself or your family down: not at all 7. Trouble concentrating on things, such as reading the newspaper or watching television: not at all 8. Moving or speaking so slowly that other people could have noticed. Or the opposite - being so fidgety or restless that you have been moving around a lot more than usual: not at all 9. Thoughts that you would be better off or of hurting yourself in some way: not at all Total score: 0 Depression Screening Interpretation: Negative Depression Screening Done: Yes 76206 - PHQ-9 Billing: Yes Source: Developed by Drs. Brandan Nolasco, Kamini Espino, Steven Ramirez and colleagues, with an educational sridhar from [employer]. Thrive Questionnaire Date Thrive assessed: 12/23/24 I am a: Patient Within the past 12 months, did the food you bought not last and you didn't have the money to get more?: Never true Within the past 12 months, did you worry whether your food would run out before you got money to buy more?: Never true Do you have trouble paying for medicines?: No Do you have trouble getting transportation to medical appointments?: No Do you have trouble paying your heating and electricity bill?: No Do you have trouble taking care of your child, family member or friend?: No Do you have trouble with day-to-day activities such as bathing, preparing meals, shopping, managing finances, etc.?: No Are you currently unemployed and looking for a job?: No Are you interested in more education?: No THRIVE Score: 0 AUDIT C Alcohol Use Questionnaire (AUDIT-C) 1. How often do you have a drink containing alcohol?: Monthly or less 2. How many drinks containing alcohol do you have on a typical day when you are drinking?: 1 or 2 3. How often do you have six or more drinks on one occasion?: Less than monthly Total Score: 2 ANJUM-7 AMB Questionnaire ANJUM-7 Date ANJUM - 7 assessed: 12/23/24 Feeling nervous, anxious, or on edge: 0 = Not at all Not being able to stop or control worryin = Not at all Worrying too much about different things: 0 = Not at all Trouble relaxin = Not at all Being so restless that it is hard to sit still: 0 = Not at all Becoming easily annoyed or irritable: 0 = Not at all Feeling afraid as if something awful might happen: 0 = Not at all Total ANJUM-7 score (0-4 normal; 5-9 mild; 10-14 moderate; 15-21 severe): 0 Source: Developed by Drs. Brandan Nolasco, Kamini Espino, Steven Ramirez and colleagues, with an educational sridhar from [employer]. Physical exam (Primary Care) Vital Signs: Last Vital Signs Temp 97.5 F 12/23/24 09:44 Pulse 61 12/23/24 09:44 BP 124/70 12/23/24 09:44 Pulse Ox 97 12/23/24 09:44 Oxygen Delivery Method Room Air 12/23/24 09:44 BMI result Body Mass Index 39.1 Tobacco/Smoking Status: Tobacco use Status Tobacco use date assessed 12/23/24 12/23/24 09:45 Patient Tobacco Use Status Never used Tobacco 12/23/24 09:45 e-Cigarette/Vaping Use Never Used 12/23/24 09:45 PHQ-9: PHQ-9 Score PHQ-9: Total score 0 12/23/24 11:05 Depression Screening Interpretation: Negative Thrive Assessment: Date of Thrive Assessment Date Thrive assessed 12/23/24 12/23/24 09:45 Coding Level of Care Code New Pt Level 4 (29113) Complex EM visit Add On G2211 Diagnoses S/P cardiac catheterization Z98.890 Primary hypertension I10 Hypertension type: primary hypertension Hyperlipidemia, unspecified hyperlipidemia type E78.5 Hyperlipidemia type: unspecified Arthritis of right acromioclavicular joint M19.011 Additional Codes PHQ-9 - 34472 - PHQ-9 Billing: Yes ([id number]) Assessment & Plan Assessment & Plan (1) S/P cardiac catheterization: Comment: 02/10/[address] Nicholas. LMCA: Normal LAD Ostial DI 90%. Moderate Diffuse disease in LAD LCx: kesion in 2nd Ob Lory. Mid Subsection 95%. Culprit Lesion RCA: Minimal Luminal Irregularities MO to OM2 Code(s): Z98.890 - Other specified postprocedural states Category: Surgical (2) HTN (hypertension): Code(s): I10 - Essential (primary) hypertension Category: Medical Qualifiers: Hypertension type: primary hypertension Qualified Code(s): I10 - Essential (primary) hypertension (3) Hyperlipidemia: Code(s): E78.5 - Hyperlipidemia, unspecified Category: Medical Qualifiers: Hyperlipidemia type: unspecified Qualified Code(s): E78.5 - Hyperlipidemia, unspecified (4) Arthritis of right acromioclavicular joint: Code(s): M19.011 - Primary osteoarthritis, right shoulder Category: Medical Plan 69 yo to establish care past medical surgical social reviewed CAD-stable. Left shoulder pain-prednisone.xray ordered Obesity,CAD-GLP ordered Orders: Orders XR shoulder LT min 2V 12/23/24 M25.512 - Pain in left shoulder Hemoglobin A1c 12/23/24 E66.9 - Obesity, unspecified, E78.5 - Hyperlipidemia, unspecified, I10 - Essential (primary) hypertension, I25.10 - Atherosclerotic heart disease of [place] coronary artery without angina pectoris MM screening mammo BI 12/23/24 Z12.31 - Encounter for screening mammogram for malignant neoplasm of breast Complete Blood Count Auto Diff 12/23/24 E66.9 - Obesity, unspecified, E78.5 - Hyperlipidemia, unspecified, I10 - Essential (primary) hypertension, I25.10 - Atherosclerotic heart disease of [place] coronary artery without angina pectoris Comprehensive Met. Panel 12/23/24 E66.9 - Obesity, unspecified, E78.5 - Hyperlipidemia, unspecified, I10 - Essential (primary) hypertension, I25.10 - Atherosclerotic heart disease of [place] coronary artery without angina pectoris Medications: New prednisone 40 mg (2 x 20 mg) PO DAILY 10 tabs 0RF Mounjaro (tirzepatide) for 4 weeks 2.5 mg (0.5 mL) subcut QWEEK 2 mL 0RF NS E66.9 - Obesity, unspecified, I25.10 - Atherosclerotic heart disease of [place] coronary artery without angina pectoris
--- OUTSIDE RECORDS SUMMARY | 2024-12-23 11:51 | XMS_ITS | Clinical Summary ---
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
--- OUTSIDE RECORDS SUMMARY | 2024-12-23 11:51 | XMS_ITS ---
Author Organization [facility] Address [address] [place] [address] Care Team Providers Care Furnace Repairer Name Role Phone Braulio Corrales MD Primary Care Provider Unavaildelta Robert Jr, Noel Diaz REASON FOR VISIT cell:[phone]/increase acid reflux Medications Medication SIG (Take, Route, Frequency, Duration) Notes Start Date End Date Status Pantoprazole Sodium 40 MG 1 tablet 1/2 t o 1 hour before morning meal Orally Once a day for 30 days 12/02/2024 Active Encounters Encounter Location Date Provider Diagnosis [facility] [address] [address] 12/01/2024 Noel Robert Jr Plan Of Treatment Medication Medication Name Sig Start Date Stop Date Notes Pantoprazole Sodium 40 MG 1 tablet 1/2 t o 1 hour before morning meal Orally Once a day for 30 days 12/02/2024 Progress Notes * HAILEYDANILO PENN ADOB:[birth year] (69 yo F)Acc No.[id number]:12/01/2024 Patient:?DANILO HART :1955???Age:69 Y???Sex:Female Address:[address] [place] [id number] * Refills? Start Pantoprazole Sodium Tablet Delayed Release, 40 MG, Orally, 30, 1 tablet 1/2 to 1 hour before morning meal, Once a day, 30 days, Refills=3 * true * Date:? Generated for Bruce egan/Dmitriy/Otiliaitting on:?12/23/2024 11:50 AM EDT
--- OUTSIDE RECORDS SUMMARY | 2024-12-23 11:51 | XMS_ITS | Patient Health Record ---
Author Organization [facility] Address [address] [place] [address] Care Team Providers Care Personnel Scheduler Name Role Phone Braulio Corrales MD Primary Care Provider Noel Lu Jr Unavailable Allergies Allergen (clinical drug ingredient) Drug/Non Drug Allergy documented on EMR Reaction Allergy Type Onset Date Status nitroglycerin Nitroglycerin sensitive Drug Allergy Active morphine Morphine Sulfate Unknown Drug Allergy Active Codeine Phosphate Unknown Drug Allergy Active sulfamethoxazole / trimethoprim Bactrim Unknown Drug Allergy Active Substance with 8-edifvfe-4-methylglutar yl-coenzyme A reductase inhibitor mechanism of action [...] Problem Status W/U Status Risk Notes Problem [id number] Colon cancer screening (Z12.11) Active confirmed Problem 46755488 Epigastric pain (R10.13) Active confirmed Problem 865014239 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 confirmed Problem 037235607 Gastroesophageal reflux disease without esophagitis (K21.9) Active confirmed Problem 49254049 Hiatal hernia (K44.9) Active confirmed Problem 47931189 Erosive esophagi tis (K22.10) Active confirmed Problem 53272478 Iron deficiency anemia, unspecified iron deficiency anemia type (D50.9) Active confirmed Problem 33679350 Gastrointestinal hemorrhage, unspecified gastrointestinal hemorrhage type (K92.2) Active confirmed Problem Benitez esophagu s (K22.70) Active confirmed Problem 866001918 Change in bowel function (R19.8) Active confirmed Encounters Encounter Location Date Provider Diagnosis [facility] [address] [place] [address] 12/01/2024 Noel Robert Jr Plan Of Treatment [...] Date MEDICARE OF [place] [address] [place] [address] [id number] DANILO MOSELEY Self - patient is the insured [employer] ATT[employer] CLAIMS [address] [place] [address] [id number] DANILO MOSELEY Self - patient is the [...]
== END 2024-12-23 11:15 | disposition home or self-care (01) ==
LOC: HO.HMCHD 10:29
PROVIDERS: PCP Internal Medicine; Visit Provider Internal Medicine
DX: Z98.890 Other specified postprocedural states (principal); I10 Essential (primary) hypertension; E78.5 Hyperlipidemia, unspecified; M19.011 Primary osteoarthritis, right shoulder

== ENCOUNTER → 2024-12-23 10:29 | Outpatient (BNVA) | payer MEDICARE, SELFPAY | PROVIDERS: PCP Internal Medicine; Visit Provider Internal Medicine | DX: Z13.89 Encounter for screening for other disorder (principal) | CPT/HCPCS: 96127; 99202 ==

== ENCOUNTER 2024-12-23 11:46 | Outpatient (REF) | payer MEDICARE, SELFPAY ==
--- OUTSIDE RECORDS SUMMARY | 2024-12-23 13:21 | XMS_ITS | Clinical Summary ---
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
[2024-12-23 13:31] LABS: MANUAL DIFF FLAG NO
[2024-12-23 13:41] LABS: Basophils Absolute Auto 0.1 X10*3/uL (0.0-0.2); Basophils Percent Auto 0.7 % (0-2); Eosinophils Absolute Auto 0.2 X10*3/uL (0.0-0.4); Hematocrit 41.4 % (37.0-47.0); Hemoglobin 13.3 g/dl (12.0-16.0); Imm Gran Abs Auto 0.07 X10*3/uL (0.00-0.03); Imm Gran Pct Auto 0.9 % (0.0-0.4); Lymphocytes Absolute Auto 1.5 X10*3/uL (1.2-4.9); Lymphocytes Percent Auto 19.9 % (20-40); Mean Corpuscular HGB Conc 32.1 g/dl (31.0-35.0); Mean Corpuscular Hemoglobin 27.5 pg (27.0-33.0); Mean Corpuscular Volume 85.5 fL (80.0-98.0); Mean Platelet Volume 10.6 fL (9.4-12.3); Monocytes Absolute Auto 0.6 X10*3/uL (0.1-1.2); Monocytes Percent Auto 7.6 % (2-11); Neutrophils Percent Auto 67.9 % (45-73); Platelet Count 271 X10*3/uL (160-400); Red Blood Count 4.84 X10*6/uL (4.20-5.50); Red Cell Distribution Width 14.2 % (11.0-16.0); White Blood Count 7.4 X10*3/uL (4.8-10.8)
[2024-12-23 13:51] LABS: Estimated Average Glucose 126 mg/dL; Hemoglobin A1C 148.0507 umol/L; Total Hemoglobin (HGBA1C) 3495.4843 umol/L
[2024-12-23 14:02] LABS: Alanine Aminotransferase 16 U/L (0-31); Albumin Level 3.9 g/dL (3.5-5.0); Alkaline Phosphatase 58 U/L (39-117); Anion Gap 12 (12-20); Aspartate Amino Transferase 26 U/L (5-31); Bilirubin Total 0.3 mg/dL (0.0-1.0); Blood Urea Nitrogen 16 mg/dL (9-16); Calcium 9.7 mg/dL (8.4-10.2); Carbon Dioxide 28 mmol/L (22-29); Chloride 103 mmol/L (96-108); Estimated Glomerular Filt Rate > 60; Glucose Random 101 mg/dL (60-115); Potassium 4.4 mmol/L (3.3-5.1); Sodium 139 mmol/L (135-145); Total Protein 7.3 g/dL (6.5-8.0)
== END 2024-12-23 11:47 | disposition home or self-care (01) ==
LOC: HO.10HDL 11:46
PROVIDERS: Visit Provider Internal Medicine
DX: E66.9 Obesity, unspecified (principal); I25.10 Atherosclerotic heart disease of native coronary artery without angina pectoris; I10 Essential (primary) hypertension; E78.5 Hyperlipidemia, unspecified; Z13.30 Encounter for screening examination for mental health and behavioral disorders, unspecified
CPT/HCPCS: 36415; 80053; 83036; 85025; 96127; 99202

== ENCOUNTER 2024-12-27 09:21 | Outpatient (REF) | payer MEDICARE, SELFPAY ==
--- NOTE | ~2024-12-27 | XR_ITS ---
CLINICAL HISTORY: M25.512 - Pain in left shoulder Left shoulder four views Comparison: None Findings: No acute fracture or dislocation identified. Degenerative change glenohumeral and AC joints. No radiopaque foreign body noted. Impression: No acute bony abnormality This document has been electronically signed by: Clyde Arteaga MD on 12/27/2024 19:55:19
--- OUTSIDE RECORDS SUMMARY | 2024-12-27 09:27 | XMS_ITS | Clinical Summary ---
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
--- OUTSIDE RECORDS SUMMARY | 2024-12-27 09:27 | XMS_ITS ---
Author Organization [facility] Address [address] [place] [address] Care Team Providers Care General Technician Name Role Phone Braulio Corrales MD Primary Care Provider Unavaildelta Robert Jr, Noel Diaz REASON FOR VISIT cell:[phone]/increase acid reflux Medications Medication SIG (Take, Route, Frequency, Duration) Notes Start Date End Date Status Pantoprazole Sodium 40 MG 1 tablet 1/2 t o 1 hour before morning meal Orally Once a day for 30 days 12/02/2024 Active Encounters Encounter Location Date Provider Diagnosis [facility] [address] [address] 12/01/2024 Noel Robert Jr Plan Of Treatment Medication Medication Name Sig Start Date Stop Date Notes Pantoprazole Sodium 40 MG 1 tablet 1/2 t o 1 hour before morning meal Orally Once a day for 30 days 12/02/2024 Progress Notes * HAILEYDANILO PENN ADOB:[birth year] (69 yo F)Acc No.[id number]:12/01/2024 Patient:?DANILO HART :1955???Age:69 Y???Sex:Female Address:[address] [place] [address] * Refills? Start Pantoprazole Sodium Tablet Delayed Release, 40 MG, Orally, 30, 1 tablet 1/2 to 1 hour before morning meal, Once a day, 30 days, Refills=3 * true * Date:? Generated for Bruce egan/Dmitriy/Otiliaitting on:?12/27/2024 09:26 AM EDT
--- OUTSIDE RECORDS SUMMARY | 2024-12-27 09:27 | XMS_ITS | Patient Health Record ---
Author Organization [facility] Address [address] [place] [address] Care Team Providers Care Claims Specialist Name Role Phone Braulio Corrales MD Primary Care Provider Noel Lu Jr Unavailable Allergies Allergen (clinical drug ingredient) Drug/Non Drug Allergy documented on EMR Reaction Allergy Type Onset Date Status nitroglycerin Nitroglycerin sensitive Drug Allergy Active morphine Morphine Sulfate Unknown Drug Allergy Active Codeine Phosphate Unknown Drug Allergy Active sulfamethoxazole / trimethoprim Bactrim Unknown Drug Allergy Active Substance with 3-ssjseaa-5-methylglutar yl-coenzyme A reductase inhibitor mechanism of action [...] Problem Status W/U Status Risk Notes Problem 410469242 Colon cancer screening (Z12.11) Active confirmed Problem 52300673 Epigastric pain (R10.13) Active confirmed Problem 034771869 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 confirmed Problem 170829280 Gastroesophageal reflux disease without esophagitis (K21.9) Active confirmed Problem 39959840 Hiatal hernia (K44.9) Active confirmed Problem 15826074 Erosive esophagi tis (K22.10) Active confirmed Problem 28428386 Iron deficiency anemia, unspecified iron deficiency anemia type (D50.9) Active confirmed Problem 41990612 Gastrointestinal hemorrhage, unspecified gastrointestinal hemorrhage type (K92.2) Active confirmed Problem Benitez esophagus (823685999) 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
== END 2024-12-27 09:22 | disposition home or self-care (01) ==
LOC: HO.XRAY 09:21
PROVIDERS: PCP Internal Medicine; Visit Provider Internal Medicine
DX: M25.512 Pain in left shoulder (principal)
CPT/HCPCS: 73030

== ENCOUNTER → 2024-12-27 09:22 | Outpatient (BNV) | payer MEDICARE, SELFPAY | PROVIDERS: PCP Internal Medicine; Visit Provider Radiology Diagnostic Radiology | DX: M25.512 Pain in left shoulder (principal) | CPT/HCPCS: 73030 ==

== ENCOUNTER 2024-12-30 12:47 | Outpatient (REF) | payer MEDICARE, SELFPAY ==
--- OUTSIDE RECORDS SUMMARY | 2024-12-30 13:24 | XMS_ITS ---
Author Organization [facility] Address [address] [place] [address] Care Team Providers Care Tooth Cutter Clutch Name Role Phone Braulio Corrales MD Primary Care Provider Unavaildelta Robert Jr, Noel Diaz [phone] REASON FOR VISIT cell:[phone]/increase acid reflux Medications Medication SIG (Take, Route, Frequency, Duration) Notes Start Date End Date Status Pantoprazole Sodium 40 MG 1 tablet 1/2 t o 1 hour before morning meal Orally Once a day for 30 days 12/02/2024 Active Encounters Encounter Location Date Provider Diagnosis [facility] [address] [address] 12/01/2024 Noel Robert Jr Plan Of Treatment Medication Medication Name Sig Start Date Stop Date Notes Pantoprazole Sodium 40 MG 1 tablet 1/2 t o 1 hour before morning meal Orally Once a day for 30 days 12/02/2024 Progress Notes * HAILEYDANILO PENN ADOB:[birth year] (69 yo F)Acc No.[id number]:12/01/2024 Patient:?DANILO HRAT :1955???Age:69 Y???Sex:Female Address:[address] [place] [address] * Refills? Start Pantoprazole Sodium Tablet Delayed Release, 40 MG, Orally, 30, 1 tablet 1/2 to 1 hour before morning meal, Once a day, 30 days, Refills=3 * true * Date:? Generated for Bruce egan/Dmitriy/Otiliaitting on:?12/30/2024 01:23 PM EDT
--- OUTSIDE RECORDS SUMMARY | 2024-12-30 13:24 | XMS_ITS | Patient Health Record ---
Author Organization [facility] Address [address] [place] [address] Care Team Providers Care Break Up Worker Name Role Phone Braulio Corrales MD Primary Care Provider Noel Lu Jr Unavailable [phone] Allergies Allergen (clinical drug ingredient) Drug/Non Drug Allergy documented on EMR Reaction Allergy Type Onset Date Status nitroglycerin Nitroglycerin sensitive Drug Allergy Active morphine Morphine Sulfate Unknown Drug Allergy Active Codeine Phosphate Unknown Drug Allergy Active sulfamethoxazole / trimethoprim Bactrim Unknown Drug Allergy Active Substance with 1-zcgnihy-4-methylglutar yl-coenzyme A reductase inhibitor mechanism of action [...] Problem Status W/U Status Risk Notes Problem 133375651 Colon cancer screening (Z12.11) Active confirmed Problem 23128154 Epigastric pain (R10.13) Active confirmed Problem 887229013 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 confirmed Problem 279113651 Gastroesophageal reflux disease without esophagitis (K21.9) Active confirmed Problem 04940462 Hiatal hernia (K44.9) Active confirmed Problem 05709356 Erosive esophagi tis (K22.10) Active confirmed Problem 12681491 Iron deficiency anemia, unspecified iron deficiency anemia type (D50.9) Active confirmed Problem 60766317 Gastrointestinal hemorrhage, unspecified gastrointestinal hemorrhage type (K92.2) Active confirmed Problem Benitez esophagu s (K22.70) Active confirmed Problem 444752447 Change in bowel function (R19.8) Active confirmed Encounters Encounter Location Date Provider Diagnosis [facility] [address] [place] [address] 12/01/2024 Noel Robert Jr Plan Of Treatment [...] Date MEDICARE OF [place] [address] [facility] [place] [address] [phone] [id number] DANILO MOSELEY Self - patient is the insured [employer] ATTN CLAIMS [address] [place] [address] [phone] [id number] DANILO MOSELEY Self - patient is the [...]
--- OUTSIDE RECORDS SUMMARY | 2024-12-30 13:24 | XMS_ITS | Clinical Summary ---
Author Organization [facility] ity Address [address] [place] [address] Care Team Providers Care Head Of Operation And Logistics Name Role Phone Mike Monson MD Primary Care Provider +1- [phone] Social History Tobacco Use Types Packs/Day Years [...] Documents on File Type Date Recorded Patient Services Mgr Expl anation Health Care Decision (hx) 06/30/2019 JUANI SHANNON DIRECTIVE Care Teams Head Of Operation And Logistics Relationship Specialty Start Date End Date Mike Monson MD [address] [place] [address] PCP - General 09/01/1992
== END 2024-12-30 12:48 | disposition home or self-care (01) ==
LOC: HO.MAMMO 12:47
PROVIDERS: PCP Internal Medicine; Visit Provider Internal Medicine
DX: Z12.31 Encounter for screening mammogram for malignant neoplasm of breast (principal)
CPT/HCPCS: 77063; 77067

== ENCOUNTER → 2024-12-30 13:30 | Outpatient (BNV) | payer MEDICARE, SELFPAY | PROVIDERS: PCP Internal Medicine; Visit Provider Internal Medicine | DX: Z12.31 Encounter for screening mammogram for malignant neoplasm of breast (principal) | CPT/HCPCS: 77063; 77067 ==

== ENCOUNTER 2025-06-02 10:13 | Outpatient (REF) | payer MEDICARE, SELFPAY ==
--- OUTSIDE RECORDS SUMMARY | 2025-05-24 08:40 | XMS_ITS ---
Author Organization [facility] Address [address] [place] [address] Care Team Providers Care Dairy Clerk Name Role Phone Meredith Huertas N.P. Primary Care Provider UnaNoel Miranda Jr [phone] REASON FOR VISIT adame's Encounters Encounter Location Date Provider Diagnosis [facility] Outpatient [address] [place] [phone] 05/24/2025 Noel Robert Jr Plan Of Treatment Next Appt Details Provider Name:Noel graves Jr, 06/21/2025 11:20:00 AM, [address] [place] [address], [phone], Progress Notes * DANILO HART ADOB:[birth year] (70 yo F)Acc No.[id number]:05/24/2025 EGD/MAC Patient: DANILO RENEE Provider: Karri Robert MD :1955 A ge:70 Y S ex:Female Date:05/24/2025 Address:[address] [place] [address] Pcp:Meredith Huertas N.P. Subjective: * Chief Complaints: [...] Date: 1 Generated for Bruce egan/Dmitriy/Guillaume on: 12:30 PM EDT
--- OUTSIDE RECORDS SUMMARY | 2025-06-02 12:30 | XMS_ITS | Clinical Summary ---
Author Organization [facility] it Address [address] [place] [address] Care Team Providers Care Coil Former Name Role Phone Mike Monson MD Primary Care Provider +1- [phone] Social History Tobacco Use Types Packs/Day Years [...] 2005 Zoster Vaccines (1 of 2) 2005 Depression Screening 08/18/2024 COVID-19 Vaccine (1 - 2023-2 5 season) 2025 Influenza Vaccine (#1) 2025 RSV Immunization Adult Patie nts (1 [...] Documents on File Type Date Recorded Patient Guide Setter Expl anation Health Care Decision (hx) 06/30/2019 JUANI SHANNON DIRECTIVE Care Teams Coil Former Relationship Specialty Start Date End Date Mike Monson MD [address] [place] [address] PCP - General 09/01/1992
--- OUTSIDE RECORDS SUMMARY | 2025-06-02 12:30 | XMS_ITS | Patient Health Record ---
Author Organization [facility] Address [address] [place] [address] Care Team Providers Care Wellness Ambassador Name Role Phone Dieterer Meredith Hester Primary Care Provider Noel Rachel Jr Unavailable Allergies Allergen (clinical drug ingredient) Drug/Non Drug Allergy documented on EMR Reaction Allergy Type Onset Date Status nitroglycerin Nitroglycerin sensitive Drug Allergy Active Morphine Sulfate Unknown Drug Allergy Active Codeine Phosphate Unknown Drug Allergy Active sulfamethoxazole / trimethoprim Bactrim Unknown Drug Allergy Active Substance with 0-erhndho-6-methylglutar yl-coenzyme A reductase inhibitor mechanism of action (substance) all statins (uncoded) Unknown Allergy Active Reason For Referral No Information Medications Medication SIG (Take, Route, Frequency, Duration) Notes Start Date End Date Status Vitamin D3 1000 UNIT 1 tablet Orally Once a day Active Losartan Potassium 25 MG 1 tablet Orally Once a day Active Atenolol 25 MG 1 tablet Orally Once a day Active hydroCHLOROthiazide 12.5 MG TAKE 1 CAPSU LE BY MOUTH EVERY OTHER DAY Oral; Duration: 90 every other day takes med Active Tylenol 325 MG 1 tablet as needed Orally every 4 hrs PRN Active Pantoprazole Sodium 40 MG TAKE 1 TABLET BY MOUTH ONCE A DAY 30 MINUTES TO 1 HOUR BEFORE MORNING MEAL; Duration: 90 Active Clopidogrel Bisulfate 75 MG TAKE 1 TABLE T BY MOUTH DAILY Oral; Duration: 90 Days Active amLODIPine Besylate 5 MG TAKE 1 TABLET B Y MOUTH DAILY Oral; Duration: 90 Days Active Atorvastatin Calcium 20 MG TAKE 1 TABLET BY MOUTH EVERYDAY AT BEDTIME Oral; Duration: 90 Days Active Immunizations Vaccine Route Administration Date Status Comme nts Influenza Unknown 05/31/2020 Administered Influenza Unknown 04/18/2022 Administered Influenza Unknown 06/08/2024 Administered Influenza Unknown 07/30/2018 Refused Influenza Unknown 02/03/2019 Refused Influenza Unknown 08/04/2019 Refused Problems Problem Type SNOMED Code ICD Code Onset Dates Problem Status W/U Status Risk Notes Problem Colon cancer screening (187812376) Colon cancer screening (Z12.11) Active confirmed Problem Epigastric pain (61824936) Epigastric pain (R10.13) Active confirmed Problem Long-term current use of drug therapy (329132474) Encounter for long-term (current) use of other high-risk medications (Z79.899) Active confirmed Problem Benitez's esophagus (888222185) Benitez's esophagus without dysplasia (K22.70) Active confirmed Problem Gastroesophageal reflux disease without esophagitis (492278576) Gastroesophageal reflux disease without esophagitis (K21.9) Active confirmed Problem Hiatal hernia (31690592) Hiatal hernia (K44.9) Active confirmed Problem Erosive esophagitis (71524996) Erosive esophagitis (K22.10) Active confirmed Problem Iron deficiency anemia (70093230) Iron deficiency anemia, unspecified iron deficiency anemia type (D50.9) Active confirmed Problem Gastrointestinal hemorrhage (78510523) Gastrointestinal hemorrhage, unspecified gastrointestinal hemorrhage type (K92.2) Active confirmed Problem Benitez esophagus (159423505) 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 [place] [address] 05/09/2025 Noel Robert Jr Benitez's esophagus without dysplasia K22.70 ; Colon cancer screening Z12.11 and Encounter for long-term (current) use of other high-risk medications Z79.899 [facility] [address] [place] [address] 12/01/2024 Noelmary Robert Jr [facility] [address] [place] [address] 05/05/2025 Noel Robert Jr [facility] [address] [place] [address] 05/19/2025 Noel Jakob Reynaga Assessments Encounter Date Diagnosis (ICD Code) Assessment Notes Treatment Notes Treatment Clinical Notes Section Notes 05/09/2025 Colon cancer screening (ICD-10 - Z12.11) We discussed her symptoms today. We recommended further evaluation with upper endoscopy. We discussed risks and benefits of the procedure today. She understands these and agrees to proceed. She is advised to stop hydrochlorothiazide the day before the procedure. She should stop clopidogrel 1 week before the procedure. 05/09/2025 Benitez's esophagus without dysplasia (ICD-10 - K22.70) We discussed her symptoms today. We recommended further evaluation with upper endoscopy. We discussed risks and benefits of the procedure today. She understands these and agrees to proceed. She is advised to stop hydrochlorothiazide the day before the procedure. She should stop clopidogrel 1 week before the procedure. 05/09/2025 Encounter for long-term (current) use of other high-risk medications (ICD-10 - Z79.899) We discussed her symptoms today. We recommended further evaluation with upper endoscopy. We discussed risks and benefits of the procedure today. She understands these and agrees to proceed. She is advised to stop hydrochlorothiazide the day before the procedure. She should stop clopidogrel 1 week before the procedure. Plan Of Treatment Pending Test Test Name Order Date CBC w/o DIFF 03/06/2018 CBC w/o DIFF 08/21/2018 Future Test Test Name Order Date UPPER GI ENDOSCOPY 03/06/2018 COLONOSCOPY 03/06/2018 UPPER GI ENDOSCOPY 01/29/2021 COLONOSCOPY 09/06/2022 UPPER GI ENDOSCOPY 05/09/2025 Next Appt Details Provider Name:Noel graves Jr, 06/21/2025 11:20:00 AM, [address] , [place], [place], [phone], Insurance Providers Payer Name Payer Address Payer Phone Subscriber Number Group Number Insured Name Patient Relationship to Insured Coverage Start Date Coverage End Date MEDICARE OF [place] [address] [place] [id number] DANILO MOSELEY Self - patient is the insured [employer] ATTN CLAIMS [address] [place] [address] [phone] [id number] DANILO MOSELEY Self - patient is the insured Medical (General) History Medical History History ICD Code colonoscopy 05/06/18, polypoi d rectal mass, transanal excision, inflammatory cloacogenic polyp, five-year followup. 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 Sen, inflamed cloacogenic polyp 07/2018 oral surgery cholecystectomy oophorectomy for cancer with subsequent hysterectomy tonsillectomy
[2025-06-02 14:17] LABS: Cholesterol 256 mg/dL (<200); HDL Cholesterol 48 mg/dL (>40); Triglycerides 257 mg/dL (<150)
== END 2025-06-02 10:14 | disposition home or self-care (01) ==
LOC: HO.10HDL 10:13
PROVIDERS: Visit Provider Physician Assistant Medical
DX: E78.5 Hyperlipidemia, unspecified (principal)
CPT/HCPCS: 36415; 80061

== ENCOUNTER 2025-06-07 10:26 | Outpatient (AMB) | payer MEDICARE, SELFPAY ==
--- OUTSIDE RECORDS SUMMARY | 2025-05-24 08:40 | XMS_ITS ---
Author Organization [facility] Address [address] [place] [address] Care Team Providers Care Adoption Social Worker Name Role Phone Meredith Huertas N.P. Primary Care Provider UnaNoel Miranda Jr REASON FOR VISIT adame's Encounters Encounter Location Date Provider Diagnosis [facility] Outpatient [address] [place] [phone] 05/24/2025 Noel Robert Jr Plan Of Treatment Next Appt Details Provider Name:Noel graves Jr, 06/21/2025 10:30:00 AM, [address] [place] [address], [phone], Progress Notes * DANILO HART ADOB:[birth year] (70 yo F)Acc No.[id number]:05/24/2025 EGD/MAC Patient: DANILO RENEE Provider: Karri Robert MD :1955 A ge:70 Y S ex:Female Date:05/24/2025 Address:[address] [place] [address] Pcp:Meredith Huertas N.P. Subjective: * Chief Complaints: * 1 . Adame's. * Medical History: Objective: * Vitals: Assessment: Plan: * Treatment: * * The named appointment provid er may or may not be the originator of this progress note, and it is not deemed complete until electronically signed by the appointment provider. Sign off status: Pending * Provider: Karri Robert MD Date: 1 Generated for Bruce egan/Dmitriy/Guillaume on: 12:27 PM EDT
[2025-06-07 10:28] VITALS: BP 120/72; PULSE 75; BMI 39.3
--- NOTE | 2025-06-07 10:28 | A.OFFVIS_ITS ---
Vital Signs 06/07/25 10:28 Height 5 ft Weight 201 lb 8.04 oz BMI 39.3 BP 120/72 Blood Pressure Location Lt brachial Position Sitting Pulse 75 Pulse Source Pulse Oximeter Intake Visit Reasons: 6m follow up Erp Technical Lead Required: No Accompanied by: Self / Same As Patient Allergies nitroglycerin (NITROGLYCERIN) Allergy (Severe, Verified 06/07/25 10:32) SEVERE HYPOTENSION codeine (CODEINE) Allergy (Intermediate, Verified 06/07/25 10:32) RASH Sulfa (Sulfonamide Antibiotics) (SULFA (SULFONAMIDE ANTIBIOTICS)) Allergy (Intermediate, Verified 06/07/25 10:32) VOMITING sulfamethoxazole (From BACTRIM) Allergy (Intermediate, Verified 06/07/25 10:32) VOMITING trimethoprim (From BACTRIM) Allergy (Intermediate, Verified 06/07/25 10:32) Vomiting Tzflljs-FET-RyL Reductase Inhibitor (RYBYDVY-MCA-RNH REDUCTASE INHIBITOR) Adverse Reaction (Severe, Verified 06/07/25 10:32) Severe muscle pain. Medication List - Last Reconciled 06/07/25 by Akash Márquez MD amlodipine 5 mg PO DAILY atenolol 25 mg PO DAILY cholecalciferol (vitamin D3) 25 mcg PO DAILY clopidogrel 75 mg PO DAILY coQ10 (ubiquinol) (Qunol Vincent CoQ10) 100 mg PO DAILY 30 days hydrochlorothiazide 12.5 mg PO DAILY losartan 50 mg PO BID pantoprazole 40 mg PO DAILY HPI Comments Details: Suki returns for follow-up. In 2022, she was seen in consultation regarding chest pain. She has had chest pains off and on initially thought to be from Benitez's esophagus. Subsequently, she underwent workup with a coronary CTA followed by cardiac catheterization. Underwent drug-eluting stent to OM2. Overall, she is feeling fine from the cardiac standpoint and does not have any active anginal-type symptoms. Still has the acid reflux issues. Otherwise, she cannot tolerate statins well because of fibromyalgia symptoms and she states that the pains get worse each time she takes statins. We tried Repatha but the cost is too high. PENDING SALE TO [facility] Medical History (Updated 05/09/25 @ 02:07 by ITA Mora) Osteoarthritis Atherosclerotic cardiovascular disease Snoring COVID-19 vaccine administered Hyperlipidemia Cervical cancer IBS (irritable bowel syndrome) HTN (hypertension) GERD (gastroesophageal reflux disease) Benitez esophagus Vitamin D deficiency Adrenal adenoma Surgical History S/P cardiac catheterization History of repair of hiatal hernia History of rectal polypectomy History of cholecystectomy Hx of hysterectomy History of tonsillectomy Hx of colonoscopy (~06/03/23) Hx of hernia repair Family History Father Lung cancer Mother Diabetes mellitus HTN (hypertension) COPD (chronic obstructive pulmonary disease) Brother Mental health disorder Social History Housing: House Alcohol intake: current Alcohol intake frequency: holidays/special occasions only Patient Tobacco Use Status: Never used Tobacco e-Cigarette/Vaping Use: Never Used Second Hand Smoke Exposure: Yes service: No Current occupational status: retired Cognitive needs: No Hearing needs: No Vision needs: Yes (rx glasses) Review of Systems Const Denies daytime sleepiness, Denies difficulty sleeping, Denies snoring, Denies stops breathing during sleep and Denies weakness Card Denies chest pain, Denies rapid heart rate, Denies irregular heart rhythm, Denies claudication, Denies leg edema, Denies lightheadedness, Denies palpitations, Reports dyspnea, Denies dyspnea on exertion, Denies orthopnea, Denies paroxysmal nocturnal dyspnea and Denies slow heart rate Resp Denies cough, Reports dyspnea, Denies dyspnea on exertion and Denies snoring GI Reports no additional complaints, Denies hematochezia, Denies change in stool character and Denies dyspepsia Musc Denies abnormal gait, Denies muscle weakness and Denies numbness Neuro Denies abnormal gait, Denies numbness and Denies weakness Endo Denies palpitations Physical Exam Vital Signs: Last Vital Signs Pulse 75 06/07/25 10:28 BP 120/72 06/07/25 10:28 BMI result Body Mass Index 39.3 Const General: comfortable and no acute distress Orientation/consciousness: patient oriented x3 HEENT Other: Unremarkable Head: Yes normal to inspection Neck Neck: Yes normal visual inspection Chest Chest palpation & inspection: normal inspection of the chest Resp Auscultation: clear to auscultation bilaterally Cardio Palpation: normal PMI Heart sounds: S1 normal heart sound present, S2 normal heart sound present, no gallops, no murmurs and no rubs GI Palpation (GI): Soft to palpation Back/Spine/Pelvis Other: unremarkable Skin General skin exam: no rashes or lesions noted Neuro General: patient oriented x3 Extrem General: Yes normal to inspection Psych Mental Status: mental status grossly normal Assessment & Plan Assessment & Plan (1) Atherosclerotic cardiovascular disease: Code(s): I25.10 - Atherosclerotic heart disease of [place] coronary artery without angina pectoris Category: Medical Plan: Cardiac catheterization data 01/2024. Successful drug-eluting stent to OM2. Severe D1 stenosis but medically treated-if necessary, then bifurcation PCI. Moderate diffuse proximal LAD disease. Due to acid reflux symptoms, off aspirin but she continue Plavix. With regard to lipids, she was on atorvastatin but but that gave her a lot of muscle aches but she already has baseline fibromyalgia. Any case, she states she has tried other statins as well in the past but she cannot remember the names. Try a small dose of Crestor. We can add Zetia to it in the future. If she cannot take statins daily, at least tied to take alternate days or few times a week. Repatha was previously approved by insurance but the cost was way too high. (2) HTN (hypertension): Comment: BP today was 128/76 Code(s): I10 - Essential (primary) hypertension Category: Medical Qualifiers: Hypertension type: primary hypertension Qualified Code(s): I10 - Essential (primary) hypertension Plan: Stable. On atenolol, amlodipine, losartan, hydrochlorothiazide. She states she would like to, if some of the medications. In that case, can try to stop the atenolol and cut back on the hydrochlorothiazide to 2 to 3 times a week. She will try that and monitor home blood pressures. (3) Hyperlipidemia: Code(s): E78.5 - Hyperlipidemia, unspecified Category: Medical Qualifiers: Hyperlipidemia type: unspecified Qualified Code(s): E78.5 - Hyperlipidemia, unspecified Plan: Plan as above. (4) First degree heart block: Code(s): I44.0 - Atrioventricular block, first degree Category: Medical Plan: To be monitored on EKGs. Plan Discussion Notes During the consultation, we discussed the patient's intolerance to statins and the potential for trying Rosuvastatin as an alternative. We also considered Zetia as a non-statin option if needed. The patient was advised on monitoring her blood pressure at home if she decides to discontinue atenolol, and to adjust hydrochlorothiazide dosing to manage kidney concerns. Patient was informed and verbally consented to the use of an ambient scribe for clinic note documentation during this visit. Orders: Orders Lipid Panel 3 Months E78.5 - Hyperlipidemia, unspecified Liver Panel 3 Months E78.5 - Hyperlipidemia, unspecified Medications: New rosuvastatin 10 mg PO DAILY 90 tabs 1RF Patient Instructions: - Try rosuvastatin starting with a low dose and monitor for side effects. - Monitor blood pressure at home if stopping atenolol. - Adjust hydrochlorothiazide to every other day if needed. - Continue dietary modifications for GERD management. Coding Level of Care Code Est Pt Level 4 (89610) Complex EM visit Add On G2211 Diagnoses Atherosclerotic cardiovascular disease I25.10 Primary hypertension I10 Hypertension type: primary hypertension Hyperlipidemia, unspecified hyperlipidemia type E78.5 Hyperlipidemia type: unspecified First degree heart block I44.0
--- OUTSIDE RECORDS SUMMARY | 2025-06-07 12:28 | XMS_ITS | Patient Health Record ---
Author Organization [facility] Address [address] [place] [address] Care Team Providers Care Board Hammer Operator Name Role Phone Dieterer Meredith Hester Primary Care Provider Noel Rachel Jr Unavailable Allergies Allergen (clinical drug ingredient) Drug/Non Drug Allergy documented on EMR Reaction Allergy Type Onset Date Status nitroglycerin Nitroglycerin sensitive Drug Allergy Active Morphine Sulfate Unknown Drug Allergy Active Codeine Phosphate Unknown Drug Allergy Active sulfamethoxazole / trimethoprim Bactrim Unknown Drug Allergy Active Substance with 5-eovtzma-0-methylglutar yl-coenzyme A reductase inhibitor mechanism of action [...] Status Risk Notes Problem Colon cancer screening (099628962) Colon cancer screening (Z12.11) Active confirmed Problem Epigastric pain (54592776) Epigastric pain (R10.13) Active confirmed Problem Long-term current use of drug therapy (941927367) Encounter for long-term (current) use of other high-risk medications (Z79.899) Active confirmed Problem Benitez's esophagus (674692838) Benitez's esophagus without dysplasia (K22.70) Active confirmed Problem Gastroesophageal reflux disease without esophagitis (258289096) Gastroesophageal reflux disease without esophagitis (K21.9) Active confirmed Problem Hiatal hernia (62476266) Hiatal hernia (K44.9) Active confirmed Problem Erosive esophagitis (33719554) Erosive esophagitis (K22.10) Active confirmed Problem Iron deficiency anemia (35141555) Iron deficiency anemia, unspecified iron deficiency anemia type (D50.9) Active confirmed Problem Gastrointestinal hemorrhage (83049095) Gastrointestinal hemorrhage, unspecified gastrointestinal hemorrhage type (K92.2) Active confirmed Problem Benitez esophagus (449648860) Benitez esophagus (K22.70) Active confirmed Problem Altered bowel function (14515044) Change in bowel function (R19.8) Active confirmed Vital Signs Temperature 98.6 degrees Fahrenheit 05/09/2025 Blood pressure diastolic 01 mm Hg 05/09/2025 Height 60 in 05/09/2025 Blood pressure systolic 001 mm Hg 05/09/2025 Weight 201.4 lbs 05/09/2025 BMI 39.33 kg/m2 05/09/2025 Encounters Encounter Location Date Provider Diagnosis [facility] [address] [place] [phone] 05/09/2025 Noel Robert Jr Benitez's esophagus without dysplasia K22.70 ; Colon cancer screening Z12.11 and Encounter for long-term (current) use of other high-risk medications Z79.899 [facility] [address] [place] [phone] 12/01/2024 Noelmary Robert Jr [facility] [address] [place] [address] 05/05/2025 Noel Robert Jr [facility] [address] [place] [phone] 05/19/2025 Noel Jakob Reynaga Assessments Encounter Date [...] Provider Name:Noel graves Jr, 06/21/2025 10:30:00 AM, [address] , [place], [place], [id number], Insurance Providers Payer Name Payer Address Payer Phone Subscriber Number Group Number Insured Name Patient Relationship to Insured Coverage Start Date Coverage End Date MEDICARE OF [place] [address] [place] [id number] DANILO MOSELEY Self - patient is the insured [employer] ATT[employer] CLAIMS [address] [place] [phone] [id number] DANILO MOSELEY Self - patient is the [...]
== END 2025-06-07 10:51 | disposition home or self-care (01) ==
LOC: HO.HCS 10:27
PROVIDERS: PCP Internal Medicine; Visit Provider Internal Medicine
DX: I25.10 Atherosclerotic heart disease of native coronary artery without angina pectoris (principal); I10 Essential (primary) hypertension; E78.5 Hyperlipidemia, unspecified; I44.0 Atrioventricular block, first degree
CPT/HCPCS: 99214; G2211

== ENCOUNTER → 2025-06-07 10:26 | Outpatient (BNVA) | payer MEDICARE, SELFPAY | PROVIDERS: PCP Internal Medicine; Visit Provider Internal Medicine | DX: I25.10 Atherosclerotic heart disease of native coronary artery without angina pectoris (principal); I44.0 Atrioventricular block, first degree; I10 Essential (primary) hypertension; E78.5 Hyperlipidemia, unspecified | CPT/HCPCS: 99212 ==